=== PATIENT | male | born 1945 | race Caucasian/White ===

== ENCOUNTER → 2016-11-12 | Outpatient (CLI) | payer MEDICARE ==
--- NOTE | 2016-11-12 09:11 | XR ---
EXAMINATION TYPE: XR lumbar spine 2 or 3V DATE OF EXAM: 11/12/2016 8:57 AM COMPARISON: NONE HISTORY: Low back pain TECHNIQUE: 3 view lumbar spine FINDINGS: There is very dense calcification through the aorta. There 5 lumbar-type vertebral bodies. L1-L3 pedicles are intact. L4 and L5 pedicles are obscured by pedicle screws and fixation rods. Disc spacer is present L4-5. Some posterior disc space narrowing at L3-4 is present. There is narrowing of the L5-S1 disc height. Alignment is normal. IMPRESSION: 1. Postsurgical L4-L5 pedicle screws. 2. Degenerative disc changes lower lumbar spine
== END | disposition home or self-care (01) ==
LOC: RADXRMAIN 08:37
PROVIDERS: ATTEND Internal Medicine Geriatric Medicine
DX: M47.816 Spondylosis without myelopathy or radiculopathy, lumbar region (principal); Z98.890 Other specified postprocedural states
CPT/HCPCS: 72100

== ENCOUNTER → 2016-12-26 | Outpatient (CLI) | payer MEDICARE ==
[2016-12-26 08:28] LABS: Blood Urea Nitrogen 14 mg/dL (9-20); Non-African American GFR(MDRD) >60 (>60 ml/min/1.73 sqM)
== END | disposition home or self-care (01) ==
LOC: LABWHC1 07:58
PROVIDERS: ATTEND Physical Medicine & Rehabilitation
DX: Z01.818 Encounter for other preprocedural examination (principal); N28.9 Disorder of kidney and ureter, unspecified; M47.27 Other spondylosis with radiculopathy, lumbosacral region; Z98.1 Arthrodesis status; Z86.19 Personal history of other infectious and parasitic diseases
CPT/HCPCS: 36415; 82565; 84520

== ENCOUNTER → 2018-01-07 | Outpatient (CLI) | payer MEDICARE ==
[2018-01-07 10:37] LABS: Blood Urea Nitrogen 14 mg/dL (9-20)
--- NOTE | 2018-01-07 13:15 | CT ---
EXAMINATION TYPE: CT angio neck DATE OF EXAM: 01/07/2018 COMPARISON: None HISTORY: 72-year-old male follow-up Carotid Stenosis TECHNIQUE: Contiguous axial scanning of the head and neck performed with IV Contrast, patient injecte d with 100 ml mL of Isovue 370. Coronal/sagittal MIP reconstructions performed. 3-D reconstructions g enerated on a dedicated independent workstation. CT DLP: 265.00 mGycm Automated exposure control for dose reduction was used. 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 There is moderate atherosclerotic lynette cification within the aortic arch. Emphysematous changes in the visualized upper lungs. Mild atherosclerotic narrowing at the origin of the left common carotid artery. Mild atherosclerotic calcification eccentrically within the upper left common carotid artery. However, there is more sever e atherosclerotic calcification at the bifurcation causing a severe, 70% stenosis of the distal left CCA just prior to the bifurcation. There is mild, less than 25% atherosclerotic narrowing within the left carotid bulb. Tortuosity of th e upper left ICA. On the right, there is motion artifact causing blurring of the lumen at the brachiocephalic bifurcati on and proximal left common and subclavian arteries. Mild atherosclerotic narrowing at the origin of the right subclavian artery. Severe atherosclerotic calcification at the right carotid bifurcation causing a severe, 80% stenosis of the distal CCA just prior to the bifurcation. Atherosclerotic calcifications continue eccentricall y within the right carotid bulb where there is mild,, less than 50% stenosis. Prominent atherosclerotic calcifications at the origin of the bilateral vertebral arteries. Underlyin g severe stenoses difficult to exclude. IMPRESSION: 1. SEVERE ATHEROSCLEROTIC CALCIFICATION AT THE BILATERAL BIFURCATIONS. 2. ON THE RIGHT, THIS RESULTS IN A SEVERE, 80% STENOSIS OF THE DISTAL CCA JUST PRIOR TO THE BIFURCATI ON AND MILD, LESS THAN 50% STENOSIS AT THE RIGHT CAROTID BULB. 3. ON THE LEFT, THIS RESULTS IN A SEVERE, 70% STENOSIS OF THE DISTAL CCA JUST PRIOR TO THE BIFURCATIO N AND MILD, LESS THAN 25% STENOSIS AT THE LEFT CAROTID BULB. 4. PROMINENT ATHEROSCLEROTIC CALCIFICATIONS AT THE BILATERAL VERTEBRAL ARTERY ORIGINS. UNDERLYING SEV ERE STENOSES NOT EXCLUDED.
== END | disposition home or self-care (01) ==
LOC: RADCTMAIN 09:47
PROVIDERS: ATTEND Surgery
DX: I65.23 Occlusion and stenosis of bilateral carotid arteries (principal)
CPT/HCPCS: 82565; 84520; 70498; 36415; Q9967

== ENCOUNTER → 2018-02-26 | Outpatient (CLI) | payer MEDICARE ==
[2018-02-26 10:55] LABS: Appearance,Urine Clear (Clear); Bilirubin,Urine Negative (Negative); Blood,Urine Negative (Negative); Color,Urine Yellow; Glucose,Urine (UA) Negative (Negative); Ketones,Urine Negative (Negative); Leukocyte Esterase,Urine Negative (Negative); Nitrite,Urine Negative (Negative); PH, Urine 6.5 (5.0-8.0); Protein,Urine Negative (Negative); Specific Gravity,Urine 1.011 (1.001-1.035); Urobilinogen,Urine <2.0 mg/dL (<2.0)
[2018-02-26 10:59] LABS: Basophils % (A) 0 %; Eosinophils # (A) 0.1 k/uL (0-0.7); Eosinophils % (A) 2 %; HCT 38.7 % (39.0-53.0); HGB 12.7 gm/dL (13.0-17.5); Lymphocytes # (A) 0.8 k/uL (1.0-4.8); Lymphocytes % (A) 24 %; MCH 33.6 pg (25.0-35.0); MCHC 32.8 g/dL (31.0-37.0); MCV 102.3 fL (80.0-100.0); Macrocytosis Slight; Mean Platelet Volume 6.7; Monocytes # (A) 0.4 k/uL (0-1.0); Monocytes % (A) 11 %; Neutrophils % (A) 60 %; Platelet Count 226 k/uL (150-450); RBC 3.78 m/uL (4.30-5.90); WBC 3.4 k/uL (3.8-10.6)
[2018-02-26 11:10] LABS: Anion Gap 7 mmol/L; Blood Urea Nitrogen 14 mg/dL (9-20); Carbon Dioxide 29 mmol/L (22-30); Chloride 106 mmol/L (98-107); Potassium 4.3 mmol/L (3.5-5.1); Sodium 142 mmol/L (137-145)
== END | disposition home or self-care (01) ==
LOC: LABPAT 09:37
PROVIDERS: ATTEND Surgery
DX: Z01.812 Encounter for preprocedural laboratory examination (principal); I65.22 Occlusion and stenosis of left carotid artery
CPT/HCPCS: 36415; 80051; 81003; 82565; 84520; 85025; 86850; 86900; 86901

== ENCOUNTER 2018-03-05 07:03 | Inpatient (IN) | payer MEDICARE ==
[2018-02-27 15:31] VITALS: BMI 25.0
[~2018-03-05 07:03] MED LIST: DEXAMETHASONE SOD PHOSPHATE 10 MG/ML 1 ML VIAL IV ONE; LIDOCAINE 1% 20 ML VIAL (10MG/ML) FOR IV START INTRADERMA PRN; MIDAZOLAM 2 MG/2 ML VIAL IV PRN; ONDANSETRON 4 MG/2 ML VIAL IVP ONE; ceFAZolin IN SWFI 2 GM/20 ML SYRINGE IVP ONE; fentaNYL (PF) 50 MCG/ML 2 ML AMP IV PRN
[2018-03-05] MEDS: LACTATED RINGERS 1,000 ML IV SCH (08:24)
[2018-03-05] MEDS ORDERED: PHENYLEPHRINE 40 MG in SODIUM CHLORIDE 0.9% 250 ML IV SCH (08:30)
[2018-03-05] MEDS ORDERED: NITROGLYCERIN-D5W PMX 50 MG in DEXTROSE/WATER 1 250ML.BAG IV SCH (08:30)
[2018-03-05] MEDS ORDERED: HEPARIN SODIUM,PORCINE 10,000 UNIT/ML 1 ML VIAL ONE (09:48)
[2018-03-05] MEDS ORDERED: LABETALOL 5 MG/ML VIAL MDV ONE (09:48)
[2018-03-05] MEDS ORDERED: GLYCOPYRROLATE 0.2 MG/ML 2 ML VIAL ONE (09:48)
[2018-03-05] MEDS ORDERED: PHENYLEPHRINE-0.9% NACL SYG 1 MG/10 ML SYRINGE ONE (09:48)
[2018-03-05] MEDS ORDERED: fentaNYL (PF) 50 MCG/ML 2 ML AMP ONE (09:48)
[2018-03-05] MEDS ORDERED: PROTAMINE SULFATE 10 MG/ML 5 ML VIAL IV ONE (09:48)
[2018-03-05] MEDS ORDERED: SUCCINYLCHOLINE CHLORIDE 100 MG/5 ML SYR IV ONE (09:48)
[2018-03-05] MEDS ORDERED: LIDOCAINE 1% INJ 10MG/ML (20 ML MDV) ONE (09:48)
[2018-03-05] MEDS ORDERED: MIDAZOLAM 2 MG/2 ML VIAL ONE (09:48)
[2018-03-05] MEDS ORDERED: NEOSTIGMINE 1 MG/ML 10 ML VIAL ONE (09:48)
[2018-03-05] MEDS ORDERED: ROCURONIUM BROMIDE 10 MG/ML 10 ML VIAL IV ONE (09:48)
[2018-03-05] MEDS ORDERED: PROPOFOL 10 MG/ML 20 ML VIAL IV ONE (09:48)
[2018-03-05] MEDS ORDERED: THROMBIN (BOVINE) 5,000 UNIT VIAL TOPICAL ONE ×2 (10:58)
[2018-03-05] MEDS ORDERED: GELATIN SPONGE,ABSORB (LARGE) 1 EACH SPONGE TOPICAL ONE (10:59)
[2018-03-05] MEDS ORDERED: LIDOCAINE 1% INJ 10MG/ML (20 ML MDV) IM ONE (11:01)
[2018-03-05] MEDS ORDERED: LACTATED RINGERS 1,000 ML IV ONE ×2 (11:37→16:15)
[2018-03-05] MEDS ORDERED: HYDROcodone/APAP 5-325MG 1 EACH TAB PO PRN (11:51)
[2018-03-05] MEDS ORDERED: CYCLOBENZAPRINE 10 MG TAB PO PRN (11:55)
--- NOTE | 2018-03-05 12:10 | P.OP ---
Date of Procedure: 03/05/18 Preoperative Diagnosis: Urodynamic severe left carotid stenosis Postoperative Diagnosis: Same Procedure(s) Performed: Left carotid endarterectomy with patch angioplasty. Implants: Bovine pericardial patch Anesthesia: SERA Surgeon: Freddy Moore Estimated Blood Loss (ml): 50 Urine output (ml): 300 Pathology: other (Left carotid plaque) Condition: stable Disposition: PACU Indications for Procedure: Hemodynamically severe left internal carotid artery stenosis. Patient is a 72-year-old male who has a long-standing history of peripheral vascular disease affecting both lower extremities who in a routine's surveillance was noted to have bilateral carotid bruits. He did undergo carotid duplex and eventually a cerebral angiogram that was remaining hemodynamically severe left ICA stenosis. We discussed both medical and surgical options. Was felt the patient be a good candidate for endarterectomy. The procedure, risk and benefits were discussed with the patient and the patient wished to proceed with carotid endarterectomy. Operative Findings: Urinary severe left carotid stenosis Description of Procedure: Patient was brought to the [facility] and placed in the supine position Mr. general endotracheal anesthesia delivered by the department anesthesiology. Patient received prophylactically administered intravenous antibiotics in the perioperative phase. Gómez catheter was placed to gravity drainage. The left neck supra and infraclavicular areas as well as the anterior chest wall were sterilely prepped and draped in usual manner. A skin incision was made along the lateral aspect of the neck anterior to the sternocleidomastoid border. The incision was deepened through the subcu change tissues. Hemostasis was achieved using electrocautery. Incision was deepened through the subcutaneous tissues. Facial vein was identified doubly ligated with silk suture and divided. Dissection was carried down the level the carotid sheath. The carotid artery was identified. The internal jugular vein was mobilized posteriorly, fully exposing the carotid artery. The common carotid artery was encircled Vesseloops as far proximally as possible. The dissection was then carried along the common carotid artery to the level of bulb. The external carotid and superior thyroid arteries were encircled Vesseloops. The dissection was then carried along the internal carotid to a level past the plaque burden. The vagus nerve was identified and left undisturbed. The hypoglossal nerve was also identified and left undisturbed. The patient was systemically heparinized and ACT was drawn. This was measured at 321. Vesseloops around the external carotid and superior thyroid were drawn closed followed by the internal and finding the common Carotid artery. Arteriotomy was made in the common and extended with Pott Rider scissors past the level of plaque in the internal carotid artery. Good backbleeding was identified. Stump pressure was obtained and mean stump pressure was 70 mmHg. Thus was felt no shunting was necessary. Endarterectomy was then performed beginning at the level of the common carotid extending to the level of bulb. Retraction endarterectomy was performed on the external system. The endarterectomy was then continued into the internal carotid and the distal end feathered well without need for tacking suture. The plaque was then sent to pathology for further evaluation. Remaining luminal surface was inspected for any loose or free-floating material and removed where identified. Bovine pericardial patch was selected and patch angioplasty closure of the arteriotomy was completed with 6-0 Prolene suture placed in running fashion. Just prior to completion of the anastomotic line backbleeding was allowed to occur through the internal system. Backbleeding was then allowed to occur through the external system after the origin of the internal was occluded as well as flushing through the common system. No thrombus was retrieved and any situation. The anastomotic line was completed. The internal was then occluded at its origin. Surrounding the superior thyroid and external carotid and then the common carotid were released thus flushing any potential debris into the external system. Flow was then restored into the internal system. Excellent pulse was identified within the internal carotid distal to the endarterectomy plane. The heparin was reversed with 25 mg of protamine. Powdered Surgicel was placed about the anastomotic line to help assure hemostasis. The wound was irrigated with antibiotic containing solution and no further points of bleeding were noted. Deep tissues were closed with 3-0 Vicryl. Dermis was closed with 4-0 Monocryl placed in running intradermal fashion. Steri-Strips and appropriate dressing was applied. She tolerated the procedure well and was extubated. He awoke without apparent neurologic deficit and was taken to the recovery area in satisfactory and stable condition.
[2018-03-05] MEDS: MORPHINE SULFATE 4 MG/ML SYRINGE IV ONE ×4 (12:39→14:08)
[2018-03-05] MEDS ORDERED: BISACODYL 5 MG TABLET.DR PO ONE (13:00)
[2018-03-05 17:07] LABS: Glucose,Whole Blood 137 mg/dL (75-99)
[2018-03-05] MEDS: GABAPENTIN 300 MG CAP PO SCH ×2 (17:10→22:05)
[2018-03-05] MEDS: ceFAZolin 1,000 MG in DEXTROSE/WATER 1 50ML.BAG IVPB SCH ×2 (17:51→23:41)
[2018-03-05] MEDS ORDERED: PRAVASTATIN SODIUM 40 MG TAB PO SCH (21:00)
[2018-03-05] MEDS: HYDROcodone/APAP 5-325MG 1 EACH TAB PO PRN (22:04)
[2018-03-06] MEDS: HYDROcodone/APAP 5-325MG 1 EACH TAB PO PRN (04:47)
[2018-03-06 04:52] LABS: Basophils % (A) 0 %; Eosinophils % (A) 1 %; HGB 11.7 gm/dL (13.0-17.5); Lymphocytes # (A) 0.7 k/uL (1.0-4.8); Lymphocytes % (A) 11 %; MCH 32.5 pg (25.0-35.0); MCHC 32.6 g/dL (31.0-37.0); MCV 99.8 fL (80.0-100.0); Macrocytosis Slight; Mean Platelet Volume 7.3; Monocytes # (A) 0.6 k/uL (0-1.0); Monocytes % (A) 9 %; Neutrophils # (A) 4.7 k/uL (1.3-7.7); Neutrophils % (A) 77 %; Platelet Count 247 k/uL (150-450); RDW 14.2 % (11.5-15.5); WBC 6.1 k/uL (3.8-10.6)
[2018-03-06 05:08] LABS: Anion Gap 6 mmol/L; Blood Urea Nitrogen 12 mg/dL (9-20); Calcium 8.8 mg/dL (8.4-10.2); Carbon Dioxide 26 mmol/L (22-30); Chloride 105 mmol/L (98-107); Glucose 104 mg/dL (74-99); Potassium 3.9 mmol/L (3.5-5.1); Sodium 137 mmol/L (137-145)
[2018-03-06] MEDS: GABAPENTIN 300 MG CAP PO SCH (08:43)
[2018-03-06] MEDS: LACTATED RINGERS 1,000 ML IV SCH (08:45)
[2018-03-06] MEDS ORDERED: LISINOPRIL 20 MG TAB PO SCH (09:00)
[2018-03-06] MEDS ORDERED: ALLOPURINOL 300 MG TAB PO SCH (09:00)
[2018-03-06] MEDS ORDERED: HYDROCHLOROTHIAZIDE 25 MG TAB PO SCH (09:00)
[2018-03-06] MEDS ORDERED: ASPIRIN 81 MG PO SCH (09:00)
--- NOTE | 2018-03-06 10:50 | P.PN ---
Subjective Progress Note Date: 03/06/18 Principal diagnosis: Left ICA stenosis Patient is without symptoms status post left carotid endarterectomy yesterday. He is requiring no IV medications. He denies neurologic symptoms. No shortness of breath or chest discomfort. Objective - Vital Signs Vital signs: Vital Signs Temp 98 F 03/06/18 08:00 Pulse 63 03/06/18 09:00 Resp 16 03/06/18 09:00 BP 113/51 03/06/18 00:00 Pulse Ox 95 03/06/18 09:00 Intake & Output 03/05/18 03/06/18 03/06/18 18:59 06:59 18:59 Intake Total 2160 360 Output Total 350 900 Balance 1810 -540 Weight 83.7 kg Intake: IV 2000 340 Lactated Ringers 1,000 ml 240 @ 20 mls/hr IV .Q24H [facility] Rx#:[id number] ceFAZolin 1,000 mg In 100 Dextrose/Water 1 50ml.bag @ 100 mls/hr IVPB Q8HR [facility] Rx#:[id number] Intake, IV Titration 40 20 Amount Lactated Ringers 1,000 ml 40 @ 0 mls/hr IV [facility] Rx#:[id number] Lactated Ringers 1,000 ml 20 @ 20 mls/hr IV .Q24H [facility] Rx#:[id number] Oral 120 Output: Urine 300 900 Estimated Blood Loss 50 Other: # Voids 0 ABP, PAP, CO, CI - Last Documented Arterial Blood Pressure 140/44 - Exam There is some mild swelling. There is no induration. It is not tense or tender. - Labs CBC & Chem 7: 03/06/18 04:35 03/06/18 04:35 Labs: Abnormal Lab Results - Last 24 Hours (Table) 03/05/18 03/06/18 03/06/18 Range/Units 16:48 04:35 04:35 RBC 3.60 L (4.30-5.90) m/uL Hgb 11.7 L (13.0-17.5) gm/dL Hct 36.0 L (39.0-53.0) % Lymphocytes # 0.7 L (1.0-4.8) k/uL Creatinine 0.55 L (0.66-1.25) mg/dL Glucose 104 H (74-99) mg/dL POC Glucose (mg/dL) 137 H (75-99) mg/dL Assessment and Plan (1) Stenosis of left carotid artery Current Visit: Yes Status: Acute Code(s): I65.22 - OCCLUSION AND STENOSIS OF LEFT CAROTID ARTERY SNOMED Code(s): 474103521874983 Plan: The patient is recovered nicely from his left carotid endarterectomy. He is to be discharged on his standard home medications. I gave him instructions in regards to activities and wound care. He will see Dr. Templeton in a week. He will also follow with primary care in a week.
--- NOTE | 2018-03-06 11:22 | P.CONS ---
History of Present Illness - Reason for Consult Consult date: 03/06/18 medical management Requesting physician: Freddy Moore - Chief Complaint status post left carotid endarterectomy. - History of Present Illness This is a 72-year-old male one of Dr. Sloan with a previous medical history significant for hypertension and hypertensive cardiovascular disease, hyperlipidemia, osteoarthritis, history of hepatitis, history of severe peripheral arterial disease status post bilateral fem-pop bypass he was found to have significant stenosis of both carotid artery with 90% stenosis of the left carotid artery and 80% stenosis of the right carotid artery he ended up going for left carotid endarterectomy was done yesterday and we were asked to see him for medicine for medical management. Patient is sitting up in bed in no apparent distress he denies any chest pain, shortness breath, he has no abdominal pain, he still has the arterial line in place, he has no abdominal pain, nausea, vomiting, or diarrhea. Review of Systems Constitutional: Denies chronic headaches, Denies fever, Denies lethargy, Denies weakness Eyes: denies blurred vision, denies bulging eye, denies decreased vision Ears: deny: decreased hearing Ears, nose, mouth and throat: Denies dysphagia, Denies neck lump, Denies sore throat, Denies vertigo Cardiovascular: Reports high blood pressure, Denies chest pain, Denies decreased exercise tolerance, Denies dyspnea on exertion, Denies rapid heart beat, Denies shortness of breath Respiratory: Denies congestion, Denies cough with sputum, Denies home oxygen, Denies sleep apnea, Denies snoring, Denies wheezing Gastrointestinal: Denies abdominal pain, Denies bloating, Denies excessive gas, Denies loss of appetite, Denies melena, Denies nausea, Denies vomiting Genitourinary: Denies dysuria, Denies nocturia, Denies polyuria Musculoskeletal: Denies myalgias Musculoskeletal: absent: ankle pain, ankle stiffness, ankle swelling, elbow pain , elbow stiffness, elbow swelling, foot pain, foot stiffness, foot swelling, hand pain, hand stiffness, hand swelling, hip pain, hip stiffness, hip swelling , knee pain, knee stiffness, knee swelling, shoulder pain, shoulder stiffness, shoulder swelling, wrist pain, wrist stiffness, wrist swelling Integumentary: Denies pruritus, Denies rash Neurological: Denies numbness, Denies weakness Psychiatric: Denies anxiety, Denies depression Endocrine: Denies fatigue, Denies weight change Past Medical History Past Medical History: Hyperlipidemia, Hypertension, Osteoarthritis (OA), Vascular Disorder Additional Past Medical History / Comment(s): HEPATITIS UNKNOWN TYPE YEARS AGO History of Any Multi-Drug Resistant Organisms: None Reported Past Surgical History: Appendectomy, Back Surgery Additional Past Surgical History / Comment(s): LEFT LEG- BYPASS, RIGHT LEG BYPASS , BOWEL SURGERY Past Anesthesia/Blood Transfusion Reactions: No Reported Reaction Smoking Status: Former smoker (patient is spoke about 2 pack every day since was 11-year-old and quit to the age of 38.) - Past Family History Mother Family Medical History: No Reported History (mother at age of 88 from septic shock.) Father Family Medical History: Coronary Artery Disease (CAD) (father at age of 94 he had history of CABG with aortic aneurysm.) Brother(s) Family Medical History: No Reported History (patient has one brother no major medical problem.) Sister(s) Family Medical History: No Reported History (patient has one sister problems) Son(s) Family Medical History: No Reported History (patient has 2 sons no major medical problems.) Daughter(s) Family Medical History: No Reported History (patient has one daughter no major medical problems.) Medications and Allergies Home Medications Medication Instructions Recorded Confirmed Type Allopurinol [Zyloprim] 300 mg PO DAILY 02/27/18 03/05/18 History Aspirin EC [Ecotrin] 650 mg PO TID PRN 02/27/18 03/05/18 History Gabapentin [Neurontin] 300 mg PO TID 02/27/18 03/05/18 History Hydrochlorothiazide 25 mg PO DAILY 02/27/18 03/05/18 History Pravastatin Sodium [Pravachol] 40 mg PO DAILY 02/27/18 03/05/18 History amLODIPine BESYLATE [Norvasc] 10 mg PO DAILY 02/27/18 03/05/18 History Allergies Allergy/AdvReac Type Severity Reaction Status Date / Time lisinopril Allergy Swelling Verified 03/05/18 16:15 OF FACE Physical Exam Vitals: Vital Signs Temp Pulse Pulse Pulse Resp BP BP 03/06/18 09:00 63 16 03/06/18 08:00 98 F 82 18 03/06/18 07:00 55 L 20 03/06/18 06:00 61 16 03/06/18 05:00 82 46 H 03/06/18 04:00 97.7 F 82 56 L 18 03/06/18 03:00 64 20 03/06/18 02:00 53 L 15 03/06/18 01:00 56 L 15 03/06/18 00:00 98 F 61 58 L 24 113/51 03/05/18 23:00 60 14 03/05/18 22:08 62 20 03/05/18 22:00 63 15 03/05/18 21:00 70 20 03/05/18 20:00 98.1 F 84 64 24 03/05/18 19:00 78 17 03/05/18 18:00 85 18 03/05/18 17:45 71 22 03/05/18 17:30 71 18 120/53 03/05/18 17:15 74 24 120/53 03/05/18 17:00 98.3 F 68 17 03/05/18 16:00 64 18 130/45 03/05/18 15:00 66 20 136/49 03/05/18 14:32 68 24 132/53 03/05/18 14:00 69 18 137/58 03/05/18 13:30 69 18 146/53 03/05/18 13:15 64 18 146/52 03/05/18 13:00 64 20 132/44 03/05/18 12:45 65 18 142/46 03/05/18 12:30 67 16 158/56 03/05/18 12:15 66 16 147/64 03/05/18 12:00 67 16 158/85 03/05/18 11:42 97.0 F L 67 16 139/61 BP Pulse Ox 03/06/18 09:00 95 03/06/18 08:00 96 03/06/18 07:00 94 L 03/06/18 06:00 95 03/06/18 05:00 94 L 03/06/18 04:00 93 L 03/06/18 03:00 93 L 03/06/18 02:00 93 L 03/06/18 01:00 90 L 03/06/18 00:00 94 L 03/05/18 23:00 92 L 03/05/18 22:08 93 L 09/20/18 22:00 93 L 03/05/18 21:00 93 L 03/05/18 20:00 93 L 03/05/18 19:00 95 03/05/18 18:00 97 03/05/18 17:45 96 03/05/18 17:30 03/05/18 17:15 96 03/05/18 17:00 96 03/05/18 16:00 98 03/05/18 15:00 122/59 96 03/05/18 14:32 97 03/05/18 14:00 134/68 98 03/05/18 13:30 130/68 97 03/05/18 13:15 96 03/05/18 13:00 96 03/05/18 12:45 132/63 95 03/05/18 12:30 147/64 97 03/05/18 12:15 149/74 96 03/05/18 12:00 150/57 97 03/05/18 11:42 137/61 97 Intake and Output 03/05/18 03/06/18 03/06/18 22:59 06:59 14:59 Intake Total 240 280 Output Total 475 425 Balance -235 -145 Intake: IV 60 280 Lactated Ringers 1,000 ml 60 180 @ 20 mls/hr IV .Q24H [facility] Rx#:[id number] ceFAZolin 1,000 mg In 100 Dextrose/Water 1 50ml.bag @ 100 mls/hr IVPB Q8HR [facility] Rx#:[id number] Intake, IV Titration 60 Amount Lactated Ringers 1,000 ml 40 @ 0 mls/hr IV [facility] Rx#:[id number] Lactated Ringers 1,000 ml 20 @ 20 mls/hr IV .Q24H [facility] Rx#:[id number] Oral 120 Output: Urine 475 425 Other: # Voids 0 0 Weight 83.7 kg ABP, PAP, CO, CI - Last 8 Hours Arterial Blood Pressure 140/44 Arterial Blood Pressure 139/55 Arterial Blood Pressure 142/44 Arterial Blood Pressure 131/39 Arterial Blood Pressure 135/47 Arterial Blood Pressure 142/47 - Constitutional General appearance: average body habitus, no acute distress - EENT Eyes: anicteric sclerae, EOMI, PERRLA, no ptosis, no scleral icterus, normal appearance ENT: hearing grossly normal, NA/AT, normal oropharynx, no thrush Ears: bilateral: normal - Neck Neck: no lymphadenopathy, normal ROM, no rigidity, no stridor, no thyromegaly Carotids: bilateral: upstroke normal (LCEA) Thyroid: bilateral: normal size - Respiratory Respiratory: bilateral: diminished, negative: dullness, rales, rhonchi, wheezing , prolonged expiration, prolonged inspiration - Cardiovascular Rhythm: regular Heart sounds: normal: S1, S2 Abnormal Heart Sounds: systolic murmur, no S3 Gallop, no S4 Gallop, no click - Gastrointestinal General gastrointestinal: normal bowel sounds, soft, no splenomegaly, no tenderness, no umbilical hernia, no ventral hernia - Integumentary Integumentary: normal, normal turgor - Neurologic Neurologic: CNII-XII intact - Musculoskeletal Musculoskeletal: gait normal, strength equal bilaterally - Psychiatric Psychiatric: A&O x's 3, appropriate affect, intact judgment & insight Results CBC & Chem 7: 03/06/18 04:35 03/06/18 04:35 Labs: Abnormal Lab Results - Last 24 Hours (Table) 03/05/18 03/06/18 03/06/18 Range/Units 16:48 04:35 04:35 RBC 3.60 L (4.30-5.90) m/uL Hgb 11.7 L (13.0-17.5) gm/dL Hct 36.0 L (39.0-53.0) % Lymphocytes # 0.7 L (1.0-4.8) k/uL Creatinine 0.55 L (0.66-1.25) mg/dL Glucose 104 H (74-99) mg/dL POC Glucose (mg/dL) 137 H (75-99) mg/dL Assessment and Plan Assessment: Assessment and plan: 1. Postoperative day #1 status post left carotid adenoidectomy. Patient has been off medicine drip, his blood pressure is stable at this time, patient was seen earlier by vascular surgery and he has been cleared to be discharged home. Patient was instructed to use the incentive spirometer to reduce the incidence of atelectasis and hospital-acquired pneumonia, patient pain is controlled well he will be discharged home with follow-up with his primary care physician as an outpatient 2 weeks also with vascular surgery per their recommendations. 2. History of severe PAD post bilateral fem-pop bypass. Continue patient on aspirin 325 mg once every day, continue patient on Pravachol 40 mg orally once every day, increase activity. 3. Hypertension and hypertensive cardiovascular disease. Continue with amlodipine 5 mg orally once every day and hydrochlorothiazide 25 mg orally once every day. 4. Hyperlipidemia. Continue Pravachol 40 mg at bedtime. 5. History of gout. Continue patient on allopurinol 300 mg orally once every day. 6. Chronic low back pain. Continue gabapentin 600 mg orally 3 times every day. 7. DVT prophylaxis. 8. GI prophylaxis. 9. Thank you for the consult patient is medically stable to be discharged home
[2018-03-06 12:53] VITALS: BP 143/52; PULSE 63; RESP 18; TEMP 97.7
== END 2018-03-06 13:29 | disposition home or self-care (01) | DRG 39 ==
LOC: 2ORMAIN 07:03 → 6ICU 16:08
PROVIDERS: ADMIT Surgery; ATTEND Surgery
PROC: 03UL0KZ Supplement Left Internal Carotid Artery with Nonautologous Tissue Substitute, Open Approach (ICD-10-PCS; principal; 2018-03-05 09:00)
PROC: 03CL0ZZ Extirpation of Matter from Left Internal Carotid Artery, Open Approach (ICD-10-PCS; principal; 2018-03-05 09:00)
DX: I65.23 Occlusion and stenosis of bilateral carotid arteries (principal); E78.5 Hyperlipidemia, unspecified; G89.29 Other chronic pain; I11.9 Hypertensive heart disease without heart failure; I73.9 Peripheral vascular disease, unspecified; Z79.899 Other long term (current) drug therapy; Z82.49 Family history of ischemic heart disease and other diseases of the circulatory system; Z87.891 Personal history of nicotine dependence; Z79.82 Long term (current) use of aspirin; Z79.891 Long term (current) use of opiate analgesic; M10.9 Gout, unspecified; Z88.8 Allergy status to other drugs, medicaments and biological substances; M54.5 Low back pain
CPT/HCPCS: 80048; 85025; 86850; 86900; 86901; 88304; 88311

== ENCOUNTER 2018-10-02 09:33 | Inpatient (IN) | payer MEDICARE ==
[2018-10-02] MEDS ORDERED: FUROSEMIDE 10 MG/ML 4 ML VIAL IV STA (10:03)
--- NOTE | 2018-10-02 10:08 | ED ---
General Adult HPI - General Chief complaint: Shortness of Breath Stated complaint: water retention Time Seen by Provider: 10/02/18 09:57 Source: patient, family, RN notes reviewed Mode of arrival: ambulatory Limitations: no limitations - History of Present Illness Initial comments: Patient is a pleasant 73-year-old male presenting to the emergency department with difficulty breathing. Symptoms have been present for several days. Patient has had some bilateral leg edema over the past several days. Dyspnea does worsen with exertion. Patient also has orthopnea. No history of similar symptoms previously. No known history of bradycardia. No chest pain. No cough or fever. - Related Data Home Medications Medication Instructions Recorded Confirmed Allopurinol [Zyloprim] 300 mg PO DAILY 02/27/18 10/02/18 Gabapentin [Neurontin] 300 mg PO BID 02/27/18 10/02/18 Hydrochlorothiazide 25 mg PO DAILY 02/27/18 10/02/18 Pravastatin Sodium [Pravachol] 40 mg PO DAILY 02/27/18 10/02/18 amLODIPine BESYLATE [Norvasc] 10 mg PO HS 02/27/18 10/02/18 Ascorbic Acid [Vitamin C] 500 mg PO DAILY 10/02/18 10/02/18 Cholecalciferol [Vitamin D3] 1,000 unit PO DAILY 10/02/18 10/02/18 Multivitamins, Thera [Multivitamin 1 tab PO DAILY 10/02/18 10/02/18 (formulary)] Allergies Allergy/AdvReac Type Severity Reaction Status Date / Time lisinopril Allergy Swelling Verified 10/02/18 09:53 OF FACE Review of Systems ROS Statement: Those systems with pertinent positive or pertinent negative responses have been documented in the HPI. ROS Other: All systems not noted in ROS Statement are negative. Constitutional: Denies: fever, chills Eyes: Denies: eye pain ENT: Denies: ear pain Respiratory: Reports: dyspnea. Denies: cough Cardiovascular: Denies: chest pain, palpitations Endocrine: Reports: fatigue Gastrointestinal: Denies: abdominal pain Genitourinary: Denies: dysuria Musculoskeletal: Denies: back pain Skin: Denies: rash Neurological: Denies: weakness Past Medical History Past Medical History: Hyperlipidemia, Hypertension, Osteoarthritis (OA), Vascular Disorder Additional Past Medical History / Comment(s): HEPATITIS UNKNOWN TYPE YEARS AGO History of Any Multi-Drug Resistant Organisms: None Reported Past Surgical History: Appendectomy, Back Surgery Additional Past Surgical History / Comment(s): LEFT LEG- BYPASS, RIGHT LEG BYPASS , BOWEL SURGERY Past Anesthesia/Blood Transfusion Reactions: No Reported Reaction Past Psychological History: No Psychological Hx Reported Smoking Status: Former smoker Past Alcohol Use History: Daily Past Drug Use History: None Reported - Past Family History Mother Family Medical History: No Reported History (mother at age of 88 from septic shock.) Father Family Medical History: Coronary Artery Disease (CAD) (father at age of 94 he had history of CABG with aortic aneurysm.) Brother(s) Family Medical History: No Reported History (patient has one brother no major medical problem.) Sister(s) Family Medical History: No Reported History (patient has one sister problems) Son(s) Family Medical History: No Reported History (patient has 2 sons no major medical problems.) Daughter(s) Family Medical History: No Reported History (patient has one daughter no major medical problems.) General Exam Limitations: no limitations General appearance: alert, in no apparent distress Head exam: Present: atraumatic Eye exam: Present: normal appearance, PERRL ENT exam: Present: normal oropharynx Neck exam: Present: normal inspection Respiratory exam: Present: decreased breath sounds (Bilateral bases) Cardiovascular Exam: Present: bradycardia Expanded Peripheral pulses: 2+: Radial (R), Radial (L), Dorsalis Pedis (R), Dorsalis Pedis (L) GI/Abdominal exam: Present: soft. Absent: tenderness Extremities exam: Present: pedal edema (+1 bilateral). Absent: calf tenderness Neurological exam: Present: alert Psychiatric exam: Present: normal affect, normal mood Skin exam: Present: normal color Course Vital Signs 10/02/18 10/02/18 09:42 10:10 Temperature 96 F L Pulse Rate 44 L Respiratory 24 16 Rate Blood Pressure 186/61 O2 Sat by Pulse 94 L Oximetry EKG Findings - EKG Comments: EKG Findings:: Sinus bradycardia at 43. There is concern for second degree AV block type II. DC 274. QRS 168. QTC 582. QTC 491. Left axis. Left bundle branch block. No acute ST change. Septal Q waves. Medical Decision Making - Medical Decision Making Patient was reevaluated. Patient and family updated on results and plan. Case was discussed in detail with Dr. Neil, who will consult. Case was also discussed in detail with Dr. Miles, who will admit for Dr. Sloan. - Lab Data Result diagrams: 10/02/18 10:05 10/02/18 10:05 Lab Results 10/02/18 10/02/18 10/02/18 Range/Units 10:05 10:05 10:05 WBC 5.5 (3.8-10.6) k/uL RBC 4.21 L (4.30-5.90) m/uL Hgb 13.8 (13.0-17.5) gm/dL Hct 41.8 (39.0-53.0) % MCV 99.4 (80.0-100.0) fL MCH 32.8 (25.0-35.0) pg MCHC 33.0 (31.0-37.0) g/dL RDW 14.8 (11.5-15.5) % Plt Count 247 (150-450) k/uL Neutrophils % 73 % Lymphocytes % 12 % Monocytes % 10 % Eosinophils % 1 % Basophils % 0 % Neutrophils # 4.0 (1.3-7.7) k/uL Lymphocytes # 0.7 L (1.0-4.8) k/uL Monocytes # 0.6 (0-1.0) k/uL Eosinophils # 0.1 (0-0.7) k/uL Basophils # 0.0 (0-0.2) k/uL Macrocytosis Slight PT (9.0-12.0) sec INR (<1.2) APTT (22.0-30.0) sec Sodium 136 L (137-145) mmol/L Potassium 3.8 (3.5-5.1) mmol/L Chloride 104 (98-107) mmol/L Carbon Dioxide 19 L (22-30) mmol/L Anion Gap 13 mmol/L BUN 13 (9-20) mg/dL Creatinine 0.72 (0.66-1.25) mg/dL Est GFR (CKD-EPI)AfAm >90 (>60 ml/min/1.73 sqM) Est GFR (CKD-EPI)NonAf >90 (>60 ml/min/1.73 sqM) Glucose 93 (74-99) mg/dL Calcium 9.8 (8.4-10.2) mg/dL Total Bilirubin 0.9 (0.2-1.3) mg/dL AST 45 (17-59) U/L ALT 81 H (21-72) U/L Alkaline Phosphatase 162 H (38-126) U/L NT-Pro-B Natriuret Pep 1610 pg/mL Total Protein 7.5 (6.3-8.2) g/dL Albumin 4.5 (3.5-5.0) g/dL 10/02/18 Range/Units 10:05 WBC (3.8-10.6) k/uL RBC (4.30-5.90) m/uL Hgb (13.0-17.5) gm/dL Hct (39.0-53.0) % MCV (80.0-100.0) fL MCH (25.0-35.0) pg MCHC (31.0-37.0) g/dL RDW (11.5-15.5) % Plt Count (150-450) k/uL Neutrophils % % Lymphocytes % % Monocytes % % Eosinophils % % Basophils % % Neutrophils # (1.3-7.7) k/uL Lymphocytes # (1.0-4.8) k/uL Monocytes # (0-1.0) k/uL Eosinophils # (0-0.7) k/uL Basophils # (0-0.2) k/uL Macrocytosis PT 10.2 (9.0-12.0) sec INR 0.9 (<1.2) APTT 25.5 (22.0-30.0) sec Sodium (137-145) mmol/L Potassium (3.5-5.1) mmol/L Chloride (98-107) mmol/L Carbon Dioxide (22-30) mmol/L Anion Gap mmol/L BUN (9-20) mg/dL Creatinine (0.66-1.25) mg/dL Est GFR (CKD-EPI)AfAm (>60 ml/min/1.73 sqM) Est GFR (CKD-EPI)NonAf (>60 ml/min/1.73 sqM) Glucose (74-99) mg/dL Calcium (8.4-10.2) mg/dL Total Bilirubin (0.2-1.3) mg/dL AST (17-59) U/L ALT (21-72) U/L Alkaline Phosphatase (38-126) U/L NT-Pro-B Natriuret Pep pg/mL Total Protein (6.3-8.2) g/dL Albumin (3.5-5.0) g/dL Disposition Clinical Impression: Bradycardia, Congestive heart failure, Second degree heart block Disposition: ADMITTED IP TO THIS HOSP Is patient prescribed a controlled substance at d/c from ED?: No Referrals: Terry Sloan MD [Primary Care Provider] - 1-2 days Decision Time: 10:54
[2018-10-02 10:20] LABS: Basophils % (A) 0 %; Eosinophils # (A) 0.1 k/uL (0-0.7); Eosinophils % (A) 1 %; HCT 41.8 % (39.0-53.0); HGB 13.8 gm/dL (13.0-17.5); Lymphocytes # (A) 0.7 k/uL (1.0-4.8); Lymphocytes % (A) 12 %; MCH 32.8 pg (25.0-35.0); MCV 99.4 fL (80.0-100.0); Macrocytosis Slight; Mean Platelet Volume 8.1; Monocytes # (A) 0.6 k/uL (0-1.0); Monocytes % (A) 10 %; Neutrophils % (A) 73 %; Platelet Count 247 k/uL (150-450); RBC 4.21 m/uL (4.30-5.90); RDW 14.8 % (11.5-15.5); WBC 5.5 k/uL (3.8-10.6)
[2018-10-02 10:27] LABS: INR 0.9 (<1.2); Partial Thromboplastin Time 25.5 sec (22.0-30.0); Prothrombin Time 10.2 sec (9.0-12.0)
[2018-10-02 10:28] LABS: ALT 81 U/L (21-72); AST 45 U/L (17-59); Albumin 4.5 g/dL (3.5-5.0); Alkaline Phosphatase 162 U/L (38-126); Anion Gap 13 mmol/L; Blood Urea Nitrogen 13 mg/dL (9-20); Calcium 9.8 mg/dL (8.4-10.2); Carbon Dioxide 19 mmol/L (22-30); Chloride 104 mmol/L (98-107); Glucose 93 mg/dL (74-99); Potassium 3.8 mmol/L (3.5-5.1); Sodium 136 mmol/L (137-145); Total Bilirubin 0.9 mg/dL (0.2-1.3); Total Protein 7.5 g/dL (6.3-8.2)
--- NOTE | 2018-10-02 10:33 | XR ---
EXAMINATION TYPE: XR chest 2V DATE OF EXAM: 10/02/2018 COMPARISON: 11/26/2012 HISTORY: Difficulty breathing TECHNIQUE: Frontal and lateral views of the chest are obtained. FINDINGS: Underlying COPD is seen with biapical lucency and flattening of the diaphragms. Trace pleu ral effusions are noted. There is increase in interstitial prominence in comparison to the prior. 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 Cranial mediasti nal silhouette is otherwise within normal limits. IMPRESSION: New trace pleural effusions, underlying emphysematous change, and increasing interstitia l prominence that may relate to fluid overload or atypical pneumonitis.
[2018-10-02] MEDS ORDERED: ASPIRIN 325 MG TAB PO STA (10:55)
[2018-10-02] MEDS ORDERED: ceFAZolin 1,000 MG in SODIUM CHLORIDE 0.9% IRRIGATIO 250 ML IRRIGATION ONE (11:45)
[2018-10-02] MEDS ORDERED: ceFAZolin IN SWFI 2 GM/20 ML SYRINGE IVP ONE ×2 (11:45→14:15)
[2018-10-02] MEDS ORDERED: SODIUM CHLORIDE 0.9% 1,000 ML IV ONE (13:20)
[2018-10-02] MEDS ORDERED: IODIXANOL 270 MG/ML 50 ML ML IV ONE (13:21)
[2018-10-02] MEDS ORDERED: IV FLUID CONTINUATION 400 ML IV ONE (13:21)
[2018-10-02] MEDS ORDERED: MIDAZOLAM (PF) 2 MG/2 ML VIAL IVP ONE (14:15)
[2018-10-02] MEDS: LIDOCAINE 1% INJ 10MG/ML (20 ML MDV) SQ ONE ×2 (14:16→15:45)
[2018-10-02] MEDS ORDERED: LIDOCAINE 1% INJ 10MG/ML (20 ML MDV) SQ ONE ×2 (14:32→15:11)
[2018-10-02] MEDS: NITROGLYCERIN SL TABS 0.4 MG TAB SUBLINGUAL ONE ×2 (14:45→16:17)
[2018-10-02] MEDS ORDERED: FUROSEMIDE 10 MG/ML 4 ML VIAL IV SCH (16:00)
[2018-10-02] MEDS ORDERED: amLODIPine 5 MG TAB PO ONE (16:46)
[2018-10-02] MEDS ORDERED: amLODIPine 5 MG TAB ONE (16:47)
--- NOTE | 2018-10-02 16:48 | CONS ---
CONSULTATION Abiel is a 73-year-old gentleman with history of hypertension and dyslipidemia who presented to hospital complaining of shortness of breath, fatigue, tiredness and leg edema for the last several days. In the emergency room, his heart rate is 40 beats per minute. He is in second-degree heart block. An echocardiogram shows preserved LV function with mild mitral and tricuspid regurgitation and aortic regurgitation. I believe patient's symptoms, heart failure are related to the second-degree heart sounds, and I advised him to undergo permanent pacemaker. If we cannot get it done today, we will do a temporary pacemaker on him. PAST MEDICAL HISTORY: Significant for hypertension. CURRENT MEDICATIONS: Current medications include: 1. Norvasc 10 daily. 2. Multivitamins. 3. Vitamin C. 4. Pravachol 40 daily. 5. Hydrochlorothiazide. 6. Neurontin. 7. Zyloprim. ALLERGIES: LISINOPRIL. FAMILY HISTORY: Negative for premature coronary artery disease. SOCIAL HISTORY: Negative for smoking, EtOH abuse or drug abuse. REVIEW OF SYSTEMS: HEENT is unremarkable. CARDIAC: As described above. RESPIRATORY: As described above. GI: Negative. GENITOURINARY: Negative. ALLERGY: Negative. IMMUNOLOGY: Negative. SKIN: Negative. MUSCULOSKELETAL: Significant for arthritis. PSYCHOSOCIAL: Negative. ENDOCRINE: Negative. DERMATOLOGY: Negative. CONSTITUTIONAL: Significant for fatigue and tiredness. Rest of the system review is not relevant. PHYSICAL EXAMINATION: Patient is comfortable at rest. Afebrile. Heart rate is 43 beats per minute. Blood pressure is 177/65. Oxygen saturation is 93% on 2 L. There is no jugular venous distention. Carotid upstroke is diminished. Chest exam reveals good air entry bilaterally. Heart exam reveals first and second heart sounds. No gallop. No murmur. Abdomen is soft. Examination of extremities reveals bilateral pitting edema. LABS: Hemoglobin 13.8. Creatinine is 0.7. BNP is elevated at 1610. Troponin is normal. TSH is pending at this time. ASSESSMENT: 1. Symptomatic second-degree heart block. 2. Acute diastolic heart failure secondary to bradycardia. 3. Uncontrolled hypertension. PLAN: Patient will need a permanent pacemaker. Treat him with IV diuretics and control his blood pressure optimally. MMODL / IJN: [id number] /
[2018-10-02] MEDS: SODIUM CHLORIDE 0.9% 1,000 ML IV SCH ×2 (16:49→16:50)
--- NOTE | 2018-10-02 17:01 | XR ---
EXAMINATION TYPE: XR chest 1V portable DATE OF EXAM: 10/02/2018 COMPARISON: 10/02/2018 earlier exam INDICATION: Lead placement check TECHNIQUE: Single frontal view of the chest is obtained. FINDINGS: The heart size is mildly prominent. The pulmonary vasculature is increasing in prominence. Some perihilar infiltrates may be developing. The previous small right pleural effusion is less well visualized currently. Pacemaker is placed on the left. No pneumothorax is evident. 2 leads present have normal orientation. IMPRESSION: 1. No pneumothorax post 2-lead pacemaker placement. 2. Changes suggestive for increasing pulmonary edema.
[2018-10-02] MEDS ORDERED: amLODIPine 5 MG TAB PO PRN (17:05)
[2018-10-02] MEDS ORDERED: POTASSIUM CHLORIDE ER 20 MEQ TAB.ER PO STA (17:14)
--- NOTE | 2018-10-02 17:33 | CC ---
CARDIAC CATHETERIZATION REPORT DATE OF SERVICE: 10/02/2018. PROCEDURE PERFORMED: 1. Transvenous temporary pacemaker from the right femoral venous approach. 2. Dual-chamber permanent pacemaker from left infraclavicular approach. PERFORMED BY: Dr. Nam Cruz. SEDATION: Moderate conscious sedation time was 119 minutes. The patient was administered Versed. His oxygen saturation, hemodynamics and EKG were monitored closely. CLINICAL INFORMATION: Mr. Abiel Somers is a 73-year-old gentleman with a history of hypertension and hyperlipidemia, who came into the hospital, complains of weakness, lack of energy, abdominal discomfort, and dizziness and lightheadedness. He was found to be in a high- grade AV block with a 2 as to 1 conduction and underlying wide QRS more or less of a left bundle type. Because of symptomatic bradycardia and high-grade AV block with underlying left bundle, he was advised a dual-chamber pacemaker by Dr. Mcpherson who evaluated him in the emergency room. I went and spoke to the patient and his and explained to him the rationale, risks, benefits, options. They understood all details and wished to proceed with the procedure. PROCEDURE NOTE: Under local anesthesia and strict aseptic precautions, a 6-Khmer introducer was placed in the right femoral vein. Under fluoroscopic guidance, a transvenous 5-Khmer balloon tipped pacer was positioned into the right ventricular apex with a threshold of 0.6 mV. Pacemaker was set at a backup rate of 35 beats per minute with a mA of 5.0. I then unscrubbed and with a new pair of the gloves proceeded to perform the permanent pacemaker. Under strict aseptic precautions and local anesthesia after the antibiotic was infused I obtained an access into the left axillary vein. Initially with a micropuncture needle technique, I attempted access and I hit the artery at least on 2 occasions. I applied pressure, waited for some time and using the venogram as a guide and changing the access point, I was able to get access into the left axillary vein. Fluoroscopic guidance was used to advance the wire. Wire was kept in the right atrium. A 3-1/2 inch linear incision was made medial and parallel to the left deltopectoral groove. Blunt dissection was carried until the pectoral muscle. A subfascial pocket was then performed. I requested the help of Dr. Velazquez when I had difficulty with access but Dr. Velazquez did not perform any intervention. He assisted me mainly with the pocket initially. Subsequently, I continued the procedure. Another access point was obtained medial to the previous access point into the left axillary vein. Another wire was advanced and positioned in the right atrium. A 6-Khmer introducer was advanced over the wire. Under fluoroscopic guidance, a ventricular lead was positioned in the right ventricular apex. Thresholds and sensitivities were obtained. Good numbers were achieved. The lead was then secured to the underlying muscle with 2 separate sutures of 0 silk. The pacemaker position was checked in MONGOLIAN and SANCHEZ projections. I performed a 10 V pacing as well to check for any diaphragmatic pacing which was not evident. I then advanced another 6-Khmer introducer into the next wire medial to the previous wire. By this time, patient went into an atrial flutter at a rate of about 35 to 40 beats per minute. I advanced and position the atrial lead in the right atrial appendage. Unfortunately, we could not pace the atrium because patient was in atrial flutter. P waves were about 1.0-1.5. These were all flutter waves. The impedance was 410 mV. The lead was secured to the underlying fascia. The diaphragmatic pacing was performed and the lead was checked in MONGOLIAN and SANCHEZ projections. The slack in both the leads was ensured. The leads were then connected to the pulse generator and the pulse generator was placed in the pocket. The pocket was closed in 2 layers. Excellent hemostasis was achieved. Patient tolerated the procedure well without complications. A chest x-ray is pending. PACEMAKER INFORMATION: The wound care nurse [employer], model Assurity MRI 2272 serial number [id number]. The atrial lead wound care nurse [employer], model number tendril [id number] TC/52, serial number [id number]. Ventricular lead wound care nurse [employer], model tendril STS [id number] EC/58, serial number [id number]. Atrial threshold could not be obtained because the patient was in flutter. The impedance was 410 mV and the P-waves were between 1.0 and 1.5 mV, but these are flutter waves. Ventricular threshold was 0.75 mV at 0.4 milliseconds. The R-wave is a more than 12.0. Impedance was 830 mV. The pacemaker was set at a backup rate of 50 and a high rate of 110 with a paced AV delay of 200 milliseconds. The pacemaker was set to a DDD mode. The patient however is in a atrial flutter with a slow rate and therefore mode switch will probably happen. Patient tolerated procedure well without complications. He was sent to the telemetry unit and he will have an x-ray today. JEREMIAS / GEOVANY: [id number] /
[2018-10-02] MEDS ORDERED: HEPARIN SODIUM,PORCINE 5,000 UNIT/ML 1 ML VIAL SQ SCH (21:00)
[2018-10-02] MEDS ORDERED: amLODIPine 10 MG TAB PO SCH (21:00)
[2018-10-02] MEDS: ceFAZolin IN SWFI 2 GM/20 ML SYRINGE IVP SCH (21:25)
[2018-10-02] MEDS: HEPARIN SODIUM,PORCINE 5,000 UNIT/ML 1 ML VIAL SQ SCH (21:26)
[2018-10-02] MEDS: GABAPENTIN 300 MG CAP PO SCH (21:26)
[2018-10-02] MEDS: ACETAMINOPHEN TAB 325 MG TAB PO PRN (23:07)
[2018-10-03] MEDS: ceFAZolin IN SWFI 2 GM/20 ML SYRINGE IVP SCH ×3 (01:12→12:14)
[2018-10-03] MEDS: ACETAMINOPHEN TAB 325 MG TAB PO PRN ×3 (07:01→23:09)
--- NOTE | 2018-10-03 07:44 | XR ---
EXAMINATION TYPE: XR chest 2V DATE OF EXAM: 10/03/2018 COMPARISON: 10/02/2018 HISTORY: 73-year-old male lead placement check TECHNIQUE: PA and lateral views FINDINGS: Left anterior chest wall pacemaker generator with right atrial and right ventricular leads. Heart upper limits of normal in size. Atherosclerotic calcifications within the aorta. Trace pneumome diastinum difficult to exclude on the left lateral margin of the upper descending thoracic aorta. Thi s may have been present in retrospect. No appreciable pneumothorax. Patchy right mid and lower lung d ensity slightly increased. Small effusions are also present. IMPRESSION: 1. Difficult to exclude trace pneumomediastinum. This may have been present in retrospect as well. 2. Small effusions with patchy right mid and lower lung opacities, slightly increased. Possible seque la of asymmetric pulmonary edema. Pneumonia is also possible. Follow-up recommended.
[2018-10-03 07:47] LABS: Basophils % (A) 0 %; Eosinophils # (A) 0.1 k/uL (0-0.7); Eosinophils % (A) 2 %; HCT 42.6 % (39.0-53.0); HGB 13.7 gm/dL (13.0-17.5); Lymphocytes # (A) 0.7 k/uL (1.0-4.8); Lymphocytes % (A) 12 %; MCH 32.7 pg (25.0-35.0); MCHC 32.1 g/dL (31.0-37.0); MCV 101.8 fL (80.0-100.0); Macrocytosis Slight; Mean Platelet Volume 7.1; Monocytes # (A) 0.4 k/uL (0-1.0); Monocytes % (A) 8 %; Neutrophils # (A) 4.1 k/uL (1.3-7.7); Neutrophils % (A) 75 %; Platelet Count 214 k/uL (150-450); RBC 4.18 m/uL (4.30-5.90); RDW 13.9 % (11.5-15.5); WBC 5.5 k/uL (3.8-10.6)
[2018-10-03] MEDS: SODIUM CHLORIDE 0.9% 1,000 ML IV SCH ×2 (08:00→08:20)
[2018-10-03 08:18] LABS: Anion Gap 13 mmol/L; Blood Urea Nitrogen 13 mg/dL (9-20); Calcium 9.3 mg/dL (8.4-10.2); Carbon Dioxide 22 mmol/L (22-30); Chloride 105 mmol/L (98-107); Glucose 82 mg/dL (74-99); Potassium 3.5 mmol/L (3.5-5.1); Sodium 140 mmol/L (137-145)
--- NOTE | 2018-10-03 08:53 | ECHOF ---
Referral Reason:Heart Failure MEASUREMENTS -------- HEIGHT: 182.9 cm WEIGHT: 88.5 kg BP: RVIDd: 3.1 cm (< 3.3) IVSd: 1.0 cm (0.6 - 1.1) LVIDd: 5.6 cm (3.9 - 5.3) LVPWd: 1.2 cm (0.6 - 1.1) IVSs: 1.6 cm LVIDs: 4.1 cm LVPWs: 1.8 cm Ao Diam: 3.1 cm (2.0 - 3.7) AV Cusp: 1.6 cm (1.5 - 2.6) LA Diam: 5.2 cm (2.7 - 3.8) MV EXCURSION: 14.447 mm (> 18.000) MV EF SLOPE: 127 mm/s (70 - 150) MV E Vitor: 1.21 m/s MV DecT: 184 ms MV A Vitor: 0.48 m/s MV E/A Ratio: 2.53 RAP: 5.00 mmHg RVSP: 14.28 mmHg FINDINGS -------- Undetermined rhythm. This was a techncally difficult study with suboptimal views, , Lumason utilized for enhancement of im ages. The left ventricular size is normal. Left ventricular wall thickness is normal. Overall left vent ricular systolic function is mildly impaired with, an EF between 45 - 50 %. The right ventricle is normal in size. Paradoxical motion of the right ventricular septum is consis tent with left bundle branch block. The left atrial size is normal. The right atrial size is normal. 5.0mg OF Lumason UTLIZED: 2 OR MORE WALL SEGMENTS NOT VISUALIZED. Interatrial and interventricular septum intact. There is mild aortic valve sclerosis. There is no evidence of aortic regurgitation. The mitral valve leaflets are mildly thickened. Mild mitral annular calcification present. Mild m itral regurgitation is present. Mild tricuspid regurgitation present. There is no evidence of pulmonary hypertension. The right v entricular systolic pressure, as measured by Doppler, is 14.28mmHg. The pulmonic valve was not well visualized. The aortic root size is normal. There is no pericardial effusion. CONCLUSIONS -------- 1. This was a techncally difficult study with suboptimal views, , Lumason utilized for enhancement of images. 2. The left ventricular size is normal. 3. Left ventricular wall thickness is normal. 4. The right ventricle is normal in size. 5. Paradoxical motion of the right ventricular septum is consistent with left bundle branch block. 6. The left atrial size is normal. 7. The right atrial size is normal. 8. 5.0mg OF Lumason UTLIZED: 2 OR MORE WALL SEGMENTS NOT VISUALIZED. 9. Interatrial and interventricular septum intact. 10. There is mild aortic valve sclerosis. 11. The mitral valve leaflets are mildly thickened. 12. Mild mitral annular calcification present. 13. Mild mitral regurgitation is present. 14. Mild tricuspid regurgitation present. 15. There is no evidence of pulmonary hypertension. 16. The right ventricular systolic pressure, as measured by Doppler, is 14.28mmHg. 17. The pulmonic valve was not well visualized. 18. The aortic root size is normal. 19. There is no pericardial effusion. CATASTROPHE CLAIMS SUPERVISOR: Jo Naranjo RDCS
[2018-10-03] MEDS: HEPARIN SODIUM,PORCINE 5,000 UNIT/ML 1 ML VIAL SQ SCH (09:18)
[2018-10-03] MEDS: FAMOTIDINE 20 MG TAB PO SCH (09:21)
[2018-10-03] MEDS: ALLOPURINOL 300 MG TAB PO SCH (09:21)
[2018-10-03] MEDS: FUROSEMIDE 20 MG TAB PO SCH ×2 (09:21→15:30)
[2018-10-03] MEDS: HYDROCHLOROTHIAZIDE 25 MG TAB PO SCH (09:22)
[2018-10-03] MEDS: GABAPENTIN 300 MG CAP PO SCH ×2 (09:22→19:35)
[2018-10-03] MEDS: POTASSIUM CHLORIDE ER 20 MEQ TAB.ER PO SCH ×2 (09:22→10:07)
[2018-10-03] MEDS: METOPROLOL TARTRATE 50 MG TAB PO SCH ×2 (09:23→19:35)
[2018-10-03] MEDS: PRAVASTATIN SODIUM 40 MG TAB PO SCH (09:23)
[2018-10-03] MEDS: amLODIPine 5 MG TAB PO SCH ×2 (09:23→19:34)
--- NOTE | 2018-10-03 09:42 | P.HPIM ---
History of Present Illness H&P Date: 10/03/18 This is a pleasant 73-year-old gentleman with a history of hypertension, hyperlipidemia, peripheral arterial disease with bypass to bilateral legs who presented to the hospital with symptoms of shortness of breath that was associated with fatigue and tiredness. Patient also complained of bilateral lower extremity edema. Patient was found to be in second-degree heart block, he underwent implantation of a permanent pacemaker yesterday by Dr. Teresa Cruz. At this time the patient is sitting up in a chair with family at the bedside. Patient denies any shortness of breath chest pain or numbness and tingling to the left arm. Patient denies any chest pain or jaw pain. Patient has no dizziness or lightheadedness he has been ambulatory in his room without any difficulties. His device was interrogated this morning and functioning appropriately. This morning chest x-ray did reveal possible trace pneumonmediastinum, small effusions with patchy right mid and lower lobe opacity slightly increased. Review of Systems Review Of Systems: Constitutional: No fever, no chills, no night sweats. No weight change. No weakness, fatigue or lethargy. No daytime sleepiness. EENT: No headache. No blurred vision or double vision, no loss of vision. No loss of Hearing, no ringing in the ears, no dizziness. No nasal drainage or congestion. No epistaxis. No sore throat. Lungs: No shortness of breath, cough, no sputum production. No wheezing. Cardiovascular: No chest pain, no lower extremity edema. No palpitations. No paroxysmal nocturnal dyspnea. No orthopnea. No lightheadedness or dizziness. No syncopal episodes. Abdominal: no abdominal discomfort. No nausea, vomiting. no diarrhea. No constipation. No bloody or tarry stools. improved loss of appetite. Genitourinary: No dysuria, increased frequency, urgency. No urinary retention. Musculoskeletal: No myalgias. No muscle weakness, no gait dysfunction, no frequent falls. No back pain. No neck pain. Integumentary: No wounds, no lesions. No rash or pruritus. No unusual bruising. No change in hair or nails. Neurologic: No aphasia. No facial droop. No change in mentation. No head injury. No headache. No paralysis. No paresthesia. Psychiatric: No depression. No anxiety. No mood swings. Endocrine: No abnormal blood sugars. No weight change. No excessive sweating or thirst. Past Medical History Past Medical History: Hyperlipidemia, Hypertension, Osteoarthritis (OA), Vascular Disorder Additional Past Medical History / Comment(s): HEPATITIS UNKNOWN TYPE YEARS AGO History of Any Multi-Drug Resistant Organisms: None Reported Past Surgical History: Appendectomy, Back Surgery Additional Past Surgical History / Comment(s): LEFT LEG- BYPASS, RIGHT LEG BYPASS , BOWEL SURGERY Past Anesthesia/Blood Transfusion Reactions: No Reported Reaction Past Psychological History: No Psychological Hx Reported Smoking Status: Former smoker Past Alcohol Use History: Daily Additional Past Alcohol Use History / Comment(s): Patient was smoker 2 packs per day since he was 11 years old and quit at age 38. He states he drinks 3-6 beers per day. He lives at home with his . Past Drug Use History: None Reported - Past Family History Mother Family Medical History: No Reported History (mother at age of 88 from septic shock.) Additional Family Medical History / Comment(s): Mother at age 88 from septic shock. Father Family Medical History: Coronary Artery Disease (CAD) (father at age of 94 he had history of CABG with aortic aneurysm.) Additional Family Medical History / Comment(s): Father at age 94 and he had history of CABG and aortic aneurysm. Brother(s) Family Medical History: No Reported History (patient has one brother no major medical problem.) Additional Family Medical History / Comment(s): Patient has 1 brother with no major medical problems. Sister(s) Family Medical History: No Reported History (patient has one sister problems) Additional Family Medical History / Comment(s): Patient has 1 sister with no ma esau medical problems. Son(s) Family Medical History: No Reported History (patient has 2 sons no major medical problems.) Additional Family Medical History / Comment(s): Patient has 2 sons with no major medical problems. Daughter(s) Family Medical History: No Reported History (patient has one daughter no major medical problems.) Additional Family Medical History / Comment(s): Patient has one daughter with no major medical problems. Medications and Allergies Home Medications Medication Instructions Recorded Confirmed Type Allopurinol [Zyloprim] 300 mg PO DAILY 02/27/18 10/02/18 History Gabapentin [Neurontin] 300 mg PO BID 02/27/18 10/02/18 History Hydrochlorothiazide 25 mg PO DAILY 02/27/18 10/02/18 History Pravastatin Sodium [Pravachol] 40 mg PO DAILY 02/27/18 10/02/18 History amLODIPine BESYLATE [Norvasc] 10 mg PO HS 02/27/18 10/02/18 History Ascorbic Acid [Vitamin C] 500 mg PO DAILY 10/02/18 10/02/18 History Cholecalciferol [Vitamin D3] 1,000 unit PO DAILY 10/02/18 10/02/18 History Multivitamins, Thera [Multivitamin 1 tab PO DAILY 10/02/18 10/02/18 History (formulary)] Allergies Allergy/AdvReac Type Severity Reaction Status Date / Time lisinopril Allergy Swelling Verified 10/02/18 09:53 OF FACE Physical Exam Vitals: Vital Signs Temp Pulse Pulse Resp BP BP Pulse Ox 10/03/18 08:29 95 10/03/18 04:04 83 20 152/68 93 L 10/03/18 00:32 98.0 F 70 20 160/71 94 L 10/02/18 22:30 95 20 169/73 95 10/02/18 20:09 97.7 F 69 20 154/68 94 L 10/02/18 18:47 170/77 10/02/18 18:07 90 162/75 10/02/18 17:37 71 20 170/73 95 10/02/18 17:07 97.4 F L 70 20 182/82 10/02/18 12:20 97.9 F 41 L 18 181/68 95 10/02/18 11:05 97.6 F 43 L 18 177/65 93 L 10/02/18 10:10 16 Intake and Output 10/02/18 10/03/18 10/03/18 22:59 06:59 14:59 Intake Total 240 Output Total 2175 350 Balance -1934 Intake: Oral 240 Output: Urine 2175 350 Other: # Voids 1 Weight 82.6 kg General Appearance: Alert, cooperative, no distress, appears stated age. Neck HEENT: Supple, no lymphadenopathy, no thyroid enlargement, no carotid bruits. Lungs: Clear to auscultation without crackles or wheezes no rhonchi, no deformity. Chest Wall: Steri-Strips in place to anterior chest wall Chest wall normal expansion with deep inspiration no tenderness and no deformity was found on exam, no costochondral pain or discomfort. Heart: Regular rate and rhythm, S1, S2 normal, no murmur, rub or gallop. Back: Symmetric, no curvature, ROM normal, no CVA tenderness. Abdomen: Soft, non-tender, no rebound or rigidity, no hepatosplenomegaly. Extremities: Sling in place to left upper extremity Extremities normal, atraumatic, no cyanosis or edema. Pulses: 2+ and symmetric. Skin: Skin color, texture, tugor normal, no rashes or lesions. Neurologic: Alert oriented x3 cranial nerves II through XII intact, no motor deficit, no abnormal balance or gait Results CBC & Chem 7: 10/03/18 07:06 10/03/18 07:06 Labs: Abnormal Lab Results - Last 24 Hours (Table) 10/02/18 10/02/18 10/02/18 Range/Units 10:05 10:05 17:20 RBC 4.21 L (4.30-5.90) m/uL MCV (80.0-100.0) fL Lymphocytes # 0.7 L (1.0-4.8) k/uL Sodium 136 L (137-145) mmol/L Carbon Dioxide 19 L (22-30) mmol/L Creatinine (0.66-1.25) mg/dL ALT 81 H (21-72) U/L Alkaline Phosphatase 162 H (38-126) U/L Troponin I 0.084 H* (0.000-0.034) ng/mL 10/02/18 10/03/18 10/03/18 Range/Units 22:12 07:06 07:06 RBC 4.18 L (4.30-5.90) m/uL MCV 101.8 H (80.0-100.0) fL Lymphocytes # 0.7 L (1.0-4.8) k/uL Sodium (137-145) mmol/L Carbon Dioxide (22-30) mmol/L Creatinine 0.62 L (0.66-1.25) mg/dL ALT (21-72) U/L Alkaline Phosphatase (38-126) U/L Troponin I 0.122 H* (0.000-0.034) ng/mL Thrombosis Risk Factor Assmnt - Choose All That Apply Each Factor Represents 1 point: Heart failure (<1month), Medical pt on bed rest, Varicose veins Each Risk Factor Represents 3 Points: Age 75 years or older Other congenital or acquired thrombophilia - If yes, enter type in comment: No Thrombosis Risk Factor Assessment Total Risk Factor Score: 6 Thrombosis Risk Factor Assessment Level: High Risk Assessment and Plan Plan: 1. 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 Diastolic heart failure acute on chronic, secondary to bradycardia: Lasix 20 mg twice a day 3. Hypertension: Norvasc 5 mg twice a day, hydrochlorothiazide 25 mg daily 4. Abnormal troponin secondary to post implementation of dual-chamber permanent pacemaker: Repeat serial troponins and EKG. 5. Pneumomediastinum secondary to postoperative limitation of permanent pacemaker: Repeat chest x-ray in the morning 6. Hyperlipidemia: Pravastatin 40 mg by mouth daily 7. Peripheral arterial disease: Continue pravastatin milligrams daily 8. Osteoarthritis: Gabapentin 300 mg twice a day 9. History of gout, continue allopurinol 300 mg by mouth daily 9. DVT prophylaxis: Ambulation 10. GI prophylaxis: Pepcid 25 mg daily Discharge plan: Minimum of 2 hospital stays. Home with self-care Impression and plan of care have been directed as dictated by the signing physician. Rola Vickers nurse practitioner acting as scribe for signing physician.
--- NOTE | 2018-10-03 09:52 | PN ---
PROGRESS NOTE Mr. Somers presented to the hospital yesterday with complaints of abdominal discomfort, weakness, lethargy, lightheadedness, near syncope. He was found to be in a 2:1 block with a left bundle. He underwent a permanent pacemaker yesterday. During the temporary pacemaker placement prior to the permanent pacemaker, he went into atrial flutter. During the procedure, I accessed the subclavian artery with micropuncture needle, which was very pulsatile before actually securing access into the axillary vein. The procedure was performed uneventfully. This morning the chest x-ray revealed a trace pneumomediastinum. On reviewing the x-ray, this does not seem significant. The lead positions are good. Patient is now in a sinus rhythm with atrial sensed and ventricular paced rhythm and pacemaker seems to be functioning very well. Chest x-ray findings suggested trace pneumomediastinum with mild congestion. This morning he is asymptomatic. The pacemaker site is clean and dry without any hematoma. Device interrogation revealed good numbers for both leads. His blood pressure is 138/70, pulse rate is about 84 per minute with atrial sensed and ventricular paced beating. S1, S2 heard normally, short systolic murmur noted. Lungs reveal fine rales over both bases. Abdomen is soft. Pacemaker site is clean and dry. Rest of physical examination is unchanged. I am recommending that we start him on Lopressor 50 mg b.i.d., decrease the amlodipine to 5 mg b.i.d., supplement potassium 20 mEq 2 doses. I will obtain another repeat chest x-ray tomorrow. We will await the interrogation of the device that will happen today. Since patient's atrial fib occurred only during the catheter manipulation with a temporary pacemaker catheter, I will discontinue Eliquis altogether. However, if he has any atrial fib while he is in the hospital, we shall consider re-introducing anticoagulation. Otherwise, I will discontinue aspirin and Eliquis, leave him on subcutaneous heparin, increase activity and based on clinical course we will make further recommendations. A repeat chest x- ray is being ordered for tomorrow. I discussed my thoughts in detail with the patient and advised him that we will keep him for 1 more day longer. MMODL / IJN: [id number] / MTDD
[2018-10-03] MEDS ORDERED: ASPIRIN 325 MG TAB PO SCH (10:59)
--- NOTE | 2018-10-03 11:23 | P.PN ---
Subjective Progress Note Date: 10/03/18 This is a 73-year-old gentleman with history of hypertension, hyperlipidemia, who presented to the hospital with symptoms of shortness of breath with associated fatigue and tiredness, bilateral lower extremity edema. He was found to be in second-degree heart block, underwent implantation of a pe rmanent pacemaker yesterday by Dr. Teresa Cruz. His device was interrogated this morning and is functioning appropriately. Chest x-ray from this morning difficult to exclude trace pneumomediastinum. Small effusions with patchy right mid and lower lobe obesity slightly increased. White blood cell count 5.5, hemoglobin 13.7, platelet count 214. Sodium 140, potassium 3.5, BUN 13 and creatinine 0.6. Troponins 0.020, 0.084, 0.122. Patient was seen and examined this morning, he feels well, no complaints, no dizziness or lightheadedness and is breathing overall is stable. Objective - Vital Signs Vital signs: Vital Signs Temp 97.5 F L 10/03/18 08:15 Pulse 84 10/03/18 08:15 Resp 20 10/03/18 08:15 BP 135/57 10/03/18 08:15 Pulse Ox 95 10/03/18 08:29 Intake & Output 10/02/18 10/03/18 10/03/18 18:59 06:59 18:59 Intake Total 790 400 Output Total 1225 1300 Balance -435 -1300 400 Weight 88.451 kg 82.6 kg Intake: IV 550 Intake, IV Titration 400 Amount Sodium Chloride 0.9% 1, 400 000 ml @ 50 mls/hr IV . Q20H [facility] Rx#:[id number] Oral 240 Output: Urine 1225 1300 Other: # Voids 1 - Exam PHYSICAL EXAMINATION: GENERAL: 73-year-old gentleman in no acute distress at the time of my examination HEENT: Head is atraumatic, normocephalic. Pupils equal, round. Sclera anicteri c. Conjunctiva are clear. Mucous membranes of the mouth are moist. Neck is supple. There is no elevated jugular venous pressure. No carotid bruit is heard. HEART EXAMINATION: Heart S1, S2 normal. No murmur or gallop heard. CHEST EXAMINATION:[ Lungs are clear to with mild diminished air entry to the bases Site of pacemaker implantation, dressing is dry and intact. ABDOMEN: Soft, nontender. Bowel sounds are heard. No organomegaly noted. EXTREMITIES: 2+ peripheral pulses with evidence of peripheral edema and no calf tenderness noted. NEUROLOGIC patient is awake, alert and oriented 3 . . - Labs CBC & Chem 7: 10/03/18 07:06 10/03/18 07:06 Labs: Abnormal Lab Results - Last 24 Hours (Table) 10/02/18 10/02/18 10/03/18 Range/Units 17:20 22:12 07:06 RBC 4.18 L (4.30-5.90) m/uL MCV 101.8 H (80.0-100.0) fL Lymphocytes # 0.7 L (1.0-4.8) k/uL Creatinine (0.66-1.25) mg/dL Troponin I 0.084 H* 0.122 H* (0.000-0.034) ng/mL 10/03/18 Range/Units 07:06 RBC (4.30-5.90) m/uL MCV (80.0-100.0) fL Lymphocytes # (1.0-4.8) k/uL Creatinine 0.62 L (0.66-1.25) mg/dL Troponin I (0.000-0.034) ng/mL Assessment and Plan Plan: Assessment and plan #1 symptomatic second-degree heart block status post implantation of permanent pacemaker #2 diastolic heart failure acute on chronic, secondary to bradycardia #3 uncontrolled hypertension #4 abnormality in troponin, 0.020, 0.084, 0.122 Plan From cardiology's perspective, we will continue to observe the patient her 24 hours and plan for possible discharge home in the morning tomorrow if stable. DNP note has been reviewed, I agree with a documented findings and plan of care. Patient was seen and examined.
[2018-10-03 11:53] VITALS: BMI 24.7
[2018-10-03 13:44] VITALS: RESP 18
[2018-10-03] MEDS ORDERED: APIXABAN 5 MG TAB PO SCH (21:00)
[2018-10-04 06:49] LABS: Basophils % (A) 0 %; Eosinophils # (A) 0.1 k/uL (0-0.7); Eosinophils % (A) 1 %; HCT 41.3 % (39.0-53.0); HGB 13.6 gm/dL (13.0-17.5); Lymphocytes # (A) 0.8 k/uL (1.0-4.8); Lymphocytes % (A) 11 %; MCH 33.7 pg (25.0-35.0); MCV 102.2 fL (80.0-100.0); Macrocytosis Slight; Mean Platelet Volume 6.9; Monocytes # (A) 0.7 k/uL (0-1.0); Monocytes % (A) 10 %; Neutrophils # (A) 4.9 k/uL (1.3-7.7); Neutrophils % (A) 73 %; Platelet Count 208 k/uL (150-450); RBC 4.04 m/uL (4.30-5.90); RDW 14.1 % (11.5-15.5); WBC 6.7 k/uL (3.8-10.6)
[2018-10-04 07:00] LABS: Anion Gap 8 mmol/L; Blood Urea Nitrogen 15 mg/dL (9-20); Calcium 9.5 mg/dL (8.4-10.2); Carbon Dioxide 25 mmol/L (22-30); Chloride 104 mmol/L (98-107); Glucose 94 mg/dL (74-99); Potassium 3.8 mmol/L (3.5-5.1); Sodium 137 mmol/L (137-145)
--- NOTE | 2018-10-04 07:56 | XR ---
EXAMINATION TYPE: XR chest 2V DATE OF EXAM: 10/04/2018 COMPARISON: 10/03/2018 HISTORY: Shortness of breath TECHNIQUE: Frontal and lateral views of the chest are obtained. FINDINGS: Scattered senescent parenchymal changes noted. Hyperinflation compatible with COPD. Patchy infiltrate right medial lung base remain stable. Suspect small effusions. Heart size is stable. Mediastinal structures are stable and grossly unremarkable. No evidence for hilar prominence. Degenerative changes dorsal spine. IMPRESSION: 1. Patchy infiltrate right medial lung base remain stable. Suspect small effusions.
[2018-10-04] MEDS: FAMOTIDINE 20 MG TAB PO SCH (09:20)
[2018-10-04] MEDS: PRAVASTATIN SODIUM 40 MG TAB PO SCH (09:20)
[2018-10-04] MEDS: HYDROCHLOROTHIAZIDE 25 MG TAB PO SCH (09:20)
[2018-10-04] MEDS: GABAPENTIN 300 MG CAP PO SCH (09:20)
[2018-10-04] MEDS: ALLOPURINOL 300 MG TAB PO SCH (09:20)
[2018-10-04] MEDS: FUROSEMIDE 20 MG TAB PO SCH (09:20)
[2018-10-04] MEDS: amLODIPine 5 MG TAB PO SCH (09:20)
[2018-10-04] MEDS: METOPROLOL TARTRATE 50 MG TAB PO SCH (09:20)
[2018-10-04] MEDS: ACETAMINOPHEN TAB 325 MG TAB PO PRN (10:28)
--- NOTE | 2018-10-04 10:48 | P.PN ---
Subjective Progress Note Date: 10/04/18 This is a 73-year-old gentleman with history of hypertension, hyperlipidemia, who presented to the hospital with symptoms of shortness of breath with associated fatigue and tiredness, bilateral lower extremity edema. He was found to be in second-degree heart block, underwent implantation of a pe rmanent pacemaker yesterday by Dr. Teresa Cruz. His device was interrogated this morning and is functioning appropriately. Chest x-ray from this morning difficult to exclude trace pneumomediastinum. Small effusions with patchy right mid and lower lobe obesity slightly increased. White blood cell count 5.5, hemoglobin 13.7, platelet count 214. Sodium 140, potassium 3.5, BUN 13 and creatinine 0.6. Troponins 0.020, 0.084, 0.122. Patient was seen and examined this morning, he feels well, no complaints, no dizziness or lightheadedness and is breathing overall is stable. 10/04/2018 Patient seen and examined this morning, feels well, ambulating without any difficulty. Repeat chest x-ray this morning showed patchy infiltrate in the right medial lung which remained stable. Blood pressure 136/60 with a heart rate in the 70s. Objective - Vital Signs Vital signs: Vital Signs Temp 98.0 F 10/04/18 08:00 Pulse 75 10/04/18 08:00 Resp 18 10/04/18 08:00 BP 136/65 10/04/18 08:00 Pulse Ox 97 10/04/18 04:22 Intake & Output 10/03/18 10/04/18 10/04/18 18:59 06:59 18:59 Intake Total 810 240 Output Total 650 625 Balance 160 -625 240 Weight 82.6 kg 81.5 kg Intake: Intake, IV Titration 400 Amount Sodium Chloride 0.9% 1, 400 000 ml @ 50 mls/hr IV . Q20H [facility] Rx#:[id number] Oral 410 240 Output: Urine 650 625 Other: # Voids 1 1 # Bowel Movements 0 - Exam PHYSICAL EXAMINATION: GENERAL: 73-year-old gentleman in no acute distress at the time of my examination HEENT: Head is atraumatic, normocephalic. Pupils equal, round. Sclera anicteric. Conjunctiva are clear. Mucous membranes of the mouth are moist. Neck is supple. There is no elevated jugular venous pressure. No carotid bruit is heard. HEART EXAMINATION: Heart S1, S2 normal. No murmur or gallop heard. CHEST EXAMINATION:[ Lungs are clear to with mild diminished air entry to the bases Site of pacemaker implantation, dressing is dry and intact. ABDOMEN: Soft, nontender. Bowel sounds are heard. No organomegaly noted. EXTREMITIES: 2+ peripheral pulses with evidence of peripheral edema and no calf tenderness noted. NEUROLOGIC patient is awake, alert and oriented 3 . . - Labs CBC & Chem 7: 10/04/18 06:29 10/04/18 06:29 Labs: Abnormal Lab Results - Last 24 Hours (Table) 10/03/18 10/03/18 10/03/18 Range/Units 07:06 11:30 17:08 RBC (4.30-5.90) m/uL MCV (80.0-100.0) fL Lymphocytes # (1.0-4.8) k/uL Creatinine (0.66-1.25) mg/dL Troponin I 0.065 H* 0.054 H* 0.053 H* (0.000-0.034) ng/mL 10/04/18 10/04/18 Range/Units 06:29 06:29 RBC 4.04 L (4.30-5.90) m/uL MCV 102.2 H (80.0-100.0) fL Lymphocytes # 0.8 L (1.0-4.8) k/uL Creatinine 0.59 L (0.66-1.25) mg/dL Troponin I (0.000-0.034) ng/mL Assessment and Plan Plan: Assessment and plan #1 symptomatic second-degree heart block status post implantation of permanent pacemaker #2 diastolic heart failure acute on chronic, secondary to bradycardia #3 uncontrolled hypertension #4 abnormality in troponin, 0.020, 0.084, 0.122 Plan From cardiology's perspective, patient may be able to be discharged home today. We'll make an appointment with Dr. Mcpherson in the device clinic in one week. Patient has been given post pacemaker instructions. DNP note has been reviewed, I agree with a documented findings and plan of care. Patient was seen and examined.
[2018-10-04 12:14] VITALS: BP 131/60; PULSE 68; TEMP 97.4
--- NOTE | 2018-10-04 15:49 | P.DS ---
Providers Date of admission: 10/02/18 10:55 Attending physician: Angel Miles Consults: 10/02/18 10:55 Consult Physician Stat Consulting Provider: Emile Mcpherson Consult Reason/Comments: Heart block, CHF Do you want consulting provider notified?: Already Contacted Primary care physician: Terry Sloan [facility] Course: This is a pleasant 73-year-old gentleman with a history of hypertension, hyperlipidemia, peripheral arterial disease with bypass to bilateral legs who presented to the hospital with symptoms of shortness of breath that was associated with fatigue and tiredness. Patient also complained of bilateral lower extremity edema. Patient was found to be in second-degree heart block, he underwent implantation of a permanent pacemaker yesterday by Dr. Teresa Cruz. At this time the patient is sitting up in a chair with family at the bedside. Patient denies any shortness of breath chest pain or numbness and tingling to the left arm. Patient denies any chest pain or jaw pain. Patient has no dizziness or lightheadedness he has been ambulatory in his room without any difficulties. His device was interrogated this morning and functioning appropriately. This morning chest x-ray did reveal possible trace pneumonmediastinum, small effusions with patchy right mid and lower lobe opacity slightly increased. 10/04 patient examined bedside. He denies any shortness of breath, chest pain, nausea vomiting, dizziness lightheadedness and balance abnormality, change in bowel habits, fever or chills, headaches or loss of consciousness. X-ray repeated today denies any pneumomediastinum or pneumothorax. Hemoglobin stable at 13.6. On examination pupils are equal and reactive to light, no JVP, no lymphadenopathy S1 and S2 present heart rate is regular rate and rhythm. Chest is clear to auscultate with no crackles or refills are decreased aeration. Abdomen is nontender to palpate and bowel sounds are present no organomegaly no gait instability no numbness or tingling in lower extremities. Patient is stable to be discharged Discharge diagnoses 1. 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 Diastolic heart failure acute on chronic, secondary to bradycardia: 3. Hypertension 4. Abnormal troponin 5. Pneumomediastinum secondary to postoperativeplacement of permanent pacemaker 6. Hyperlipidemia 7. Peripheral arterial disease 8. Osteoarthritis 9. History of gout Disposition home with self-care follow up with Dr. Sloan and complaints Plan - Discharge Summary Discharge Rx Participant: Yes New Discharge Prescriptions: New Furosemide [Lasix] 20 mg PO BID@0900,1600 #60 tab Metoprolol Tartrate [Lopressor] 50 mg PO BID #60 tab amLODIPine [Norvasc] 5 mg PO BID #60 tab Continue Pravastatin Sodium [Pravachol] 40 mg PO DAILY Allopurinol [Zyloprim] 300 mg PO DAILY Gabapentin [Neurontin] 300 mg PO BID amLODIPine BESYLATE [Norvasc] 10 mg PO HS Hydrochlorothiazide 25 mg PO DAILY Multivitamins, Thera [Multivitamin (formulary)] 1 tab PO DAILY Ascorbic Acid [Vitamin C] 500 mg PO DAILY Cholecalciferol [Vitamin D3] 1,000 unit PO DAILY Discharge Medication List Allopurinol [Zyloprim] 300 mg PO DAILY 02/27/18 [History] Gabapentin [Neurontin] 300 mg PO BID 02/27/18 [History] Hydrochlorothiazide 25 mg PO DAILY 02/27/18 [History] Pravastatin Sodium [Pravachol] 40 mg PO DAILY 02/27/18 [History] amLODIPine BESYLATE [Norvasc] 10 mg PO HS 02/27/18 [History] Ascorbic Acid [Vitamin C] 500 mg PO DAILY 10/02/18 [History] Cholecalciferol [Vitamin D3] 1,000 unit PO DAILY 10/02/18 [History] Multivitamins, Thera [Multivitamin (formulary)] 1 tab PO DAILY 10/02/18 [History] Furosemide [Lasix] 20 mg PO BID@0900,1600 #60 tab 10/04/18 [Rx] Metoprolol Tartrate [Lopressor] 50 mg PO BID #60 tab 10/04/18 [Rx] amLODIPine [Norvasc] 5 mg PO BID #60 tab 10/04/18 [Rx] Follow up Appointment(s)/Referral(s): Terry Sloan MD [Primary Care Provider] - 1-2 days Emile Mcpherson MD [STAFF PHYSICIAN] - 1 Week Patient Instructions/Handouts: Heart Failure (DC), Bradycardia (DC), Pacemaker (DC) Discharge Disposition: HOME SELF-CARE
--- NOTE | 2018-10-07 09:23 | CDI ---
Documentation Clarification Form Date: 10/07/2018 From: Heather Jimenez Phone: If questions call Dede Jeter @ [phone], Hours-8:30 am & 5 pm Bhaarth Camara Admit Date: 10/02/2018 10:55:00 AM Patient Name: Abiel Somers Visit Number: [id number] Discharge Date: 10/04/2018 3:16:00 PM ATTENTION: The Clinical Documentation Specialists (CDI) and [facility] Coding Staff appreciate your assistance in clarifying documentation. Please respond to the clarification below the line at the bottom and electronically sign. The CDI & [facility] Coding staff will review the response and follow-up if needed. Please note: Queries are made part of the Legal Health Record. If you have any questions, please contact the author of this message via ITS. Dr. Jose Cruz Pneumomediastinum secondary to postoperative pacemaker implantation is documented in the H&P, 10/03 & 10/04 PNs & DS. Patients Admitting Diagnosis: second degree AV block Post-Operative Diagnosis: same Procedure performed: Temporary transveous pacemaker, Dual pacemaker implantation Treatment: CXR In order to accurately reflect this patients severity of illness, please clarify if the post-operative pneumomediastinum is: An expected post-procedural or post-surgical condition An unexpected post-procedural or post-surgical condition related to surgical procedure (a complication of care) An unexpected post-procedural or post-surgical condition, related to the patient's underlying medical comorbidities Other, please specify Unable to determine An unexpected post-procedural or post-surgical condition, related to the patient's underlying medical comorbidities MTDD
--- NOTE | 2018-10-07 09:39 | CDI ---
Documentation Clarification Form Date: 10/07/18 From: Heather Jimenez Phone: If questions call Dede Jeter @ [phone], Hours-8:30 am & 5 pm Bharath Camara Admit Date: 10/02/2018 10:55:00 AM Patient Name: Abiel Somers Visit Number: [id number] Discharge Date: 10/04/2018 3:16:00 PM ATTENTION: The Clinical Documentation Specialists (CDI) and [facility] Coding Staff appreciate your assistance in clarifying documentation. Please respond to the clarification below the line at the bottom and electronically sign. The CDI & [facility] Coding staff will review the response and follow-up if needed. Please note: Queries are made part of the Legal Health Record. If you have any questions, please contact the author of this message via ITS. Dr. Jose Cruz Atrial fibrillation and atrial flutter in the 10/03 PN and 10/02 cath. Patients Admitting Diagnosis: second degree AV block Post-Operative Diagnosis: same Procedure performed: temporary pacemaker and dual pacemaker implantation Treatment: Eliquis started and then discontinued 3 Questions 1) In order to accurately reflect this patients severity of illness, please clarify if the post-operative diagnosis is: An expected post-procedural or post-surgical condition An unexpected post-procedural or post-surgical condition related to the surgical procedure (a complication of care) An unexpected post-procedural or post-surgical condition, related to the patients underlying medical comorbidities Other, please specify Unable to determine 2) Type of atrial fibrillation Persistent Paroxysmal Chronic Unable to determine 3) Type of atrial flutter Typical Atypical Type I Type II Unable to determine Unable to determine type of Afib, Typical A flutter MTDD
== END 2018-10-04 15:16 | disposition home or self-care (01) | DRG 242 ==
LOC: EC 09:33 → 3SCARD 10:55
PROVIDERS: ADMIT Internal Medicine; ATTEND Internal Medicine
PROC: 02HK3JZ Insertion of Pacemaker Lead into Right Ventricle, Percutaneous Approach (ICD-10-PCS; 2018-10-02)
PROC: 02H63JZ Insertion of Pacemaker Lead into Right Atrium, Percutaneous Approach (ICD-10-PCS; 2018-10-02)
PROC: 0JH606Z Insertion of Pacemaker, Dual Chamber into Chest Subcutaneous Tissue and Fascia, Open Approach (ICD-10-PCS; principal; 2018-10-02 13:05)
PROC: 4B02XSZ Measurement of Cardiac Pacemaker, External Approach (ICD-10-PCS; 2018-10-03)
DX: I44.1 Atrioventricular block, second degree (principal); I50.33 Acute on chronic diastolic (congestive) heart failure; J98.2 Interstitial emphysema; I08.3 Combined rheumatic disorders of mitral, aortic and tricuspid valves; I44.7 Left bundle-branch block, unspecified; I11.0 Hypertensive heart disease with heart failure; I48.3 Typical atrial flutter; I48.91 Unspecified atrial fibrillation; I73.9 Peripheral vascular disease, unspecified; E78.5 Hyperlipidemia, unspecified; M10.9 Gout, unspecified; R77.8 Other specified abnormalities of plasma proteins; M19.90 Unspecified osteoarthritis, unspecified site; Z79.899 Other long term (current) drug therapy; Z87.891 Personal history of nicotine dependence; Z95.828 Presence of other vascular implants and grafts; Z90.49 Acquired absence of other specified parts of digestive tract; Z86.19 Personal history of other infectious and parasitic diseases; Z88.8 Allergy status to other drugs, medicaments and biological substances; Z82.49 Family history of ischemic heart disease and other diseases of the circulatory system; Z83.1 Family history of other infectious and parasitic diseases
CPT/HCPCS: 33208; 36415; 71045; 71046; 80048; 80053; 83880; 84443; 84484; 85025; 85610; 85730; 93005; 93306; 94760; 96374; 99291

== ENCOUNTER → 2020-01-28 | Outpatient (CLI) | payer MEDICARE ==
[2020-01-28 08:36] LABS: HCT 47.4 % (39.0-53.0); MCH 33.8 pg (25.0-35.0); MCHC 31.7 g/dL (31.0-37.0); MCV 106.6 fL (80.0-100.0); Macrocytosis Moderate; Mean Platelet Volume 7.4; Platelet Count 195 k/uL (150-450); RBC 4.45 m/uL (4.30-5.90); RDW 14.5 % (11.5-15.5); WBC 4.5 k/uL (3.8-10.6)
[2020-01-28 08:50] LABS: African American GFR (CKD) >90 (>60 ml/min/1.73 sqM); Anion Gap 6 mmol/L; Blood Urea Nitrogen 18 mg/dL (9-20); Carbon Dioxide 31 mmol/L (22-30); Chloride 102 mmol/L (98-107); Non-African American GFR(CKD) >90 (>60 ml/min/1.73 sqM); Potassium 4.6 mmol/L (3.5-5.1); Sodium 139 mmol/L (137-145)
== END | disposition home or self-care (01) ==
LOC: LABPAT 08:01
PROVIDERS: ATTEND Internal Medicine Cardiovascular Disease
DX: Z01.818 Encounter for other preprocedural examination (principal); I25.10 Atherosclerotic heart disease of native coronary artery without angina pectoris
CPT/HCPCS: 36415; 80051; 82565; 84520; 85027

== ENCOUNTER 2020-02-04 07:55 | Day surgery (SDC) | payer MEDICARE ==
[2020-01-28 10:24] VITALS: BMI 27.1
[~2020-02-04 07:55] MED LIST changes: +ALPRAZolam 0.25 MG TAB PO PRN; +ALPRAZolam 0.5 MG TAB PO PRN; +ASPIRIN 325 MG TAB PO ONE; +ATORVASTATIN 80 MG TAB PO ONE; -DEXAMETHASONE SOD PHOSPHATE 10 MG/ML 1 ML VIAL IV ONE; -LIDOCAINE 1% 20 ML VIAL (10MG/ML) FOR IV START INTRADERMA PRN; -MIDAZOLAM 2 MG/2 ML VIAL IV PRN; +NITROGLYCERIN SL TABS 0.4 MG TAB SUBLINGUAL PRN; -ONDANSETRON 4 MG/2 ML VIAL IVP ONE; +SODIUM CHLORIDE 0.9% 1,000 ML in EMPTY BAG 1 BAG IV ONE; -ceFAZolin IN SWFI 2 GM/20 ML SYRINGE IVP ONE; -fentaNYL (PF) 50 MCG/ML 2 ML AMP IV PRN
[2020-02-04] MEDS ORDERED: SODIUM CHLORIDE 0.9% 1,000 ML IV ONE (08:47)
[2020-02-04 08:51] VITALS: RESP 16
[2020-02-04] MEDS ORDERED: LIDOCAINE 1% INJ 10MG/ML (20 ML MDV) ONE ×2 (08:54→09:30)
[2020-02-04] MEDS ORDERED: fentaNYL (PF) 50 MCG/ML 2 ML AMP ONE (09:04)
[2020-02-04] MEDS ORDERED: fentaNYL (PF) 50 MCG/ML 2 ML AMP IV ONE (09:06)
[2020-02-04] MEDS ORDERED: MIDAZOLAM 2 MG/2 ML VIAL IV ONE (09:06)
[2020-02-04] MEDS ORDERED: LIDOCAINE 1% INJ 10MG/ML (20 ML MDV) SQ ONE ×2 (09:09→09:30)
[2020-02-04] MEDS ORDERED: VERAPAMIL 2.5 MG/ML 2 ML AMP ONE (09:26)
[2020-02-04] MEDS ORDERED: HEPARIN SODIUM 1,000 UN/ML (10ML VL) ONE (09:27)
[2020-02-04] MEDS ORDERED: VERAPAMIL SYRINGE (5 MG/10 ML) INTRAARTER ONE ×2 (09:33→09:45)
[2020-02-04] MEDS ORDERED: HEPARIN SODIUM 1,000 UN/ML (10ML VL) IV ONE (09:34)
[2020-02-04] MEDS ORDERED: IOPAMIDOL-370 125ML BTL INJ ONE (09:44)
[2020-02-04] MEDS ORDERED: RX INFO: IV CONTRAST WAS GIVEN 1 EACH MISC MISCELLANE PRN (09:51)
[2020-02-04] MEDS ORDERED: SODIUM CHLORIDE 0.9% 1,000 ML IV SCH ×2 (10:00→16:30)
--- NOTE | 2020-02-04 10:03 | CC ---
CARDIAC CATHETERIZATION REPORT PROCEDURE PERFORMED: Cardiac catheterization. INDICATIONS: This is a 74-year-old gentleman with history of valvular heart disease, atrial fibrillation, peripheral vascular disease status post bilateral aorta bifem surgery, who presented to me with progressively worsening shortness of breath. He had a stress test last year that revealed evidence of prior apical myocardial infarction without any ischemia. Due to worsening shortness of breath, I advised him to undergo cardiac catheterization. PROCEDURE NOTE: After obtaining informed consent, left heart catheterization was attempted via the right femoral artery. The patient had good femoral pulses. We were able to pass a guidewire into the femoral artery and into the iliac after obtaining vascular access without any problem, but I was not able to advance the sheath over the wire, as the sheath was kinking right in the groin. I attempted to pass the dilator. First I tried a smaller size dilator, which again I could not thread over the wire. Hence, I stopped it and we will attempt a radial catheterization on this gentleman. MMODL / IJN: [id number] /
--- NOTE | 2020-02-04 10:30 | CC ---
CARDIAC CATHETERIZATION REPORT DATE OF SERVICE: 02/04/2020 PERFORMING PHYSICIAN: Marco A Webster MD. PROCEDURE PERFORMED: Selective right and left coronary angiogram. INDICATION: This is a pleasant 74-year-old gentleman who sees Dr. Mcpherson in the office as an outpatient with peripheral arterial disease, as well as hypertension and dyslipidemia. He was experiencing symptoms of chest discomfort. He underwent myocardial perfusion imaging stress test and that revealed an apical ischemia. Dr. Mcpherson brought the patient in today to undergo a heart catheterization from right groin approach, but because the patient have significant peripheral arterial disease, he preferred to go from right radial approach and because of that I was asked to perform the catheterization on the patient. APPROACH: Right radial artery. COMPLICATION: None. LEVEL OF SEDATION: Moderate with sedation length of 16 minutes. PROCEDURE DESCRIPTION: After obtaining an informed consent, the patient was brought to the cardiac laboratory phlebotomist. The right radial artery was cannulated using micropuncture technique and a micropuncture wire passed easily. Then I placed a 6-Indonesian sheath at the right radial artery. After that I gave the patient 2 mg of verapamil IA and 10,000 units of heparin IV. Selective right and left coronary angiogram was performed using JR4 and JL3.5 catheters. Left heart catheterization was not performed. The procedure was completed without any complication. Selective coronary angiogram: 1. The right coronary artery is a large caliber vessel and it is a dominant vessel. The RCA is chronically occluded from the ostium and also the proximal portion and fills by collateral from the left coronary system as well as from the right coronary artery itself. The RCA is extremely calcified. 2. The left main is angiographically normal. It is calcified. It bifurcates into LCX, ramus intermedius, and left anterior descending artery. 3. The left circumflex is a large caliber vessel and it is a nondominant vessel. The proximal left circumflex has intermediate lesion and appeared to be in the range of 50% to 60%. The mid left circumflex has mild disease only and the circumflex distally appeared to be angiographically normal. 4. The ramus intermedius is a large caliber vessel and appeared to be angiographically normal. 5. The left anterior descending artery is a large caliber vessel with only mild disease and gives rise into two small diagonals in the midportion. Extensive left to right collaterals were seen filling the right coronary artery. CONCLUSION: 1. Extremely calcified right and left coronary systems. 2. 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 3. Mild to moderate nonobstructive disease involving the left coronary system. POSTPROCEDURE MANAGEMENT: Given the above anatomy, I advise maximized medical treatment at this point. I am going to also discuss the case with Dr. Mcpherson, who is the patient's primary insurance assistant. MMMARIA LUISA / CLARIBELN: [id number] /
[2020-02-04] MEDS: METOPROLOL TARTRATE 50 MG TAB PO SCH (20:23)
[2020-02-04] MEDS: GABAPENTIN 300 MG CAP PO SCH (20:23)
--- NOTE | 2020-02-04 21:44 | PN ---
PROGRESS NOTE FOLLOW-UP NOTE: This is a 74-year-old gentleman who underwent cardiac catheterization to evaluate shortness of breath. We initially attempted right femoral catheterization and subsequently completed the catheterization via the right radial artery. Patient with chronic occlusion of the right with extensive collaterals. The patient in recovery developed bleeding from the vascular access site in the right groin. We had to place a Femstop. Hence I decided to keep him here overnight. At the time of my evaluation this evening at 5:30, patient appears stable, hemodynamically free of symptoms. Groin is soft. Pulses are intact and he does not have any further bleeding. I will watch him overnight and discharge him home in the morning. MMODL / IJN: [id number] /
[2020-02-05 08:58] VITALS: BP 149/62; PULSE 62; TEMP 97.6
[2020-02-05] MEDS ORDERED: amLODIPine 5 MG TAB PO SCH (09:00)
[2020-02-05] MEDS ORDERED: FUROSEMIDE 20 MG TAB PO SCH (09:00)
[2020-02-05] MEDS ORDERED: allopurinoL 300 MG TAB PO SCH (09:00)
[2020-02-05] MEDS ORDERED: PRAVASTATIN SODIUM 40 MG TAB PO SCH (09:00)
[2020-02-05] MEDS ORDERED: ESCITALOPRAM 5 MG TAB PO SCH (09:00)
[2020-02-05] MEDS ORDERED: hydroCHLOROthiazide 25 MG TAB PO SCH (09:00)
[2020-02-05] MEDS: GABAPENTIN 300 MG CAP PO SCH (09:41)
[2020-02-05] MEDS: METOPROLOL TARTRATE 50 MG TAB PO SCH (09:42)
--- NOTE | 2020-02-05 15:40 | DS ---
DISCHARGE SUMMARY DATE OF ADMISSION: 02/04/2020. DATE OF DISCHARGE: 02/05/2020. ADMITTING DIAGNOSES: Shortness of breath, rule out coronary artery disease. PROCEDURES PERFORMED: Left heart catheterization. HISTORY: This is a 74-year-old gentleman whom I electively brought in for a cardiac catheterization. We initially attempted vascular access from the right femoral artery. We were unable to. Hence, we completed the procedure via the right radial artery. His cardiac catheterization showed chronic total occlusion of the right coronary artery with extensive collaterals and mild to moderate nonobstructive disease involving the LAD. He was advised continued with medical therapy with aspirin, statins, beta blockers. After his cardiac cath, he had significant oozing from the right groin and had a small hematoma due to which we had to place a FemStop and we admitted him for observation. He has done well all thru last night. He has not had any further oozing in the right groin and does not have pain and swelling. He ambulated this morning without any issues. On my evaluation this morning, he has mild ecchymosis. There are no pulsatile masses and no significant hematoma. Foot pulses are intact. EXAM: Afebrile. Heart rate is 60 beats per minute. Blood pressure is 146/62, respiratory rate 18, O2 saturation is 97% on room air. Chest exam reveals good air entry bilaterally. Heart exam reveals first and second heart sounds and ejection systolic murmur in the aortic area. Abdomen is soft. Exam of extremities did not reveal any edema. Peripheral pulses are felt. Groin exam reveals mild ecchymosis. There are no pulsatile masses. No significant hematoma at this time. FOLLOWUP: Patient will be followed up in my office in a week's time. DISCHARGE MEDICATIONS: He will go home on all his medications includin. Lopressor 100 b.i.d. 2. Neurontin. 3. Lasix 20 b.i.d. 4. Lexapro. 5. Vitamin C. 6. Hydrochlorothiazide. 7. Norvasc, which I am going to increase to 10. 8. Pravastatin 40. 9. Baby aspirin. I am going to hold the Eliquis this morning. Patient is going to check his groin in the evening and if there is no hematoma or active bleed, he will resume the Eliquis at that time. We will call him on Friday and see how he is doing. If he is doing well, he will see me in a week's time. If not, he will see me sooner. JEREMIAS / GEOVANY: [id number] /
[2020-02-06] MEDS ORDERED: amLODIPine 10 MG TAB PO SCH (09:00)
== END 2020-02-05 10:31 | disposition home or self-care (01) ==
LOC: CATHCVL 07:55 → 3NCARDOBS 16:54 → CATHCVL 02-05 10:31
PROVIDERS: ATTEND Internal Medicine Cardiovascular Disease
DX: I25.110 Atherosclerotic heart disease of native coronary artery with unstable angina pectoris (principal); I25.82 Chronic total occlusion of coronary artery; I44.2 Atrioventricular block, complete; I48.0 Paroxysmal atrial fibrillation; I65.23 Occlusion and stenosis of bilateral carotid arteries; I10 Essential (primary) hypertension; I73.9 Peripheral vascular disease, unspecified; E78.5 Hyperlipidemia, unspecified; E78.00 Pure hypercholesterolemia, unspecified; K75.9 Inflammatory liver disease, unspecified; Z79.01 Long term (current) use of anticoagulants; Z79.82 Long term (current) use of aspirin; Z79.899 Other long term (current) drug therapy; Z88.8 Allergy status to other drugs, medicaments and biological substances; Z95.0 Presence of cardiac pacemaker; Z87.891 Personal history of nicotine dependence; Z82.49 Family history of ischemic heart disease and other diseases of the circulatory system
CPT/HCPCS: 93454; C1769 ×5; C1894 ×2; J2250; J2001; J3010; J1644; Q9967

== ENCOUNTER → 2020-11-09 | Outpatient (CLI) | payer MEDICARE ==
--- NOTE | 2020-11-09 10:38 | XR ---
EXAMINATION TYPE: XR chest 2V DATE OF EXAM: 11/09/2020 COMPARISON: 10/04/2018 HISTORY: Covid 19 TECHNIQUE: Frontal and lateral views of the chest are obtained. FINDINGS: Left infraclavicular generator device with stable leads. Heart size is within normal limit s. Atherosclerotic aorta. Chronic parenchymal markings. Hyperaeration of lungs and flattening of the diaphragms suggestive of COPD. No focal consolidation, pneumothorax or pleural effusion. Previously s een patchy airspace opacity at the right medial lung base has resolved. IMPRESSION: 1. No acute pulmonary disease. 2. COPD. 3. Chronic parenchymal interstitial markings.
== END | disposition home or self-care (01) ==
LOC: RADXRMAIN 07:32
PROVIDERS: ATTEND Internal Medicine Geriatric Medicine
DX: J44.9 Chronic obstructive pulmonary disease, unspecified (principal); J84.9 Interstitial pulmonary disease, unspecified
CPT/HCPCS: 71046

== ENCOUNTER → 2021-09-27 | Outpatient (CLI) | payer MEDICARE ==
[2021-09-27 10:41] LABS: HCT 39.7 % (39.6-50.0); HGB 13.1 g/dL (13.0-17.0); MCH 34.5 pg (27.0-32.0); MCV 104.5 fL (80.0-97.0); Mean Platelet Volume 9.7 fL (9.5-12.2); NRBC Per 100 WBC 0 /100 WBCS (0.0-0.0); Platelet Count 225 X 10*3/uL (140-440); RDW 14.1 % (11.5-14.5); WBC 5.16 X 10*3/uL (4.50-10.00)
[2021-09-27 14:17] LABS: African American GFR (CKD) 99.6 (60.0-200.0); Anion Gap 11.4 mmol/L (10.00-18.00); BUN/Creat Ratio 21.21 Ratio (12.00-20.00); Blood Urea Nitrogen 16.8 mg/dL (9.0-27.0); Calcium 9.7 mg/dL (8.7-10.3); Carbon Dioxide 26.2 mmol/L (20.0-27.5); Non-African American GFR(CKD) 85.9 (60.0-200.0); Potassium 4.7 mmol/L (3.5-5.5)
== END | disposition home or self-care (01) ==
LOC: LABWHC1 07:16
PROVIDERS: ATTEND Internal Medicine Cardiovascular Disease
DX: R06.02 Shortness of breath (principal)
CPT/HCPCS: 36415; 80048; 84443; 85027

== ENCOUNTER → 2022-05-07 | Outpatient (CLI) | payer MEDICARE ==
--- NOTE | 2022-05-07 15:25 | XR ---
EXAMINATION TYPE: PA chest and bilateral rib series (9 views) DATE OF EXAM: 05/07/2022 COMPARISON: 11/09/2020 HISTORY: 76-year-old male R06.00, shortness of breath, dyspnea, pain since fall one week ago. FINDINGS: Left anterior chest wall pacemaker generator with right atrial and right ventricular leads. Heart upp er limits of normal in size. Dens as described calcifications throughout the aorta. Some strandy atel ectasis in the lower lungs. Mild interstitial prominence has a chronic appearance. No consolidation, pneumothorax, or pleural effusion. Subtle callus is suggested along the right anterolateral seventh rib suggesting sequela of remote rib injury. On the left, there is healing callus present along the left lateral sixth and seventh ribs. Also, blair e cortical irregularity along the inferior margin of the left posterior ninth rib. IMPRESSION: 1. Borderline heart size. Chronic changes. No definite acute process. 2. Subacute, healing fractures are suggested involving the left lateral sixth and seventh ribs. There is also some cortical irregularity along the inferior margin of the left posterior ninth rib that jasso ggests an age indeterminate, possibly subacute or chronic rib fracture. Clinically correlate. 3. Subtle callus involving the anterolateral right seventh rib, favor a subacute or chronic fracture deformity. No definite acute displaced rib fracture is seen on either side.
--- NOTE | 2022-05-07 15:56 | XR ---
EXAMINATION TYPE: XR lumbar spine 2 or 3V DATE OF EXAM: 05/07/2022 Comparison: 11/12/2016 Clinical History: 76-year-old male M54.9 back pain Findings: Dense atherosclerotic calcifications throughout the abdominal aorta and iliac arteries. 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 There is a degenerated levoconvex scoliosis, progressed from 2017. Posterior and interbody lumbar fus ion L4-L5. Progression to moderate to severe degenerative disc disease above the fusion at L3-L4. Add itional progression to moderate degenerative disc disease below the fusion at L5-S1. 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 Degenerative grade 1 retrolisthesis L1-L2, L2-L3, and L3-L4. Severe endplate deformity with 40% overall height loss of the L1 vertebral body is new compared to 20 17 but still age indeterminate. Impression: 1. Previous L4-L5 posterior and interbody lumbar fusion. 2. Progressive to moderate to severe degenerative disc disease above the fusion at L3-L4 and moderate degenerative disc disease below the fusion at L5-S1. 3. Progression to Baastrup's disease mid lumbar spine. 4. Degenerative grade 1 retrolistheses L1-L2, L2-L3, L3-L4. 5. New superior endplate deformity of L1 compared to 2017. This still remains age indeterminate. Lennie elate for any focal pain at this level.
--- NOTE | 2022-05-07 15:57 | XR ---
EXAMINATION TYPE: XR Hip 2 views LT DATE OF EXAM: 05/07/2022 Comparison: None Clinical History: 76-year-old male M25.552 L hip pain Findings: Mild degenerative changes left hip. Osteopenia. Some surgical clips at the medial upper left thigh. A t this chronic calcifications throughout. No acute fracture, subluxation, dislocation. Impression: Very mild degenerative change of the left hip. No acute osseous abnormality seen. Some retained surgi lynette clips are noted. Clinically correlate.
== END | disposition home or self-care (01) ==
LOC: RADXRMAIN 09:43
PROVIDERS: ATTEND Internal Medicine Geriatric Medicine
DX: M51.37 Other intervertebral disc degeneration, lumbosacral region (principal); M43.16 Spondylolisthesis, lumbar region; M43.26 Fusion of spine, lumbar region; M16.12 Unilateral primary osteoarthritis, left hip; M25.552 Pain in left hip
CPT/HCPCS: 71111; 72100; 73501

== ENCOUNTER 2022-05-31 09:38 | Day surgery (SDC) | payer MEDICARE ==
[2022-05-29 11:28] VITALS: BMI 22.4
[2022-05-31] MEDS ORDERED: LACTATED RINGERS 1,000 ML IV SCH (10:16)
[2022-05-31 10:33] VITALS: RESP 16; TEMP 97
[2022-05-31] MEDS ORDERED: PROPOFOL 10 MG/ML 20 ML VIAL IV ONE (11:01)
[2022-05-31] MEDS ORDERED: LIDOCAINE 2% INJ 20 MG/ML (2 ML VIAL) ONE (11:01)
--- NOTE | 2022-05-31 11:26 | P.PCN ---
Date of Procedure: 05/31/22 Procedure(s) Performed: BRIEF HISTORY: Patient is a 76-year-old pleasant male scheduled for an elective colonoscopy as a part of the chronic diarrhea for the last 7 months duration. He has bowel movements anywhere from 2-3 a day which are loose to watery in consistency. PROCEDURE PERFORMED: Colonoscopy with random biopsies.. PREOPERATIVE DIAGNOSIS: Chronic diarrhea for 9 months.. IV sedation per Anesthesia. PROCEDURE: After informed consent was obtained, the patient, was brought into the endoscopy unit. IV sedation was administered by Anesthesia under continuous monitoring. Digital rectal examination was normal. Initially the Olympus CF-160 flexible video colonoscope was then inserted in the rectum, gradually advanced into the cecum with moderate to severe difficulty. Careful examination was performed as the scope was gradually being withdrawn. Ileocecal valve and the appendiceal orifice were visualized and appeared normal. Prep was excellent. Mucosa of the cecum, ascending colon, transverse colon, descending colon, sigmoid colon, and rectum appeared normal. Diffuse diverticulosis noted. Random biopsies were done from ascending and descending colon to rule out metastases/collagenous colitis. Retroflexion was performed in the rectum and no lesions were seen. The patient tolerated the procedure well. IMPRESSION: Normal-appearing colon from rectum to cecum no evidence of colitis or colorectal neoplasia Scattered sigmoid diverticula . RECOMMENDATIONS: Findings of this examination were discussed with the patient as well as his family. He was advised to follow with the biopsy results. In the meantime he will continue with Imodium as needed for the chronic diarrhea..
[2022-05-31 11:50] VITALS: BP 102/56; PULSE 60
== END 2022-05-31 12:19 | disposition home or self-care (01) ==
LOC: ORWHC2ENDO 09:38
PROVIDERS: ATTEND Internal Medicine Gastroenterology
DX: K57.30 Diverticulosis of large intestine without perforation or abscess without bleeding (principal); I10 Essential (primary) hypertension; E78.5 Hyperlipidemia, unspecified; I73.9 Peripheral vascular disease, unspecified; I48.91 Unspecified atrial fibrillation; Z86.73 Personal history of transient ischemic attack (TIA), and cerebral infarction without residual deficits; Z88.8 Allergy status to other drugs, medicaments and biological substances; Z79.899 Other long term (current) drug therapy; Z98.890 Other specified postprocedural states; Z95.0 Presence of cardiac pacemaker; Z79.01 Long term (current) use of anticoagulants
CPT/HCPCS: 88305; 45380; J2704; J2001

== ENCOUNTER 2022-09-04 08:38 | Day surgery (SDC) | payer MEDICARE ==
[2022-08-30 11:33] VITALS: BMI 23.7
[~2022-09-04 08:38] MED LIST changes: -ALPRAZolam 0.25 MG TAB PO PRN; -ALPRAZolam 0.5 MG TAB PO PRN; -ASPIRIN 325 MG TAB PO ONE; -ATORVASTATIN 80 MG TAB PO ONE; +HYDROmorphone 0.5 MG/0.5 ML SYRINGE IVP PRN; +LACTATED RINGERS 1,000 ML IV SCH; +LIDOCAINE 1% (10MG/ML) FOR IV START INTRADERMA PRN; -NITROGLYCERIN SL TABS 0.4 MG TAB SUBLINGUAL PRN; +ONDANSETRON 4 MG/2 ML VIAL IVP ONE; -SODIUM CHLORIDE 0.9% 1,000 ML in EMPTY BAG 1 BAG IV ONE; +ceFAZolin 1,000 MG in SODIUM CHLORIDE 0.9% IRRIGATIO 1,000 ML IRRIGATION PRN
[2022-09-04] MEDS ORDERED: ROCURONIUM 10 MG/ML (5 ML VIAL) IV ONE (09:38)
[2022-09-04] MEDS ORDERED: fentaNYL (PF) 50 MCG/ML 2 ML AMP ONE (09:38)
[2022-09-04] MEDS ORDERED: GLYCOPYRROLATE 0.2 MG/ML 2 ML VIAL ONE (09:38)
[2022-09-04] MEDS ORDERED: PROPOFOL 10 MG/ML 20 ML VIAL IV ONE (09:38)
[2022-09-04] MEDS ORDERED: LIDOCAINE 2% INJ 20 MG/ML (2 ML VIAL) ONE (09:38)
[2022-09-04] MEDS ORDERED: MIDAZOLAM 2 MG/2 ML VIAL ONE (09:38)
[2022-09-04] MEDS ORDERED: SUCCINYLCHOLINE CHLORIDE 200 MG/10 ML VIAL IV ONE (09:38)
[2022-09-04] MEDS ORDERED: NEOSTIGMINE 1 MG/ML 10 ML VIAL ONE (09:38)
[2022-09-04] MEDS ORDERED: LIDOCAINE 0.5%-EPI 1:200,000 50 ML VIAL SQ ONE (09:40)
[2022-09-04] MEDS ORDERED: IOPAMIDOL M200 10 ML VIAL MISCELLANE ONE (09:40)
[2022-09-04] MEDS ORDERED: SENNOSIDES-DOCUSATE SODIUM 1 EACH TAB PO PRN (10:43)
[2022-09-04] MEDS ORDERED: BENZOCAINE/MENTHOL LOZENG 1 EACH LOZENGE MUCOUS MEM PRN (10:43)
[2022-09-04] MEDS ORDERED: HYDROcodone/APAP 5-325MG 1 EACH TAB PO PRN (10:43)
[2022-09-04] MEDS ORDERED: ONDANSETRON 4 MG/2 ML VIAL IVP PRN (10:43)
[2022-09-04] MEDS ORDERED: CYCLOBENZAPRINE 10 MG TAB PO PRN (10:43)
[2022-09-04] MEDS ORDERED: HYDROmorphone 0.5 MG/0.5 ML SYRINGE IVP PRN (10:43)
[2022-09-04] MEDS ORDERED: SODIUM CHLORIDE 0.9% 1,000 ML IV SCH (10:45)
[2022-09-04 10:48] VITALS: TEMP 97
--- NOTE | 2022-09-04 10:48 | P.OP ---
Date of Procedure: 09/04/22 Preoperative Diagnosis: L1 vertebral compression fracture, subacute traumatic Intractable low back pain failed conservative treatment for her L1 fracture History of prior fusion L4 5 which appears stable Postoperative Diagnosis: Same Anesthesia: GETA Pathology: other (L1 vertebral body biopsy sent to pathology) Condition: stable Disposition: PACU Description of Procedure: BRIEF OPERATIVE NOTE Preoperative Diagnosis: L1 vertebral compression fracture, subacute traumatic Intractable low back pain failed conservative treatment for her L1 fracture History of prior fusion L4 5 which appears stable Postoperative Diagnosis: Same Procedure: Kyphoplasty of L1 Vertebral body biopsy of L1 Use of biplanar fluoroscopic guidance Surgeon: Dr. Watt Bindery Machine Operator: Raza CÁRDENAS Anesthesia: General anesthesia Estimated blood loss: Less than 10 mL Specimen: Vertebral body biopsy of L1 sent to pathology in formalin Complications: None apparent Components implanted: Bone cement approximately 5-1/2 mL Disposition: To recovery room in good stable condition. OPERATIVE INDICATIONS The patient has been having issues in their back ever since sustaining an injury. He has a history of lumbar issues and prior lumbar fusion at L4 5. He is having pain primarily at his lower back and around the midline. He is not goldsmith ving any new radicular symptoms or weakness in his lower extremities. His found have a stable fusion L4 5 with evidence of a new fracture at L1 with approximately 75% height loss. We attempted conservative treatment however the patient was having continued debility and severe pain due to this fracture sacral did well with his imaging. The patient has been through conservative treatment. They attempted conservative care with bracing however they're not having any benefit despite brace use. They continue to have significant pain and debility due to their fracture. We discussed various treatment options including surgery, and the patient wishes to proceed with surgery We discussed the risk, patient's alternatives and benefits of surgery including but not limited to, risk of bleeding risk of infection, risk of need for further surgery, risk of decreased, loss of motion, loss of function, cement extravasation, nerve damage, paralysis, heart attack, blindness and . OPERATIVE SUMMARY After discussing all the risks, patient alternatives and benefits at length, the patient elected to proceed with surgical intervention, signed informed consent, and presented for their procedure. The patient was seen and examined in the preoperative holding area and the surgical site was marked. The patient was given antibiotics and brought to the operating room. The patient was sedated and intubated by anesthesia in standard fashion. The patient was positioned on to the operating room table in a prone position on the appropriate well-padded and well molded bilateral chest rolls. We were careful to pad any bony prominences and pressure points. We were careful to maintain the patient's cervical spine and good neutral alignment and position throughout. We used 2 C-arm machines to establish biplanar fluoroscopic guidance in AP and lateral positions. We were able to localize the fractures appropriately at L1. The patient was prepped and draped in a normal standard fashion. An appropriate timeout and keystone protocol performed. We were able to proceed with the surgery. The local wound area was infiltrated with local anesthetic. An incision was made over the lateral aspect of the pedicle over the appropriate levels with a small 2 mm stab incision. Intraoperative fluoroscopy was taken which showed a marker at the appropriate level. With the appropriate level positively confirmed, I was able to position a sharp trocar over the lateral aspect of the pedicle. As able to advance the trocar into the pedicle and into the posterior aspect of vertebral body being careful to avoid penetration cephalad caudad or medially. The trocar was placed appropriately into the posterior aspect of vertebral body at the appropriate levels. This was confirmed with C-arm guidance. With the trocar intact I was then able to take a bone biopsy with a biopsy punch or a bony drill. The biopsy specimen was passed off to be sent to pathology in formalin. I was then able to place the kyphoplasty balloon within the vertebral body. The position was checked on C-arm. I was able to inflate the balloon under low pressure and visualization with C-arm. The balloon was well enclosed within the vertebral body of L1 vertebral body. The cement was prepared. With the cement at appropriate working condition the balloons were deflated and removed. I was able to place bony cement with trocar with the cement delivery device under low pressure. It had good fill within the vertebral body. Some of the cement works through the inferior fracture line into the disc space at L1 to but appeared to be well contained. There is no evidence of any extravasation of the cement posteriorly toward the canal. The cement was well contained at the appropriate levels of L1. The cement was allowed to cure appropriately. The trochars removed and final images were taken on C-arm. This showed the cement at the appropriate levels. We were able to proceed with closure. The wound was cleaned and dried and dressed with the appropriate dressing. The drapes were broken down. The patient was gently rolled back onto their hospital bed being careful to maintain their cervical spine and good neutral alignment and position. They were woken up by anesthesia, extubated, and brought to the recovery room in good stable condition. The patient will be admitted to the hospital for observation and for appropriate postoperative care, medical management and monitoring. We will continue to follow them closely about the postoperative course.
--- NOTE | 2022-09-04 11:01 | XR ---
Fluoroscopy History: L1 kyphoplasty. Two C-arms used. Elite A: DAP 6.8001 and 32 sec fluoro. Elite B: DAP 4.4887 and 29 sec fluoro.
[2022-09-04 11:39] VITALS: RESP 16
[2022-09-04 12:41] VITALS: BP 166/64; PULSE 53
== END 2022-09-04 13:06 | disposition home or self-care (01) ==
LOC: OR 08:38
PROVIDERS: ATTEND Orthopaedic Surgery Orthopaedic Surgery of the Spine
DX: S32.010A Wedge compression fracture of first lumbar vertebra, initial encounter for closed fracture (principal); W19.XXXA Unspecified fall, initial encounter; Z98.1 Arthrodesis status; I10 Essential (primary) hypertension; E78.5 Hyperlipidemia, unspecified; F32.A Depression, unspecified; M19.90 Unspecified osteoarthritis, unspecified site; Z87.19 Personal history of other diseases of the digestive system; K75.9 Inflammatory liver disease, unspecified; Z88.8 Allergy status to other drugs, medicaments and biological substances; Z79.01 Long term (current) use of anticoagulants; Z79.52 Long term (current) use of systemic steroids; Z79.899 Other long term (current) drug therapy; Z87.891 Personal history of nicotine dependence; F10.20 Alcohol dependence, uncomplicated; Z95.0 Presence of cardiac pacemaker
CPT/HCPCS: 22514; 86900; 86901; 86850; 88307; 88311; 72100; J2250; J0330; J2710; J0690; J2405; J3010; J2704; Q9966; J2001

== ENCOUNTER → 2023-04-19 | Outpatient (CLI) | payer MEDICARE ==
[2023-04-19 12:43] LABS: Basophils # (A) 0.01 X 10*3/uL (0.00-0.10); Basophils % (A) 0.2 %; Eosinophils # (A) 0 X 10*3/uL (0.04-0.35); Eosinophils % (A) 0 %; HGB 12.4 d/dL (13.0-17.0); Lymphocytes # (A) 0.71 X 10*3/uL (0.90-5.00); Lymphocytes % (A) 11.4 %; MCH 33.8 pg (27.0-32.0); MCHC 32.6 d/dL (32.0-37.0); MCV 103.5 FL (80.0-97.0); Mean Platelet Volume 10.1 FL (9.5-12.2); Monocytes # (A) 0.53 X 10*3/uL (0.20-1.00); Monocytes % (A) 8.5 %; NRBC Per 100 WBC 0 X 10*3/uL (0.00-0.01); Neutrophils # (A) 4.95 X 10*3/uL (1.80-7.70); Neutrophils % (A) 79.3 %; Platelet Count 256 X 10*3/uL (140-440); RBC 3.67 X 10*6/uL (4.40-5.60); RDW 15.2 % (11.5-14.5); WBC 6.24 X 10*3/uL (4.50-10.00)
[2023-04-19 13:22] LABS: Erythrocyte Sedimentation Rate 9 mm/Hr (0-20)
[2023-04-19 14:21] LABS: ALT 17 U/L (10-49); AST 25 U/L (14-35); Albumin 4.2 d/dL (3.8-4.9); Albumin/Globulin Ratio 1.68 Ratio (1.60-3.17); Alkaline Phosphatase 52 U/L (41-126); BUN/Creat Ratio 21.22 Ratio (12.00-20.00); Blood Urea Nitrogen 19.1 mg/dL (9.0-27.0); Calcium 9.9 mg/dL (8.7-10.3); Carbon Dioxide 24.7 mmol/L (21.6-31.8); Chloride 101 mmol/L (96-109); Globulin 2.5 d/dL (1.6-3.3); Glucose 104 mg/dL (70-110); Potassium 4.4 mmol/L (3.5-5.5); Sodium 139 mmol/L (135-145); Total Bilirubin 0.4 mg/dL (0.3-1.2); Total Protein 6.7 d/dL (6.2-8.2)
[2023-04-21 08:20] LABS: C Reactive Protein <0.30 mg/dL (0.00-0.80)
== END | disposition home or self-care (01) ==
LOC: LABWHC1 08:35
PROVIDERS: ATTEND Internal Medicine Gastroenterology
DX: K52.9 Noninfective gastroenteritis and colitis, unspecified (principal)
CPT/HCPCS: 36415; 80053; 83516; 85025; 85652; 86140

== ENCOUNTER 2023-10-20 17:36 | Emergency (ER) | payer MEDICARE ==
[2023-10-20 18:12] VITALS: TEMP 97.4
[2023-10-20] MEDS: LIDOCAINE/EPINEPHR/TETRACAINE 5 ML BOTTLE TOPICAL ONE (18:13)
[2023-10-20] MEDS: DIPH,PERTUS(ACELL)TETVAC-LF 0.5 ML VIAL IM ONE (18:14)
--- NOTE | 2023-10-20 18:22 | ED ---
General Adult HPI - General Chief complaint: Fall Stated complaint: Fall Time Seen by Provider: 10/20/23 17:41 Source: patient, family, RN notes reviewed Mode of arrival: EMS Limitations: no limitations - History of Present Illness Initial comments: 78-year-old male presents to the emergency department for evaluation of head injury following a fall patient states that earlier today he got up out of his chair to go to dinner when he fell forward hitting his head on a metal rail. He states that he is on Eliquis. He did not lose consciousness. He states that he is unsure what caused him to fall but believes that he got up to fast to go get dinner. He reports a laceration to the back of his head. He denies any other symptoms. Denies lightheadedness, headache, chest pain, shortness of breath, urinary symptoms. Unsure of last tetanus vaccination. - Related Data Home Medications Medication Instructions Recorded Confirmed Gabapentin [Neurontin] 300 mg PO BID 02/27/18 08/30/22 allopurinoL [Zyloprim] 300 mg PO DAILY 02/27/18 08/30/22 Ascorbic Acid [Vitamin C] 1,000 mg PO DAILY 10/02/18 08/30/22 Multivitamins, Thera [Multivitamin 1 tab PO DAILY 10/02/18 08/30/22 (formulary)] Metoprolol Tartrate [Lopressor] 100 mg PO BID 01/28/20 08/30/22 Apixaban [Eliquis] 5 mg PO BID 05/29/22 08/30/22 Fenofibrate Nanocrystallized 145 mg PO DAILY 05/29/22 08/30/22 [Fenofibrate] Aspirin 975 mg PO DIRECTED PRN 08/30/22 08/30/22 Furosemide [Lasix] 20 mg PO BID 08/30/22 08/30/22 amLODIPine [Norvasc] 10 mg PO DAILY 08/30/22 08/30/22 Previous Rx's Medication Instructions Recorded HYDROcodone/APAP 7.5-325MG [[place] 1 each PO Q6HR PRN #28 tab 09/04/22 7.5-325] Allergies Allergy/AdvReac Type Severity Reaction Status Date / Time lisinopril Allergy Swelling Verified 10/20/23 17:53 OF FACE Review of Systems ROS Statement: Those systems with pertinent positive or pertinent negative responses have been documented in the HPI. ROS Other: All systems not noted in ROS Statement are negative. Past Medical History Past Medical History: Atrial Fibrillation, CVA/TIA, Hyperlipidemia, Hypertension, Osteoarthritis (OA), Vascular Disorder Additional Past Medical History / Comment(s): HEPATITIS UNKNOWN TYPE YEARS AGO. stroke rt eye History of Any Multi-Drug Resistant Organisms: None Reported Past Surgical History: Appendectomy, Back Surgery, Pacemaker Additional Past Surgical History / Comment(s): LEFT LEG- BYPASS, RIGHT LEG BYPASS , BOWEL SURGERY Past Anesthesia/Blood Transfusion Reactions: No Reported Reaction Type of Cardiac Device: Permanent Pacemaker Device Placement Date:: 09/2018 Past Psychological History: Depression Smoking Status: Former smoker Past Alcohol Use History: Daily Past Drug Use History: None Reported - Past Family History Mother Family Medical History: No Reported History Additional Family Medical History / Comment(s): Mother at age 88 from septic shock. Father Family Medical History: Coronary Artery Disease (CAD) Additional Family Medical History / Comment(s): Father at age 94, hx CABG and aortic aneurysm. Brother(s) Family Medical History: No Reported History Additional Family Medical History / Comment(s): . Sister(s) Family Medical History: No Reported History Additional Family Medical History / Comment(s): . Son(s) Family Medical History: No Reported History Additional Family Medical History / Comment(s): . Daughter(s) Family Medical History: No Reported History Additional Family Medical History / Comment(s): . General Exam Limitations: no limitations General appearance: alert, in no apparent distress Head exam: Present: other (laceration to scalp) Eye exam: Present: normal appearance, PERRL, EOMI. Absent: scleral icterus, conjunctival injection, periorbital swelling ENT exam: Present: normal exam, mucous membranes moist, TM's normal bilaterally, normal external ear exam Neck exam: Present: normal inspection. Absent: tenderness, meningismus, lymphadenopathy Respiratory exam: Present: normal lung sounds bilaterally. Absent: respiratory distress, wheezes, rales, rhonchi, stridor Cardiovascular Exam: Present: regular rate, normal rhythm, normal heart sounds. Absent: systolic murmur, diastolic murmur, rubs, gallop, clicks GI/Abdominal exam: Present: soft, normal bowel sounds. Absent: distended, tenderness, guarding, rebound, rigid Extremities exam: Present: normal inspection, full ROM, normal capillary refill. Absent: tenderness, pedal edema, joint swelling, calf tenderness Back exam: Present: normal inspection Neurological exam: Present: alert, oriented X3, CN II-XII intact Psychiatric exam: Present: normal affect, normal mood Skin exam: Present: warm, dry, normal color, other (laceration to posterior scalp about 2cm). Absent: intact, rash Course Vital Signs 10/20/23 10/20/23 17:50 19:39 Temperature 97.4 F L Pulse Rate 62 58 L Respiratory 18 16 Rate Blood Pressure 152/65 140/58 O2 Sat by Pulse 92 L 95 Oximetry Procedures - Laceration Laceration #1 Consent Obtained: verbal consent Indication: laceration Site: scalp Size (cm): 2 Description: linear Depth: simple, single layer Type of Sutures: other Size of Sutures: other Number of Sutures: 2 (treva) Medical Decision Making - Medical Decision Making Was pt. sent in by a medical professional or institution (Dr. PA, [employer], urgent care, hospital, or fdc...) When possible be specific @ -No Did you speak to anyone other than the patient for history (EMS, parent, family, police, friend...)? What history was obtained from this source @ -No Did you review nursing and triage notes (agree or disagree)? Why? @ -I reviewed and agree with nursing and triage notes Were old charts reviewed (outside hosp., previous admission, EMS record, old EKG, old radiological studies, urgent care reports/EKG's, fdc records)? Report findings @ -No old charts were reviewed Differential Diagnosis (chest pain, altered mental status, abdominal pain women, abdominal pain men, vaginal bleeding, weakness, fever, dyspnea, syncope, headache, dizziness, GI bleed, back pain, seizure, CVA, palpatations, mental health, musculoskeletal)? @ -Fall, head injury, laceration, intracranial hemorrhage, this list is not all inclusive EKG interpreted by me (3pts min.). @ -EKG at 1827 shows paced rhythm rate 55, CT 84, QRS 224. QTQTc [id number] X-rays interpreted by me (1pt min.). @ -None CT interpreted by me (1pt min.). @ -CT brain and C-spine obtained which show no evidence of acute intracranial hemorrhage or mass effect, no acute C-spine fracture U/S interpreted by me (1pt. min.). @ -None done What testing was considered but not performed or refused? (CT, X-rays, U/S, labs)? Why? @ -None What meds were considered but not given or refused? Why? @ -None Did you discuss the management of the patient with other professionals (professionals i.e. DrStephany, PA, [employer]ER, lab, RT, psych nurse, health care social worker, hydroelectric machinery mechanic, teacher, sustainability officer, casework manager)? Give summary @ -No Was smoking cessation discussed for >3mins.? @ -No Was critical care preformed (if so, how long)? @ -No Were there social determinants of health that impacted care today? How? (Homeles sness, low income, unemployed, alcoholism, drug addiction, transportation, low edu. Level, literacy, decrease access to med. care, snf, rehab)? @ -No Was there de-escalation of care discussed even if they declined (Discuss DNR or withdrawal of care, Hospice)? DNR status @ -No What co-morbidities impacted this encounter? (DM, HTN, Smoking, COPD, CAD, Cancer, CVA, ARF, Chemo, Hep., AIDS, mental health diagnosis, sleep apnea, morbid obesity)? @ -None Was patient admitted / discharged? Hospital course, mention meds given and route, prescriptions, significant lab abnormalities, going to OR and other pertinent info. @ -Discharged. Presented to the emergency department for evaluation of fall with head injury. Laboratory studies obtained, patient hypokalemic with potassium 3.0, orally replaced. Mild anemia. CT of his brain and C-spine were obtained which showed no evidence of acute intracranial hemorrhage or mass effect, no acute C-spine fracture. Laceration on the posterior scalp was cleaned and repaired with treva. Patient was updated on his tetanus vaccination. Patient feeling well and would like to be discharged home. Patient understanding agreeable with discharge plan. Patient stable at time of discharge. Case discussed with Dr. Davis. Undiagnosed new problem with uncertain prognosis? @ -No Drug Therapy requiring intensive monitoring for toxicity (Heparin, Nitro, Insulin, Cardizem)? @ -No Were any procedures done? @ -No Diagnosis/symptom? @ -Fall, head injury, laceration Acute, or Chronic, or Acute on Chronic? @ -acute Uncomplicated (without systemic symptoms) or Complicated (systemic symptoms)? @ -uncomplicated Side effects of treatment? @ -No Exacerbation, Progression, or Severe Exacerbation? @ -No Poses a threat to life or bodily function? How? (Chest pain, [place], [place], pneumonia, PE, COPD, DKA, ARF, appy, cholecystitis, CVA, Diverticulitis, Homicidal, Suicidal, threat to staff... and all critical care pts) @ -No - Lab Data Result diagrams: 10/20/23 18:22 10/20/23 18:22 Lab Results 10/20/23 10/20/23 10/20/23 Range/Units 18:22 18:22 18:22 WBC 4.7 (3.8-10.6) k/uL RBC 3.44 L (4.30-5.90) m/uL Hgb 11.6 L (13.0-17.5) gm/dL Hct 35.9 L (39.0-53.0) % MCV 104.5 H (80.0-100.0) fL MCH 33.9 (25.0-35.0) pg MCHC 32.4 (31.0-37.0) g/dL RDW 14.9 (11.5-15.5) % Plt Count 206 (150-450) k/uL MPV 8.2 Neutrophils % (Manual) 49 % Lymphocytes % (Manual) 33 % Monocytes % (Manual) 15 % Eosinophils % (Manual) 3 % Metamyelocytes % 1 % Myelocytes % 1 % Neutrophils # (Manual) 2.30 (1.3-7.7) k/uL Lymphocytes # (Manual) 1.55 (1.0-4.8) k/uL Monocytes # (Manual) 0.71 (0-1.0) k/uL Eosinophils # (Manual) 0.14 (0-0.7) k/uL Metamyelocytes # (Man) 0.05 H (0) k/uL Myelocytes # (Manual) 0.05 H (0) k/uL Nucleated RBCs 0 (0-0) /100 WBC Manual Slide Review Performed Macrocytosis Moderate PT 11.7 (10.0-12.5) sec INR 1.1 (<1.2) APTT 26.3 (22.0-30.0) sec Sodium 134 L (137-145) mmol/L Potassium 3.0 L (3.5-5.1) mmol/L Chloride 102 (98-107) mmol/L Carbon Dioxide 24 (22-30) mmol/L Anion Gap 8 mmol/L BUN 20 (9-20) mg/dL Creatinine 0.77 (0.66-1.25) mg/dL Est GFR (CKD-EPI)AfAm >90 (>60 ml/min/1.73 sqM) Est GFR (CKD-EPI)NonAf 86 (>60 ml/min/1.73 sqM) Glucose 81 (74-99) mg/dL Calcium 9.1 (8.4-10.2) mg/dL Total Bilirubin 0.4 (0.2-1.3) mg/dL AST 48 (17-59) U/L ALT 29 (4-49) U/L Alkaline Phosphatase 51 (38-126) U/L Total Protein 6.2 L (6.3-8.2) g/dL Albumin 3.4 L (3.5-5.0) g/dL Disposition Clinical Impression: Fall, Head injury Disposition: HOME SELF-CARE Condition: Stable Instructions (If sedation given, give patient instructions): Fall Prevention for Older Adults (ED), Staple Care (ED) Additional Instructions: Please have treva removed in 7-10 days. Follow up with your primary care provider for potassium recheck. Return to the emergency department for new or worsening symptoms. Is patient prescribed a controlled substance at d/c from ED?: No Referrals: Terry Sloan MD [Primary Care Provider] - 1-2 days
[2023-10-20 18:44] LABS: INR 1.1 (<1.2); Partial Thromboplastin Time 26.3 sec (22.0-30.0); Prothrombin Time 11.7 sec (10.0-12.5)
[2023-10-20 18:48] LABS: HCT 35.9 % (39.0-53.0); HGB 11.6 gm/dL (13.0-17.5); MCH 33.9 pg (25.0-35.0); MCHC 32.4 g/dL (31.0-37.0); MCV 104.5 fL (80.0-100.0); Macrocytosis Moderate; Mean Platelet Volume 8.2; Platelet Count 206 k/uL (150-450); RBC 3.44 m/uL (4.30-5.90); RDW 14.9 % (11.5-15.5); WBC 4.7 k/uL (3.8-10.6)
[2023-10-20 18:58] LABS: ALT 29 U/L (4-49); AST 48 U/L (17-59); African American GFR (CKD) >90 (>60 ml/min/1.73 sqM); Albumin 3.4 g/dL (3.5-5.0); Alkaline Phosphatase 51 U/L (38-126); Anion Gap 8 mmol/L; Blood Urea Nitrogen 20 mg/dL (9-20); Calcium 9.1 mg/dL (8.4-10.2); Carbon Dioxide 24 mmol/L (22-30); Chloride 102 mmol/L (98-107); Glucose 81 mg/dL (74-99); Non-African American GFR(CKD) 86 (>60 ml/min/1.73 sqM); Sodium 134 mmol/L (137-145); Total Bilirubin 0.4 mg/dL (0.2-1.3); Total Protein 6.2 g/dL (6.3-8.2)
[2023-10-20] MEDS ORDERED: Potassium Replacement Protocol 1 EACH MISC MISCELLANE PRN (19:00)
--- NOTE | 2023-10-20 19:00 | CT ---
EXAMINATION TYPE: CT brain dior razo DATE OF EXAM: 10/20/2023 COMPARISON: None HISTORY: fall CT DLP: 1534.2 mGycm Automated exposure control for dose reduction was used. TECHNIQUE: CT scan of the head and cervical spine are performed without contrast. Findings: Head CT: Ventricles, basal cisterns and sulci over convexities are moderately enlarged consistent with moderat e atrophy appropriate for the patient's age. There is mild to moderate decreased density in the periventricular white matter consistent with chron ic ischemic white matter demyelination. There is no mass effect or shift of midline structures. No abnormal density is seen throughout the brain parenchyma and there is no acute intra or extra-axia l hemorrhage. Posterior fossa including the brainstem, fourth ventricle and cerebellar pontine angles are grossly n ormal. The intraorbital contents appear normal and symmetric. Visualized paranasal sinuses are well aerated. CT cervical spine: Craniovertebral junction relationships and prevertebral soft tissues are normal. The cervical vertebral segments are normal in height and alignment and there is no fracture subluxati on. There is moderate to marked disc space narrowing and spondylosis at C4-5, C5-6 and C6-7 levels. The f acet joints are intact. There is moderate degeneration of the uncovertebral joints at C4-5, C5-6 and C6-7 levels. The bony cervical canal is widely patent. There is mild bony neural foraminal encroachment at C4-5 b ilaterally. The paraspinal soft tissues unremarkable. IMPRESSION: 1. Head CT: No acute bleed or mass effect. 2. CT cervical spine: No acute trauma. Degenerative changes as described above.
[2023-10-20 19:09] LABS: Eosinophils # (M) 0.14 k/uL (0-0.7); Lymphocytes # (M) 1.55 k/uL (1.0-4.8); Metamyelocytes # (M) 0.05 k/uL (0); Metamyelocytes % 1 %; Monocytes # (M) 0.71 k/uL (0-1.0); Myelocytes # (M) 0.05 k/uL (0); Myelocytes % 1 %; Neutrophils % (M) 49 %; Nucleated Red Blood Cells 0 /100 WBC (0-0); Total Cells Counted 200
[2023-10-20] MEDS: POTASSIUM CHLORIDE ER 20 MEQ TAB.ER PO SCH (19:33)
[2023-10-20] MEDS: POTASSIUM CHLORIDE ER 20 MEQ TAB.ER PO STA (19:37)
[2023-10-20 20:11] VITALS: BP 140/58; PULSE 58; RESP 16
== END 2023-10-20 19:46 | disposition home or self-care (01) ==
LOC: EC 17:36
DX: S01.01XA Laceration without foreign body of scalp, initial encounter (principal); Z88.8 Allergy status to other drugs, medicaments and biological substances; Z87.891 Personal history of nicotine dependence; Z23 Encounter for immunization; W07.XXXA Fall from chair, initial encounter
CPT/HCPCS: 12001; 36415; 70450; 72125; 80053; 85025; 85610; 85730; 90471; 90715; 93005; 99285

== ENCOUNTER 2024-02-08 22:56 | Inpatient (IN) | payer MEDICARE ==
--- NOTE | 2024-02-08 23:40 | ED ---
Weakness HPI - General Stated complaint: Fall, Hypotension Time Seen by Provider: 02/08/24 22:57 Source: RN notes reviewed, old records reviewed, Caregiver Mode of arrival: EMS Limitations: language barrier, altered mental status - History of Present Illness Initial comments: This is an 78-year-old male to the ER for evaluation of significant severe weakness. Patient had a syncopal event prior to arrival syncope and unresponsiveness patient comes to the ER for a weeklong or greater of diarrhea nausea vomiting decreased appetite not feeling well. MD Complaint: generalized weakness, lack of energy, difficulty walking -: days(s) Location: generalized Severity: moderate Severity scale (1-10): 7 Consistency: constant Improves with: none Worsens with: none Context: recent illness, history of similar Associated Symptoms: denies other symptoms - Related Data Home Medications Medication Instructions Recorded Confirmed Gabapentin [Neurontin] 300 mg PO BID 02/27/18 02/09/24 allopurinoL [Zyloprim] 300 mg PO DAILY 02/27/18 02/09/24 Ascorbic Acid [Vitamin C] 1,000 mg PO DAILY 10/02/18 02/09/24 Multivitamins, Thera [Multivitamin 1 tab PO DAILY 10/02/18 02/09/24 (formulary)] Apixaban [Eliquis] 5 mg PO BID 05/29/22 02/09/24 Fenofibrate Nanocrystallized 145 mg PO DAILY 05/29/22 02/09/24 [Fenofibrate] Furosemide [Lasix] 20 mg PO BID 08/30/22 02/09/24 Cholecalciferol [Vitamin D3 (25 50 mcg PO DAILY 02/09/24 02/09/24 Mcg = 1000 Iu)] Diphenox-Atrop 2.5-0.025 mg 2 tab PO QID PRN 02/09/24 02/09/24 [Lomotil] Escitalopram [Lexapro] 20 mg PO DAILY 02/09/24 02/09/24 Immune Support Complex 75mg 2 tab PO DAILY 02/09/24 02/09/24 Metoprolol Tartrate [Lopressor] 100 mg PO BID 02/09/24 02/09/24 Pravastatin Sodium [Pravachol] 40 mg PO DAILY 02/09/24 02/09/24 Previous Rx's Medication Instructions Recorded Cholestyramine (with Sugar) 4 gm PO TID BETWEEN MEALS #90 02/19/24 [Questran Packet] packet Folic Acid 1 mg PO DAILY #60 tab 02/19/24 Ipratropium-Albuterol Nebulize 3 ml INHALATION RT-Q6H PRN #120 02/19/24 [Duoneb 0.5 mg-3 mg/3 ml Soln] each Isosorbide Mononitrate ER [Imdur] 30 mg PO DAILY #30 tab 02/19/24 Pantoprazole [Protonix] 40 mg PO AC-BRKFST #60 tab 02/19/24 QUEtiapine [SEROquel] 12.5 mg PO HS PRN #30 tab 02/19/24 Thiamine [Vitamin B-1] 100 mg PO DAILY #60 tab 02/19/24 Allergies Allergy/AdvReac Type Severity Reaction Status Date / Time lisinopril Allergy Swelling Verified 02/09/24 10:31 OF FACE Review of Systems ROS Statement: Those systems with pertinent positive or pertinent negative responses have been documented in the HPI. ROS Other: All systems not noted in ROS Statement are negative. Past Medical History Past Medical History: Atrial Fibrillation, CVA/TIA, Hyperlipidemia, Hypertension, Osteoarthritis (OA), Vascular Disorder Additional Past Medical History / Comment(s): HEPATITIS UNKNOWN TYPE YEARS AGO. stroke rt eye History of Any Multi-Drug Resistant Organisms: None Reported Past Surgical History: Appendectomy, Back Surgery, Pacemaker Additional Past Surgical History / Comment(s): LEFT LEG- BYPASS, RIGHT LEG BYPASS , BOWEL SURGERY Past Anesthesia/Blood Transfusion Reactions: No Reported Reaction Type of Cardiac Device: Permanent Pacemaker Device Placement Date:: 09/2018 Past Psychological History: Depression Smoking Status: Former smoker Past Alcohol Use History: Daily Past Drug Use History: None Reported - Past Family History Mother Family Medical History: No Reported History Additional Family Medical History / Comment(s): Mother at age 88 from septic shock. Father Family Medical History: Coronary Artery Disease (CAD) Additional Family Medical History / Comment(s): Father at age 94, hx CABG and aortic aneurysm. Brother(s) Family Medical History: No Reported History Additional Family Medical History / Comment(s): . Sister(s) Family Medical History: No Reported History Additional Family Medical History / Comment(s): . Son(s) Family Medical History: No Reported History Additional Family Medical History / Comment(s): . Daughter(s) Family Medical History: No Reported History Additional Family Medical History / Comment(s): . General Exam General appearance: alert, in no apparent distress, anxious Head exam: Present: atraumatic, normocephalic, normal inspection Eye exam: Present: normal appearance, PERRL, EOMI. Absent: scleral icterus, conjunctival injection, periorbital swelling ENT exam: Present: normal exam, mucous membranes dry Neck exam: Present: normal inspection. Absent: tenderness, meningismus, l ymphadenopathy Respiratory exam: Present: normal lung sounds bilaterally. Absent: respiratory distress, wheezes, rales, rhonchi, stridor Cardiovascular Exam: Present: regular rate, normal rhythm, normal heart sounds. Absent: systolic murmur, diastolic murmur, rubs, gallop, clicks GI/Abdominal exam: Present: soft, normal bowel sounds. Absent: distended, tenderness, guarding, rebound, rigid Extremities exam: Present: normal inspection, full ROM, normal capillary refill. Absent: tenderness, pedal edema, joint swelling, calf tenderness Back exam: Present: normal inspection Neurological exam: Present: alert, oriented X3, CN II-XII intact Psychiatric exam: Present: normal affect, normal mood Skin exam: Present: warm, dry, intact, normal color. Absent: rash Course Vital Signs 02/08/24 02/09/24 22:56 03:25 Temperature 97.8 F Pulse Rate 60 60 Respiratory 16 15 Rate Blood Pressure 115/48 115/60 O2 Sat by Pulse 97 97 Oximetry - Reevaluation(s) Reevaluation #1: 02/09/24 02:55 Medical records reviewed Reevaluation #2: 02/09/24 02:55 Patient symptoms are improving Reevaluation #3: 02/09/24 02:55 Patient informed of results and questions answered Reevaluation #4: Was pt. sent in by a medical professional or institution (, PA, MARKET SALES MANAGER, urgent care, hospital, or halfway...) When possible be specific @ -no Did you speak to anyone other than the patient for history (EMS, parent, family, police, friend...)? What history was obtained from this source @ -no Did you review nursing and triage notes (agree or disagree)? Why? @ -agree Are old charts reviewed (outside hosp., previous admission, EMS record, old EKG, old radiological studies, urgent care reports/EKG's, halfway records)? Rep ort findings @ -yes Differential Diagnosis (chest pain, altered mental status, abdominal pain women, abdominal pain men, vaginal bleeding, weakness, fever, dyspnea, syncope, headache, dizziness, GI bleed, back pain, seizure, CVA, palpatations, mental health, musculoskeletal)? @ -prior EKG interpreted by me (3pts min.). @ -yes X-rays interpreted by me (1pt min.). @ -no CT interpreted by me (1pt min.). @ -no U/S interpreted by me (1pt. min.). @ -no What testing was considered but not performed or refused? (CT, X-rays, U/S, labs)? Why? @ -none What meds were considered but not given or refused? Why? @ -none Did you discuss the management of the patient with other professionals (naseem godwin i.eStephany Ocampo, PA, MARKET SALES MANAGER, lab, RT, psych nurse, social and political studies professor, tail trimmer, teacher, contracting officer, bottle caser)? Give summary @ -no Was smoking cessation discussed for >3mins.? @ -no Was critical care preformed (if so, how long)? @ -yes31 Were there social determinants of health that impacted care today? How? (Homelessness, low income, unemployed, alcoholism, drug addiction, transportation, low edu. Level, literacy, decrease access to med. care, senior care, rehab)? @ -none Was there de-escalation of care discussed even if they declined (Discuss DNR or withdrawal of care, Hospice)? DNR status @ -no What co-morbidities impacted this encounter? (DM, HTN, Smoking, COPD, CAD, Cancer, CVA, ARF, Chemo, Hep., AIDS, mental health diagnosis, sleep apnea, morbid obesity)? @ -none Was patient admitted / discharged? Hospital course, mention meds given and route, prescriptions, significant lab abnormalities, going to OR and other pertinent info. @ - 78 male to be admitted for low magnesium low potassium syncopal event weakness and severe diarrhea, patient will admit for IV resuscitation Admitted Undiagnosed new problem with uncertain prognosis? @ -no Drug Therapy requiring intensive monitoring for toxicity (Heparin, Nitro, Insulin, Cardizem)? @ -no Were any procedures done? @ -no Diagnosis/symptom? @ -nausea vomiting diarrhea syncope Acute, or Chronic, or Acute on Chronic? @ -Acute Uncomplicated (without systemic symptoms) or Complicated (systemic symptoms)? @ -Complicated Side effects of treatment? @ -no Exacerbation, Progression, or Severe Exacerbation? @ -exacerbation Poses a threat to life or bodily function? How? (Chest pain, [place], TN, pneumonia, PE, COPD, DKA, ARF, appy, cholecystitis, CVA, Diverticulitis, Homicidal, Suicidal, threat to staff... and all critical care pts) @ -yes extreme of age Reevaluation #5: Differential Syncope: Valvular disease, hypertrophic cardiomyopathy, pulmonary embolism, tamponade, tachycardia, bradycardia, TN, hypovolemia, hemorrhage, dissection, anemia, intracranial hemorrhage, seizure, hypoglycemia, carbon monoxide poisoning, this is not meant to be an all-inclusive list. - Consultations Consultation #1: Spoke with admitting who agrees to admit this patient EKG Findings - EKG Comments: EKG Findings:: EKG is paced 60 QRS 237 QTc 397 - EKG Results: EKG: interpreted by ERMD Medical Decision Making - Medical Decision Making 78 male to be admitted for low magnesium low potassium syncopal event weakness and severe diarrhea, patient will admit for IV resuscitation - Lab Data Result diagrams: 02/18/24 06:53 02/19/24 07:23 Lab Results 02/08/24 02/08/24 02/08/24 Range/Units 23:19 23:19 23:19 WBC 9.0 (3.8-10.6) k/uL RBC 3.56 L (4.30-5.90) m/uL Hgb 12.1 L (13.0-17.5) gm/dL Hct 37.1 L (39.0-53.0) % MCV 104.2 H (80.0-100.0) fL MCH 33.8 (25.0-35.0) pg MCHC 32.5 (31.0-37.0) g/dL RDW 14.6 (11.5-15.5) % Plt Count 231 (150-450) k/uL MPV 8.1 Neutrophils % 79 % Lymphocytes % 9 % Monocytes % 7 % Eosinophils % 3 % Basophils % 0 % Neutrophils # 7.1 (1.3-7.7) k/uL Lymphocytes # 0.8 L (1.0-4.8) k/uL Monocytes # 0.6 (0-1.0) k/uL Eosinophils # 0.3 (0-0.7) k/uL Basophils # 0.0 (0-0.2) k/uL Hypochromasia Slight Macrocytosis Moderate PT 12.7 H (10.0-12.5) sec INR 1.2 H (<1.2) APTT 27.9 (22.0-30.0) sec Sodium 132 L (137-145) mmol/L Potassium 2.0 L* (3.5-5.1) mmol/L Chloride 102 (98-107) mmol/L Carbon Dioxide 16 L (22-30) mmol/L Anion Gap 14 mmol/L BUN 39 H (9-20) mg/dL Creatinine 1.55 H (0.66-1.25) mg/dL Est GFR (CKD-EPI)AfAm 48 (>60 ml/min/1.73 sqM) Est GFR (CKD-EPI)NonAf 42 (>60 ml/min/1.73 sqM) Glucose 129 H (74-99) mg/dL Plasma Lactic Acid Rafa (0.7-2.0) mmol/L Calcium 11.7 H (8.4-10.2) mg/dL Phosphorus 2.4 L (2.5-4.5) mg/dL Magnesium 1.4 L (1.6-2.3) mg/dL Total Bilirubin 1.1 (0.2-1.3) mg/dL AST 38 (17-59) U/L ALT 17 (4-49) U/L Alkaline Phosphatase 67 (38-126) U/L Troponin I (0.000-0.034) ng/mL NT-Pro-B Natriuret Pep 1570 pg/mL Total Protein 6.9 (6.3-8.2) g/dL Albumin 4.0 (3.5-5.0) g/dL TSH 3.160 (0.465-4.680) mIU/L 02/08/24 02/08/24 Range/Units 23:19 23:19 WBC (3.8-10.6) k/uL RBC (4.30-5.90) m/uL Hgb (13.0-17.5) gm/dL Hct (39.0-53.0) % MCV (80.0-100.0) fL MCH (25.0-35.0) pg MCHC (31.0-37.0) g/dL RDW (11.5-15.5) % Plt Count (150-450) k/uL MPV Neutrophils % % Lymphocytes % % Monocytes % % Eosinophils % % Basophils % % Neutrophils # (1.3-7.7) k/uL Lymphocytes # (1.0-4.8) k/uL Monocytes # (0-1.0) k/uL Eosinophils # (0-0.7) k/uL Basophils # (0-0.2) k/uL Hypochromasia Macrocytosis PT (10.0-12.5) sec INR (<1.2) APTT (22.0-30.0) sec Sodium (137-145) mmol/L Potassium (3.5-5.1) mmol/L Chloride (98-107) mmol/L Carbon Dioxide (22-30) mmol/L Anion Gap mmol/L BUN (9-20) mg/dL Creatinine (0.66-1.25) mg/dL Est GFR (CKD-EPI)AfAm (>60 ml/min/1.73 sqM) Est GFR (CKD-EPI)NonAf (>60 ml/min/1.73 sqM) Glucose (74-99) mg/dL Plasma Lactic Acid Rafa 1.5 (0.7-2.0) mmol/L Calcium (8.4-10.2) mg/dL Phosphorus (2.5-4.5) mg/dL Magnesium (1.6-2.3) mg/dL Total Bilirubin (0.2-1.3) mg/dL AST (17-59) U/L ALT (4-49) U/L Alkaline Phosphatase (38-126) U/L Troponin I 0.039 H* (0.000-0.034) ng/mL NT-Pro-B Natriuret Pep pg/mL Total Protein (6.3-8.2) g/dL Albumin (3.5-5.0) g/dL TSH (0.465-4.680) mIU/L - EKG Data -: EKG Interpreted by Me Critical Care Time Critical Care Time: Yes Total Critical Care Time: 31 Disposition Clinical Impression: Vasovagal syncope, Weakness, Hypomagnesemia, Hypokalemia Disposition: ADMITTED IP TO THIS HOSP Condition: Serious Is patient prescribed a controlled substance at d/c from ED?: No Time of Disposition: 03:00
[2024-02-08 23:44] LABS: Basophils % (A) 0 %; Eosinophils # (A) 0.3 k/uL (0-0.7); Eosinophils % (A) 3 %; HCT 37.1 % (39.0-53.0); HGB 12.1 gm/dL (13.0-17.5); Hypochromasia Slight; Lymphocytes # (A) 0.8 k/uL (1.0-4.8); Lymphocytes % (A) 9 %; MCH 33.8 pg (25.0-35.0); MCHC 32.5 g/dL (31.0-37.0); MCV 104.2 fL (80.0-100.0); Macrocytosis Moderate; Mean Platelet Volume 8.1; Monocytes # (A) 0.6 k/uL (0-1.0); Monocytes % (A) 7 %; Neutrophils # (A) 7.1 k/uL (1.3-7.7); Neutrophils % (A) 79 %; Platelet Count 231 k/uL (150-450); RBC 3.56 m/uL (4.30-5.90); RDW 14.6 % (11.5-15.5)
[2024-02-09 00:02] LABS: ALT 17 U/L (4-49); AST 38 U/L (17-59); African American GFR (CKD) 48 (>60 ml/min/1.73 sqM); Alkaline Phosphatase 67 U/L (38-126); Anion Gap 14 mmol/L; Blood Urea Nitrogen 39 mg/dL (9-20); Calcium 11.7 mg/dL (8.4-10.2); Carbon Dioxide 16 mmol/L (22-30); Chloride 102 mmol/L (98-107); Glucose 129 mg/dL (74-99); Magnesium 1.4 mg/dL (1.6-2.3); Non-African American GFR(CKD) 42 (>60 ml/min/1.73 sqM); Phosphorus 2.4 mg/dL (2.5-4.5); Sodium 132 mmol/L (137-145); Total Bilirubin 1.1 mg/dL (0.2-1.3); Total Protein 6.9 g/dL (6.3-8.2)
[2024-02-09 00:11] LABS: NT-Pro-B-Type Natriuretic Pept 1570 pg/mL
[2024-02-09 00:12] LABS: INR 1.2 (<1.2); Partial Thromboplastin Time 27.9 sec (22.0-30.0); Prothrombin Time 12.7 sec (10.0-12.5)
[2024-02-09] MEDS: SODIUM CHLORIDE 0.9% 1,000 ML IV STA ×2 (00:47→04:04)
[2024-02-09] MEDS: POTASSIUM CHLORIDE 20 MEQ in WATER FOR INJECTION 1 100ML.BAG IVPB STA (00:59)
[2024-02-09] MEDS: MAGNESIUM OXIDE 400 MG TAB PO STA ×2 (01:05→01:06)
[2024-02-09] MEDS ORDERED: ONDANSETRON 4 MG/2 ML VIAL IVP PRN (02:53)
[2024-02-09] MEDS ORDERED: NALOXONE 0.4 MG/ML 1 ML VIAL IV PRN (02:53)
[2024-02-09] MEDS ORDERED: LORazepam 1 MG TAB PO PRN ×4 (02:53)
[2024-02-09] MEDS ORDERED: LORazepam 2 MG/ML INJ IV PRN (02:53)
[2024-02-09] MEDS ORDERED: LORazepam 0.5 MG TAB PO PRN (02:53)
[2024-02-09] MEDS: POTASSIUM BICARBONATE/CIT AC 20 MEQ TABLET.EFF PO ONE ×2 (03:27)
[2024-02-09] MEDS: MAGNESIUM SULFATE-D5W PMX 1 GM in DEXTROSE/WATER 1 100ML.BAG IVPB ONE (03:27)
[2024-02-09] MEDS: SODIUM CHLORIDE 0.9% 1,000 ML IV SCH (04:07)
[2024-02-09] MEDS: FOLIC ACID 1 MG TAB PO SCH (07:39)
[2024-02-09] MEDS: MULTIVITAMINS, THERA 1 EACH TAB PO SCH (07:39)
[2024-02-09 08:18] LABS: Basophils % (A) 0 %; Eosinophils # (A) 0.2 k/uL (0-0.7); Eosinophils % (A) 3 %; HGB 11.3 gm/dL (13.0-17.5); Lymphocytes # (A) 0.8 k/uL (1.0-4.8); Lymphocytes % (A) 10 %; MCH 34.2 pg (25.0-35.0); MCHC 32.4 g/dL (31.0-37.0); MCV 105.6 fL (80.0-100.0); Macrocytosis Moderate; Mean Platelet Volume 8.4; Monocytes # (A) 0.6 k/uL (0-1.0); Monocytes % (A) 8 %; Neutrophils % (A) 78 %; Platelet Count 220 k/uL (150-450); RBC 3.31 m/uL (4.30-5.90); RDW 15.1 % (11.5-15.5); WBC 7.8 k/uL (3.8-10.6)
[2024-02-09 08:54] LABS: ALT 17 U/L (4-49); AST 37 U/L (17-59); African American GFR (CKD) 58 (>60 ml/min/1.73 sqM); Albumin 3.6 g/dL (3.5-5.0); Alkaline Phosphatase 54 U/L (38-126); Anion Gap 7 mmol/L; Blood Urea Nitrogen 37 mg/dL (9-20); Calcium 10.9 mg/dL (8.4-10.2); Carbon Dioxide 26 mmol/L (22-30); Chloride 104 mmol/L (98-107); Glucose 111 mg/dL (74-99); Magnesium 1.6 mg/dL (1.6-2.3); Non-African American GFR(CKD) 50 (>60 ml/min/1.73 sqM); Sodium 137 mmol/L (137-145); Total Protein 6.4 g/dL (6.3-8.2)
[2024-02-09 09:00] LABS: Potassium 2.7 mmol/L (3.5-5.1)
[2024-02-09] MEDS ORDERED: Potassium Replacement Protocol 1 EACH MISC MISCELLANE PRN (09:22)
[2024-02-09] MEDS: POTASSIUM CHLORIDE ER 20 MEQ TAB.ER PO SCH (09:35)
[2024-02-09] MEDS ORDERED: ASPIRIN 325 MG TAB PO PRN (10:08)
[2024-02-09] MEDS: POTASSIUM CHLORIDE ER 20 MEQ TAB.ER PO ONE (11:32)
[2024-02-09] MEDS: MAGNESIUM SULFATE-D5W PMX 1 GM in DEXTROSE/WATER 1 100ML.BAG IVPB SCH (12:38)
[2024-02-09] MEDS: LACTATED RINGERS 1,000 ML IV SCH (12:38)
--- NOTE | 2024-02-09 14:37 | P.HPIM ---
History of Present Illness H&P Date: 02/09/24 Patient is a 78-year-old male with a history of A-fib, CVA/TIA, former smoker, vascular disorder (with left and right leg vessel bypass) who came in to our ED due to syncope. Patient reports that it occurred last night where in he "blacked out'. He also reports 3 weeks ago, he began to have diarrhea watery in consistency with a brownish color without any blood occurring once a day for 3 to 5 days. Frequency of diarrheal episodes increased in the coming days. He also reports he started to have vomiting 2 weeks ago that was watery, brownish in color, with no blood and no undigested food. He denies any subjective fevers, cough, abdominal pain, jaundice, headaches, seizures, recent travel, changes in diet, sweats, and weight loss. EKG shows paced rhythm at a rate of 60 QTc of 397. ED documentation reviewed. Review of systems: Pertinent positives and negatives as discussed in HPI, a complete review of systems was performed and all other systems are negative. Social history: Tobacco: Quit at the age of 38 with a [id number] history Alcohol: Drinks 6 beers daily last drink was 6 weeks ago Recreational drugs: No history of illicit drug use Travel: No history of recent travel Occupation: Retired Physical examination: Vital signs reviewed General: non toxic, no distress, appears at stated age, normal weight Derm: no unusual rashes/lesions, warm Head: atraumatic, normocephalic, symmetric Eyes: EOMI, no lid lag, anicteric sclera, pupils equal round reactive to light ENT: Nose and ears atraumatic Neck: No cervical lymphadenopathy, trachea midline, supple Mouth: no lip lesion, mucus membranes moist Cardiovascular: S1S2 reg, grade 3/6 holosystolic murmur loudest at second right ICS Lungs: CTA bilateral, no rhonchi, no rales, no accessory muscle use Abdominal: soft, nontender to palpation, no guarding, no hepatomegaly, no splenomegaly, normal bowel sounds Ext: muscle strength 5 out of 5 in all 4 extremities grossly, no gross muscle atrophy, no contractures, positive dorsalis pedis pulse bilateral, no edema Neuro: CN II-XI grossly intact, no gross focal neuro deficits Psych: Alert, oriented, appropriate affect and mood Assessment/Plan: #. Syncope likely orthostatic due to dehydration -Continue with fluid replacement with 0.9 NaCl 130 cc/h -Follow-up C. difficile PCR results -Stool analysis -Hold antihypertensive medications -Monitor CBC, CMP, magnesium, and phosphorus #. Hypokalemia and hypomagnesemia likely due to diarrhea and vomiting Potassium was 2.0 and magnesium was 1.4 on admission -Continue with potassium replacement protocol -Hold furosemide -Monitor magnesium, CMP, and phosphorus levels #. Prerenal azotemia likely due to above, unknown baseline of creatinine Patient is currently asymptomatic and has no history of CKD -Will monitor for now #. Elevated troponins, likely due to increased demand (type II) Patient is not symptomatic and stable -Trend troponin x1 #. CHF, in moderate exacerbation (EF 45-50% echo in 09/2018) patient is asymptomatic, and actually fluid depleted, pro BNP of 1570 Chronic conditions: Osteoarthritis, hypertension, hyperlipidemia, CVA/TIA, vascular disorder, pacemaker placement, former smoker, A-fib DVT prophylaxis: On Eliquis GI prophylaxis: Pepcid 20 mg PO OD The patient is admitted with an anticipated greater than than 2 midnight stay for evaluation of syncope and repletion of electrolytes CODE STATUS: Full Discussed with: Patient Anticipated discharge place: Home Dr. Amando MD I have performed a history and physical examination and medical decision making of this patient, discussed the same with the the resident, and agree with the assessment and plan as written. I performed brief physical exam. Past Medical History Past Medical History: Atrial Fibrillation, CVA/TIA, Hyperlipidemia, Hypertension, Osteoarthritis (OA), Vascular Disorder Additional Past Medical History / Comment(s): HEPATITIS UNKNOWN TYPE YEARS AGO. stroke rt eye History of Any Multi-Drug Resistant Organisms: None Reported Past Surgical History: Appendectomy, Back Surgery, Pacemaker Additional Past Surgical History / Comment(s): LEFT LEG- BYPASS, RIGHT LEG BYPASS , left carotid stent, BOWEL SURGERY Past Anesthesia/Blood Transfusion Reactions: No Reported Reaction Type of Cardiac Device: Permanent Pacemaker Device Placement Date:: 09/2018 Past Psychological History: Depression Additional Psychological History / Comment(s): STATES DEPRESSED WITH HEALTH ISSUES Smoking Status: Former smoker Past Alcohol Use History: Daily Additional Past Alcohol Use History / Comment(s): Patient was smoker 2 packs per day since he was 11 years old and quit at age 38. He states he drinks 3-6 beers per day. He lives at home with his . Past Drug Use History: None Reported - Past Family History Mother Family Medical History: No Reported History Additional Family Medical History / Comment(s): Mother at age 88 from septic shock. Father Family Medical History: Coronary Artery Disease (CAD) Additional Family Medical History / Comment(s): Father at age 94, hx triple vessel diseaseCABG and aortic aneurysm. Brother(s) Family Medical History: No Reported History Additional Family Medical History / Comment(s): . Sister(s) Family Medical History: No Reported History Additional Family Medical History / Comment(s): . Son(s) Family Medical History: No Reported History Additional Family Medical History / Comment(s): . Daughter(s) Family Medical History: No Reported History Additional Family Medical History / Comment(s): . Medications and Allergies Home Medications Medication Instructions Recorded Confirmed Type Gabapentin [Neurontin] 300 mg PO BID 02/27/18 02/09/24 History allopurinoL [Zyloprim] 300 mg PO DAILY 02/27/18 02/09/24 History Ascorbic Acid [Vitamin C] 1,000 mg PO DAILY 10/02/18 02/09/24 History Multivitamins, Thera [Multivitamin 1 tab PO DAILY 10/02/18 02/09/24 History (formulary)] Apixaban [Eliquis] 5 mg PO BID 05/29/22 02/09/24 History Fenofibrate Nanocrystallized 145 mg PO DAILY 05/29/22 02/09/24 History [Fenofibrate] Furosemide [Lasix] 20 mg PO BID 08/30/22 02/09/24 History Cholecalciferol [Vitamin D3 (25 50 mcg PO DAILY 02/09/24 02/09/24 History Mcg = 1000 Iu)] Diphenox-Atrop 2.5-0.025 mg 2 tab PO QID PRN 02/09/24 02/09/24 History [Lomotil] Escitalopram [Lexapro] 20 mg PO DAILY 02/09/24 02/09/24 History Immune Support Complex 75mg 2 tab PO DAILY 02/09/24 02/09/24 History Metoprolol Tartrate [Lopressor] 100 mg PO BID 02/09/24 02/09/24 History Pravastatin Sodium [Pravachol] 40 mg PO DAILY 02/09/24 02/09/24 History Allergies Allergy/AdvReac Type Severity Reaction Status Date / Time lisinopril Allergy Swelling Verified 02/09/24 10:31 OF FACE Physical Exam Vitals: Vital Signs Temp Pulse Pulse Resp BP BP Pulse Ox 02/09/24 07:29 98.1 F 59 L 16 126/44 95 02/09/24 04:30 98.3 F 55 L 18 112/54 96 02/09/24 04:10 97.8 F 59 L 16 117/52 99 02/09/24 03:25 60 15 115/60 97 02/08/24 22:56 97.8 F 60 16 115/48 97 Intake and Output 02/08/24 02/09/24 02/09/24 22:59 06:59 14:59 Intake Total 497 Balance 497 Intake: Intake, IV Titration 260 Amount Sodium Chloride 0.9% 1, 260 000 ml @ 130 mls/hr IV . [id number] [facility] Rx#:[id number] Oral 237 Other: Voiding Method Urinal Diaper Weight 99.79 kg 72.72 kg Results CBC & Chem 7: 02/10/24 09:25 02/10/24 09:25 Labs: Abnormal Lab Results - Last 24 Hours (Table) 02/08/24 02/08/24 02/08/24 Range/Units 23:19 23:19 23:19 RBC 3.56 L (4.30-5.90) m/uL Hgb 12.1 L (13.0-17.5) gm/dL Hct 37.1 L (39.0-53.0) % MCV 104.2 H (80.0-100.0) fL Lymphocytes # 0.8 L (1.0-4.8) k/uL PT 12.7 H (10.0-12.5) sec INR 1.2 H (<1.2) Sodium 132 L (137-145) mmol/L Potassium 2.0 L* (3.5-5.1) mmol/L Carbon Dioxide 16 L (22-30) mmol/L BUN 39 H (9-20) mg/dL Creatinine 1.55 H (0.66-1.25) mg/dL Glucose 129 H (74-99) mg/dL Calcium 11.7 H (8.4-10.2) mg/dL Phosphorus 2.4 L (2.5-4.5) mg/dL Magnesium 1.4 L (1.6-2.3) mg/dL Troponin I (0.000-0.034) ng/mL 02/08/24 02/09/24 Range/Units 23:19 07:50 RBC 3.31 L (4.30-5.90) m/uL Hgb 11.3 L (13.0-17.5) gm/dL Hct 35.0 L (39.0-53.0) % MCV 105.6 H (80.0-100.0) fL Lymphocytes # 0.8 L (1.0-4.8) k/uL PT (10.0-12.5) sec INR (<1.2) Sodium (137-145) mmol/L Potassium (3.5-5.1) mmol/L Carbon Dioxide (22-30) mmol/L BUN (9-20) mg/dL Creatinine (0.66-1.25) mg/dL Glucose (74-99) mg/dL Calcium (8.4-10.2) mg/dL Phosphorus (2.5-4.5) mg/dL Magnesium (1.6-2.3) mg/dL Troponin I 0.039 H* (0.000-0.034) ng/mL Thrombosis Risk Factor Assmnt - Choose All That Apply Any of the Below Risk Factors Present?: No Other Risk Factors: Yes Each Risk Factor Represents 3 Points: Age 75 years or older Other congenital or acquired thrombophilia - If yes, enter type in comment: No Thrombosis Risk Factor Assessment Total Risk Factor Score: 3 Thrombosis Risk Factor Assessment Level: Moderate Risk
[2024-02-09] MEDS ORDERED: GABAPENTIN 300 MG CAP PO SCH (21:00)
[2024-02-09] MEDS: GABAPENTIN 100 MG CAP PO SCH (21:31)
[2024-02-09] MEDS: APIXABAN 5 MG TAB PO SCH (21:31)
[2024-02-10] MEDS ORDERED: amLODIPine 10 MG TAB PO SCH (09:00)
[2024-02-10] MEDS: DIPHENOX-ATROP 2.5-0.025 MG 1 EACH TAB PO PRN (09:25)
[2024-02-10] MEDS: FAMOTIDINE 20 MG TAB PO SCH (09:25)
[2024-02-10] MEDS: allopurinoL 300 MG TAB PO SCH (09:25)
[2024-02-10] MEDS: ASCORBIC ACID 500 MG TAB PO SCH (09:25)
[2024-02-10] MEDS: METOPROLOL TARTRATE 50 MG TAB PO SCH (09:26)
[2024-02-10] MEDS: CHOLECALCIFEROL 25 MCG (1000 IU) TABLET PO SCH (09:26)
[2024-02-10] MEDS: MULTIVITAMINS, THERA 1 EACH TAB PO SCH (09:26)
[2024-02-10] MEDS: PRAVASTATIN SODIUM 40 MG TAB PO SCH (09:26)
[2024-02-10] MEDS: FENOFIBRATE 160 MG TAB PO SCH (09:26)
[2024-02-10] MEDS: ESCITALOPRAM 20 MG TAB PO SCH (09:26)
[2024-02-10] MEDS: THIAMINE 100 MG TAB PO SCH (09:26)
[2024-02-10 09:38] LABS: Basophils % (A) 0 %; Eosinophils # (A) 0.2 k/uL (0-0.7); Eosinophils % (A) 3 %; HCT 34.3 % (39.0-53.0); HGB 11.2 gm/dL (13.0-17.5); Hypochromasia Moderate; Lymphocytes # (A) 0.5 k/uL (1.0-4.8); Lymphocytes % (A) 9 %; MCH 34.5 pg (25.0-35.0); MCHC 32.7 g/dL (31.0-37.0); MCV 105.4 fL (80.0-100.0); Macrocytosis Moderate; Mean Platelet Volume 8.7; Monocytes # (A) 0.5 k/uL (0-1.0); Monocytes % (A) 10 %; Neutrophils % (A) 75 %; Platelet Count 213 k/uL (150-450); RBC 3.25 m/uL (4.30-5.90); WBC 5.3 k/uL (3.8-10.6)
[2024-02-10 10:20] LABS: ALT 18 U/L (4-49); AST 40 U/L (17-59); African American GFR (CKD) >90 (>60 ml/min/1.73 sqM); Albumin 3.4 g/dL (3.5-5.0); Alkaline Phosphatase 56 U/L (38-126); Anion Gap 8 mmol/L; Blood Urea Nitrogen 24 mg/dL (9-20); Calcium 10.4 mg/dL (8.4-10.2); Carbon Dioxide 22 mmol/L (22-30); Chloride 107 mmol/L (98-107); Glucose 97 mg/dL (74-99); Magnesium 1.8 mg/dL (1.6-2.3); Non-African American GFR(CKD) 80 (>60 ml/min/1.73 sqM); Sodium 137 mmol/L (137-145); Total Bilirubin 1.1 mg/dL (0.2-1.3); Total Protein 6.2 g/dL (6.3-8.2)
[2024-02-10 10:30] LABS: Potassium 2.3 mmol/L (3.5-5.1)
[2024-02-10 10:32] LABS: Phosphorus 0.9 mg/dL (2.5-4.5)
[2024-02-10] MEDS ORDERED: Potassium Replacement Protocol 1 EACH MISC MISCELLANE PRN (11:04)
[2024-02-10] MEDS: POTASSIUM CHLORIDE 10 MEQ in WATER FOR INJECTION 1 100ML.BAG IVPB STA (11:31)
[2024-02-10] MEDS ORDERED: Phosphorus Replacement Protoco 1 EACH MISC MISCELLANE PRN (11:51)
[2024-02-10] MEDS: LACTOBACILLUS ACIDOPHILUS/PECT 1 EACH CAPSULE PO SCH (12:32)
[2024-02-10] MEDS: POTAS-SOD-PHOS 278-164-250 MG 1 EACH PACKET PO SCH (12:32)
[2024-02-10] MEDS: POTASSIUM CHLORIDE ER 20 MEQ TAB.ER PO STA ×2 (12:32→22:47)
[2024-02-10] MEDS: POTASSIUM CHLORIDE 10 MEQ in WATER FOR INJECTION 1 100ML.BAG IVPB SCH (12:33)
--- NOTE | 2024-02-10 13:06 | P.PN ---
Subjective Progress Note Date: 02/10/24 Patient is seen awake and alert at bedside. Family also at bedside. Reported to have episodes of diarrhea overnight that is watery, brown in color. Family reports increased confusion. Denies any blood in his stool, vomiting, loss of consciousness, seizures, headaches, dizziness. Review of systems: Pertinent positives and negatives as discussed in HPI, a complete review of systems was performed and all other systems are negative. Physical examination: Vital signs reviewed General: non toxic, not distress, appears at stated age, normal weight Derm: no unusual rashes/lesions, warm Head: atraumatic, normocephalic, symmetric Eyes: EOMI, no lid lag, anicteric sclera, pupils equal round reactive to light ENT: Nose and ears atraumatic Neck: No cervical lymphadenopathy, trachea midline, supple Mouth: no lip lesion, mucus membranes moist Cardiovascular: irregularly irregular, 3/6 murmur loudest at second right ICS Lungs: CTA bilateral, no rhonchi, no rales, no accessory muscle use Abdominal: soft, nontender to palpation, no guarding Ext: muscle strength 5 out of 5 in all 4 extremities grossly, no gross muscle atrophy, no contractures, positive dorsalis pedis pulse bilateral, no edema Neuro: CN II-XI grossly intact, no gross focal neuro deficits Psych: Alert, oriented, appropriate affect and mood Assessment/Plan: #. Syncope likely orthostatic due to chronic diarrhea, resolving Negative C. difficile PCR results Follow up stool analysis Hold antihypertensive medications Monitor CBC, CMP, magnesium, and phosphorus at AM #. Hypokalemia, due to chronic diarrhea Potassium at 2.3. Patient reports episodes of diarrhea overnight Replete potassium to meet goal of 60 mEq Check Potassium at 1600 today Continue with potassium replacement per protocol CT abdomen and pelvis w/o contrast Stool culture Consult ID for chronic diarrhea Consult Surgery for further assessment of chronic diarrhea #. Hypophosphatemia, due to chronic diarrhea Phosphorus at 0.9. Patient still reports having episodes of diarrhea with increased confusion. Replete phosphorus with Neutra-Phos packet p.o. every 4 hours Placed on phosphorus replacement protocol Check phosphorus in a.m. #. Macrocytosis likely due to dehydration MCV at 105.4 Serum B12 and folate levels # Hypomagnesemia likely due to diarrhea and vomiting, resolved Magnesium 1.8 today #. Prerenal azotemia likely due to above, unknown baseline of creatinine Patient is currently asymptomatic and has no history of CKD Will monitor for now #. Elevated troponins, likely due to increased demand (type II), resolved Patient is not symptomatic and stable. troponin trend downward at 0.031 #. CHF, in moderate exacerbation (EF 45-50% echo in 09/2018) patient is asymptomatic, and actually fluid depleted, pro BNP of 1570 Chronic conditions: Osteoarthritis, hypertension, hyperlipidemia, CVA/TIA, vascular disorder, pacemaker placement, former smoker, A-fib Attestation I have seen and examined this patient with my resident , discussed the same with the resident/RENÉ, and agree with the dictator's assessment and plan as written Dr. Srikanth lau Objective - Vital Signs Vital signs: Vital Signs Temp 97.9 F 02/10/24 04:00 Pulse 59 L 02/10/24 04:00 Resp 18 02/10/24 04:00 BP 145/48 02/10/24 04:00 Pulse Ox 96 02/10/24 04:00 FiO2 Intake & Output 02/09/24 02/10/24 02/10/24 18:59 06:59 18:59 Intake Total 240 20 Balance 240 20 Weight 68.1 kg Intake: IV 20 Invasive Line 2 10 Invasive Line 3 10 Oral 240 Other: Voiding Method Urinal Toilet Diaper Diaper # Voids 1 # Bowel Movements 1 - Labs CBC & Chem 7: 02/10/24 09:25 02/11/24 06:44 Labs: Abnormal Lab Results - Last 24 Hours (Table) 02/09/24 02/09/24 Range/Units 07:50 07:50 RBC 3.31 L (4.30-5.90) m/uL Hgb 11.3 L (13.0-17.5) gm/dL Hct 35.0 L (39.0-53.0) % MCV 105.6 H (80.0-100.0) fL Lymphocytes # 0.8 L (1.0-4.8) k/uL Potassium 2.7 L* (3.5-5.1) mmol/L BUN 37 H (9-20) mg/dL Creatinine 1.34 H (0.66-1.25) mg/dL Glucose 111 H (74-99) mg/dL Calcium 10.9 H (8.4-10.2) mg/dL
--- NOTE | 2024-02-10 13:50 | CT ---
EXAMINATION TYPE: CT abdomen pelvis wo con DATE OF EXAM: 02/10/2024 HISTORY: Acute diarrhea CT DLP: 517.2 mGycm. Automated Exposure Control for Dose Reduction was Utilized. TECHNIQUE: CT scan of the abdomen and pelvis is performed without oral or IV contrast. COMPARISON: 09/11/2015 FINDINGS: Within the limitations of a non-contrast study, the following observations are made. LUNG BASES: Bibasilar atelectasis. The heart is enlarged and there is mitral annular calcification. C alcification near the aortic valve. Cardiac leads partially included in the [id number].. LIVER/GB: Tiny calcification within the proximal common bile duct measuring 1 mm not excluded. No CT evidence of cholecystitis. PANCREAS: No significant abnormality is seen. SPLEEN: No significant abnormality is seen. ADRENALS: No significant abnormality is seen. KIDNEYS: No significant abnormality is seen. Calcification centrally within the left kidney is most t ypical of vascular calcification. BOWEL: Small hiatal hernia. Fluid is seen throughout the colon which could be related to patient's re ported history of diarrhea. No acute inflammatory changes. No evidence of obstruction. Appendix not s een with certainty. LYMPH NODES: No greater than 1cm abdominal or pelvic lymph nodes are appreciated. OSSEOUS STRUCTURES: Severe compression fracture L1 with retropulsion similar to prior exam. Evidence of vertebroplasty. Postsurgical changes are stable. Multilevel degenerative disc disease and facet ar thropathy. Suspect multilevel foraminal encroachment and canal stenosis.. OTHER: Severe atherosclerotic change of the aorta and iliac vasculature. SMA severe atherosclerotic d isease. Eccentric plaque involving the infrarenal aorta with area of linear calcifications stable fro m prior CT scan lumbar spine 08/02/2022 appears chronic. Suspect a short segmental occlusion of the pr oximal left common iliac artery. Tiny fat-containing periumbilical and inguinal hernia. Small fat-con taining anterior abdominal wall hernia. IMPRESSION: 1. There are fluid-filled bowel loops including the colon and rectum correlate for diarrhea. No acute inflammatory changes. 2. Severe atherosclerotic change including the mesenteric vasculature which would put the patient at risk for ischemic changes. Consider correlation with lactic acid. 3. Small hiatal hernia.
--- NOTE | 2024-02-10 15:03 | P.GSCN ---
History of Present Illness Consult date: 02/10/24 History of present illness: CHIEF COMPLAINT: Weakness HISTORY OF PRESENT ILLNESS: This is a 78-year-old male with a known history of chronic diarrhea over the last 1 to 2 years. Patient reports over the last 5 weeks he has had another flareup of his diarrhea. He has been having multiple watery stools. He reports no blood in the stools. He also was having a few ep isodes of vomiting at home. Patient reports having diarrhea as soon as he eats. He reports decrease in appetite. Denies any abdominal pain. Last colonoscopy was in 2021 and reported as normal. Patient denies any recent traveling. Denies any sick contacts. Initial stool for C. difficile is negative. Stool studies are pending. CT scan abdomen pelvis reported no acute inflammation. Did reveal evidence of diarrhea. Patient also has a history of irritable bowel syndrome. He reports being seen by GI service and had been taking Lomotil without any improvement. PAST MEDICAL HISTORY: Atrial Fibrillation, CVA/TIA, Hyperlipidemia, Hypertension, Osteoarthritis (OA), Vascular Disorder, HEPATITIS UNKNOWN TYPE YEARS AGO. stroke rt eye PAST SURGICAL HISTORY: Appendectomy, exploratory laparotomy with lysis of adhesions for small bowel obstruction, back Surgery, Pacemaker, LEFT LEG- BYPASS, RIGHT LEG BYPASS, pacemaker MEDICATIONS: See below ALLERGIES: See below SOCIAL HISTORY: Daily EtOH use, former smoker REVIEW OF SYSTEMS: CONSTITUTIONAL: Denies fever or chills. HEENT: Denies blurred vision, vision changes, or eye pain. Denies hemoptysis CARDIOVASCULAR: Denies chest pain or pressure. RESPIRATORY: No shortness of breath. GASTROINTESTINAL: See HPI for pertinent findings HEMATOLOGIC: Denies bleeding disorders. GENITOURINARY: Denies any blood in urine or increased urinary frequency. SKIN: Denies pruitis. Denies rash. PHYSICAL EXAM: VITAL SIGNS: Reviewed GENERAL: Well-developed in no acute distress. HEENT: No sclera icterus. Extraocular movements grossly intact. Moist buccal mucosa. Head is atraumatic, normocephalic. No nasal drainage. ABDOMEN: Soft. Nondistended. Nontender NEUROLOGIC: Awake and alert. Pleasantly confused LABORATORY DATA: WBC 5.3 Hgb 11.2 platelets 213 Na 137 K 2.3 creatinine 1.55 down to 0.90 Magnesium 1.8 Stool for C. difficile negative Lactic acid 1.5 Stool cultures pending IMAGING: CT scan abdomen pelvis reports there are fluid-filled loops including the colon and rectum correlate for diarrhea. No acute inflammatory changes. Severe atherosclerotic change including the mesenteric vasculature which would put the patient at risk for ischemic changes. Consider correlation with lactic acid. Small hiatal hernia. ASSESSMENT: 1. Diarrhea with history of chronic diarrhea 2. Fall with possible syncopal episode 3. Weakness 4. Hypokalemia, hypomagnesemia and hypomagnesemia 5. Acute kidney injury with dehydration PLAN: -Patient scheduled for colonoscopy on , 02/12/[address] Sarkar -Placed Eliquis on hold for procedure -Start clear liquid diet tomorrow -Start GoLytely bowel prep tomorrow -Continue to correct electrolytes Thank you for this consultation Physician Head Esthetician note has been reviewed by physician. Signing provider agrees with the documented findings, assessment, and plan of care. Past Medical History Past Medical History: Atrial Fibrillation, CVA/TIA, Hyperlipidemia, Hypertension, Osteoarthritis (OA), Vascular Disorder Additional Past Medical History / Comment(s): HEPATITIS UNKNOWN TYPE YEARS AGO. stroke rt eye History of Any Multi-Drug Resistant Organisms: None Reported Past Surgical History: Appendectomy, Back Surgery, Pacemaker Additional Past Surgical History / Comment(s): LEFT LEG- BYPASS, RIGHT LEG BYPASS , left carotid stent, BOWEL SURGERY Past Anesthesia/Blood Transfusion Reactions: No Reported Reaction Type of Cardiac Device: Permanent Pacemaker Device Placement Date:: 09/2018 Past Psychological History: Depression Additional Psychological History / Comment(s): STATES DEPRESSED WITH HEALTH I SSUES Smoking Status: Former smoker Past Alcohol Use History: Daily Additional Past Alcohol Use History / Comment(s): Patient was smoker 2 packs per day since he was 11 years old and quit at age 38. He states he drinks 3-6 beers per day. He lives at home with his . Past Drug Use History: None Reported - Past Family History Mother Family Medical History: No Reported History Additional Family Medical History / Comment(s): Mother at age 88 from septic shock. Father Family Medical History: Coronary Artery Disease (CAD) Additional Family Medical History / Comment(s): Father at age 94, hx triple vessel diseaseCABG and aortic aneurysm. Brother(s) Family Medical History: No Reported History Additional Family Medical History / Comment(s): . Sister(s) Family Medical History: No Reported History Additional Family Medical History / Comment(s): . Son(s) Family Medical History: No Reported History Additional Family Medical History / Comment(s): . Daughter(s) Family Medical History: No Reported History Additional Family Medical History / Comment(s): . Medications and Allergies Home Medications Medication Instructions Recorded Confirmed Type Gabapentin [Neurontin] 300 mg PO BID 02/27/18 02/09/24 History allopurinoL [Zyloprim] 300 mg PO DAILY 02/27/18 02/09/24 History Ascorbic Acid [Vitamin C] 1,000 mg PO DAILY 10/02/18 02/09/24 History Multivitamins, Thera [Multivitamin 1 tab PO DAILY 10/02/18 02/09/24 History (formulary)] Apixaban [Eliquis] 5 mg PO BID 05/29/22 02/09/24 History Fenofibrate Nanocrystallized 145 mg PO DAILY 05/29/22 02/09/24 History [Fenofibrate] Furosemide [Lasix] 20 mg PO BID 08/30/22 02/09/24 History Cholecalciferol [Vitamin D3 (25 50 mcg PO DAILY 02/09/24 02/09/24 History Mcg = 1000 Iu)] Diphenox-Atrop 2.5-0.025 mg 2 tab PO QID PRN 02/09/24 02/09/24 History [Lomotil] Escitalopram [Lexapro] 20 mg PO DAILY 02/09/24 02/09/24 History Immune Support Complex 75mg 2 tab PO DAILY 02/09/24 02/09/24 History Metoprolol Tartrate [Lopressor] 100 mg PO BID 02/09/24 02/09/24 History Pravastatin Sodium [Pravachol] 40 mg PO DAILY 02/09/24 02/09/24 History Allergies Allergy/AdvReac Type Severity Reaction Status Date / Time lisinopril Allergy Swelling Verified 02/09/24 10:31 OF FACE Surgical - Exam Vital Signs Temp Pulse Resp BP Pulse Ox 97.8 F 60 16 115/48 97 02/08/24 22:56 02/08/24 22:56 02/08/24 22:56 02/08/24 22:56 02/08/24 22:56 Results - Labs 02/10/24 09:25 02/10/24 09:25 Abnormal Lab Results - Last 24 Hours (Table) 02/10/24 02/10/24 Range/Units 09:25 09:25 RBC 3.25 L (4.30-5.90) m/uL Hgb 11.2 L (13.0-17.5) gm/dL Hct 34.3 L (39.0-53.0) % MCV 105.4 H (80.0-100.0) fL Lymphocytes # 0.5 L (1.0-4.8) k/uL Potassium 2.3 L* (3.5-5.1) mmol/L BUN 24 H (9-20) mg/dL Calcium 10.4 H (8.4-10.2) mg/dL Phosphorus 0.9 L* (2.5-4.5) mg/dL Total Protein 6.2 L (6.3-8.2) g/dL Albumin 3.4 L (3.5-5.0) g/dL Diabetes panel 02/10/24 Range/Units 09:25 Sodium 137 (137-145) mmol/L Potassium 2.3 L* (3.5-5.1) mmol/L Chloride 107 (98-107) mmol/L Carbon Dioxide 22 (22-30) mmol/L BUN 24 H (9-20) mg/dL Creatinine 0.90 (0.66-1.25) mg/dL Glucose 97 (74-99) mg/dL Calcium 10.4 H (8.4-10.2) mg/dL AST 40 (17-59) U/L ALT 18 (4-49) U/L Alkaline Phosphatase 56 (38-126) U/L Total Protein 6.2 L (6.3-8.2) g/dL Albumin 3.4 L (3.5-5.0) g/dL Calcium panel 02/10/24 Range/Units 09:25 Calcium 10.4 H (8.4-10.2) mg/dL Phosphorus 0.9 L* (2.5-4.5) mg/dL Albumin 3.4 L (3.5-5.0) g/dL Pituitary panel 02/10/24 Range/Units 09:25 Sodium 137 (137-145) mmol/L Potassium 2.3 L* (3.5-5.1) mmol/L Chloride 107 (98-107) mmol/L Carbon Dioxide 22 (22-30) mmol/L BUN 24 H (9-20) mg/dL Creatinine 0.90 (0.66-1.25) mg/dL Glucose 97 (74-99) mg/dL Calcium 10.4 H (8.4-10.2) mg/dL Adrenal panel 02/10/24 Range/Units 09:25 Sodium 137 (137-145) mmol/L Potassium 2.3 L* (3.5-5.1) mmol/L Chloride 107 (98-107) mmol/L Carbon Dioxide 22 (22-30) mmol/L BUN 24 H (9-20) mg/dL Creatinine 0.90 (0.66-1.25) mg/dL Glucose 97 (74-99) mg/dL Calcium 10.4 H (8.4-10.2) mg/dL Total Bilirubin 1.1 (0.2-1.3) mg/dL AST 40 (17-59) U/L ALT 18 (4-49) U/L Alkaline Phosphatase 56 (38-126) U/L Total Protein 6.2 L (6.3-8.2) g/dL Albumin 3.4 L (3.5-5.0) g/dL
[2024-02-10] MEDS: POTASSIUM CHLORIDE ER 20 MEQ TAB.ER PO SCH (18:51)
[2024-02-11] MEDS: POTASSIUM CHLORIDE ER 20 MEQ TAB.ER PO SCH ×2 (02:00→10:38)
[2024-02-11] MEDS: QUEtiapine 25 MG TAB PO PRN (02:00)
[2024-02-11] MEDS: LORazepam 2 MG/ML INJ IV PRN ×2 (03:56→20:23)
[2024-02-11 07:12] LABS: ALT 19 U/L (4-49); AST 45 U/L (17-59); African American GFR (CKD) >90 (>60 ml/min/1.73 sqM); Alkaline Phosphatase 50 U/L (38-126); Anion Gap 8 mmol/L; Blood Urea Nitrogen 19 mg/dL (9-20); Calcium 10.5 mg/dL (8.4-10.2); Carbon Dioxide 15 mmol/L (22-30); Chloride 115 mmol/L (98-107); Glucose 77 mg/dL (74-99); Magnesium 1.6 mg/dL (1.6-2.3); Non-African American GFR(CKD) 88 (>60 ml/min/1.73 sqM); Phosphorus 1.1 mg/dL (2.5-4.5); Potassium 3.5 mmol/L (3.5-5.1); Sodium 138 mmol/L (137-145); Total Bilirubin 1.1 mg/dL (0.2-1.3); Total Protein 6.2 g/dL (6.3-8.2)
[2024-02-11 07:33] LABS: Albumin 3.5 g/dL (3.5-5.0)
[2024-02-11] MEDS ORDERED: hydrALAZINE HCL 20 MG/ML 1 ML VIAL IVP PRN (09:34)
[2024-02-11] MEDS ORDERED: Potassium Replacement Protocol 1 EACH MISC MISCELLANE PRN (10:38)
--- NOTE | 2024-02-11 10:48 | P.CONS ---
History of Present Illness - Reason for Consult Consult date: 02/10/24 Diarrhea Requesting physician: Varsha Choi - Chief Complaint Diarrhea x few weeks - History of Present Illness Patient is a 78-year-old male with a past medical history significant for atrial fibrillation CVA TIA hyperlipidemia hypertension osteoarthritis martita ent presenting to the hospital with diarrhea that has been chronic for him however over the last 5 weeks the patient seem to have more extensive diarrhea has been describing diarrhea to be watery loose no blood or mucus in the stool frequency can be from 5 to 10/day patient did have decreased appetite and episode of vomiting but no significant abdominal pain no fever patient denies having any recent history of antibiotic use patient on presentation to the hospital was afebrile and no fever have been recorded subsequently patient did have a white count of 7.8 no left shift BUN/creatinine was elevated on admission and low potassium that has subsequently improved liver enzymes are normal did goldsmith ve a stool for C. difficile EIA that was negative patient did have a abdominal pelvis CT fluid-filled bowel loops including the colon and rectum correlate for diarrhea has no acute deformity changes severe atherosclerotic changes including mesenteric vasculature, infectious he was consulted for further management of this chronic diarrhea Review of Systems Positive point and negatives has been mentioned in the HPI, complete review of systems was performed and all other systems are negative Past Medical History Past Medical History: Atrial Fibrillation, CVA/TIA, Hyperlipidemia, Hypertension, Osteoarthritis (OA), Vascular Disorder Additional Past Medical History / Comment(s): HEPATITIS UNKNOWN TYPE YEARS AGO. stroke rt eye History of Any Multi-Drug Resistant Organisms: None Reported Past Surgical History: Appendectomy, Back Surgery, Pacemaker Additional Past Surgical History / Comment(s): LEFT LEG- BYPASS, RIGHT LEG B YPASS , left carotid stent, BOWEL SURGERY Past Anesthesia/Blood Transfusion Reactions: No Reported Reaction Type of Cardiac Device: Permanent Pacemaker Device Placement Date:: 09/2018 Past Psychological History: Depression Additional Psychological History / Comment(s): STATES DEPRESSED WITH HEALTH ISSUES Smoking Status: Former smoker Past Alcohol Use History: Daily Additional Past Alcohol Use History / Comment(s): Patient was smoker 2 packs per day since he was 11 years old and quit at age 38. He states he drinks 3-6 beers per day. He lives at home with his . Past Drug Use History: None Reported - Past Family History Mother Family Medical History: No Reported History Additional Family Medical History / Comment(s): Mother at age 88 from septic shock. Father Family Medical History: Coronary Artery Disease (CAD) Additional Family Medical History / Comment(s): Father at age 94, hx triple vessel diseaseCABG and aortic aneurysm. Brother(s) Family Medical History: No Reported History Additional Family Medical History / Comment(s): . Sister(s) Family Medical History: No Reported History Additional Family Medical History / Comment(s): . Son(s) Family Medical History: No Reported History Additional Family Medical History / Comment(s): . Daughter(s) Family Medical History: No Reported History Additional Family Medical History / Comment(s): . Medications and Allergies Home Medications Medication Instructions Recorded Confirmed Type Gabapentin [Neurontin] 300 mg PO BID 02/27/18 02/09/24 History allopurinoL [Zyloprim] 300 mg PO DAILY 02/27/18 02/09/24 History Ascorbic Acid [Vitamin C] 1,000 mg PO DAILY 10/02/18 02/09/24 History Multivitamins, Thera [Multivitamin 1 tab PO DAILY 10/02/18 02/09/24 History (formulary)] Apixaban [Eliquis] 5 mg PO BID 05/29/22 02/09/24 History Fenofibrate Nanocrystallized 145 mg PO DAILY 05/29/22 02/09/24 History [Fenofibrate] Furosemide [Lasix] 20 mg PO BID 08/30/22 02/09/24 History Cholecalciferol [Vitamin D3 (25 50 mcg PO DAILY 02/09/24 02/09/24 History Mcg = 1000 Iu)] Diphenox-Atrop 2.5-0.025 mg 2 tab PO QID PRN 02/09/24 02/09/24 History [Lomotil] Escitalopram [Lexapro] 20 mg PO DAILY 02/09/24 02/09/24 History Immune Support Complex 75mg 2 tab PO DAILY 02/09/24 02/09/24 History Metoprolol Tartrate [Lopressor] 100 mg PO BID 02/09/24 02/09/24 History Pravastatin Sodium [Pravachol] 40 mg PO DAILY 02/09/24 02/09/24 History Allergies Allergy/AdvReac Type Severity Reaction Status Date / Time lisinopril Allergy Swelling Verified 02/09/24 10:31 OF FACE Physical Exam Vitals: Vital Signs Temp Pulse Resp BP BP Pulse Ox 02/10/24 08:19 97.9 F 88 18 104/67 95 02/10/24 04:00 97.9 F 59 L 18 145/48 96 02/10/24 00:00 97.1 F L 63 17 124/96 94 L 02/09/24 20:00 97.8 F 65 18 125/55 94 L 02/09/24 16:00 98.5 F 60 16 138/68 97 Intake and Output 02/09/24 02/10/24 02/10/24 22:59 06:59 14:59 Intake Total 10 10 250 Balance 10 10 250 Intake: IV 10 10 10 Invasive Line 2 10 Invasive Line 3 10 10 Oral 240 Other: Voiding Method Toilet Toilet Toilet Diaper Diaper Diaper # Voids 2 1 # Bowel Movements 1 1 Weight 68.1 kg GENERAL DESCRIPTION: Elderly male lying in bed, no distress. No tachypnea or accessory muscle of respiration use. HEENT: Shows Pallor , no scleral icterus. Oral mucous membrane is dry. No pharyngeal erythema or thrush NECK: Trachea central, no thyromegaly. LUNGS: Unlabored breathing. Clear to auscultation anteriorly. No wheeze or crackle. HEART: S1, S2, regular rate and rhythm. No loud murmur ABDOMEN: Soft, no tenderness , guarding or rigidity, no organomegaly EXTREMITIES: No edema of feet. SKIN: No rash, no masses palpable. NEUROLOGICAL: The patient is awake, alert, mood and affect normal. Results CBC & Chem 7: 02/10/24 09:25 02/11/24 06:44 Labs: Abnormal Lab Results - Last 24 Hours (Table) 02/10/24 02/10/24 Range/Units :25 09:25 RBC 3.25 L (4.30-5.90) m/uL Hgb 11.2 L (13.0-17.5) gm/dL Hct 34.3 L (39.0-53.0) % MCV 105.4 H (80.0-100.0) fL Lymphocytes # 0.5 L (1.0-4.8) k/uL Potassium 2.3 L* (3.5-5.1) mmol/L BUN 24 H (9-20) mg/dL Calcium 10.4 H (8.4-10.2) mg/dL Phosphorus 0.9 L* (2.5-4.5) mg/dL Total Protein 6.2 L (6.3-8.2) g/dL Albumin 3.4 L (3.5-5.0) g/dL Assessment and Plan (1) Diarrhea Current Visit: Yes Status: Acute Code(s): R19.7 - DIARRHEA, UNSPECIFIED SNOMED Code(s): 40479415 Plan: 1patient presented hospital with chronic diarrhea with recent flareup patient did not have any recent antibiotic exposure, stool for C. difficile EIA was negative CT abdominal pelvis did not show any acute inflammatory changes questionably related to ischemic bowel as there was concern for atherosclerotic disease of the mesenteric vasculature 2we will check a stool for C. difficile PCR and also stool culture and stool for Cryptosporidium to complete the workup for infectious etiology 3General Surgery has been consulted for possible colonoscopy and biopsy 4we will add Questran for symptomatic relief Family at the bedside question concern answered We will follow on clinical condition and cultures to further adjust medication if needed Thank you for this consultation we will follow the patient along with you Dictation was produced using [employer] dictation software. please excuse any grammatical, word or spelling errors. Time with Patient: Greater than 30
[2024-02-11] MEDS: POTASSIUM CHLORIDE 10 MEQ in WATER FOR INJECTION 1 100ML.BAG IVPB SCH (12:06)
--- NOTE | 2024-02-11 12:14 | P.PN ---
Subjective Progress Note Date: 02/11/24 Principal diagnosis: Reason for follow-up is chronic diarrhea Patient is a 78-year-old male with a past medical history significant for atrial fibrillation CVA TIA hyperlipidemia hypertension osteoarthritis patient presenting to the hospital with diarrhea that has been chronic for him however over the last 5 weeks the patient seem to have more extensive, patient did have CT abdominal pelvis did not show any acute inflammation there was concern for possible mesenteric ischemia. On today's evaluation 02/11/2024, Patient is afebrile patient is currently on room air and breathing comfortably patient noticed to have mental status changes attributed to possible DTs as the patient to have a history of heavy drinking as reported by the family the bedside patient overall diarrhea has slowed on as only 1 episode last night as reported by the patient nurse. Patient did have a creatinine 0.73 white count was 5.3 yesterday repeat stool studies requested not completed Objective - Vital Signs Vital signs: Vital Signs Temp 98.3 F 02/11/24 09:35 Pulse 70 02/11/24 09:36 Resp 19 02/11/24 09:35 BP 162/61 02/11/24 09:35 Pulse Ox 92 L 02/11/24 09:35 FiO2 Intake & Output 02/10/24 02/11/24 02/11/24 18:59 06:59 18:59 Intake Total 260 10 10 Balance 260 10 10 Weight 71.8 kg Intake: IV 20 10 10 Invasive Line 3 20 10 10 Oral 240 Other: Voiding Method Toilet Toilet Toilet Diaper Diaper Diaper # Voids 6 1 # Bowel Movements 6 1 - Exam GENERAL DESCRIPTION: An elderly male lying in bed in no distress RESPIRATORY SYSTEM: Unlabored breathing , decreased breath sounds at bases HEART: S1 S2 regular rate and rhythm , ABDOMEN: Soft , no tenderness EXTREMITIES: No edema feet - Labs CBC & Chem 7: 02/10/24 09:25 02/11/24 06:44 Labs: Abnormal Lab Results - Last 24 Hours (Table) 02/10/24 02/11/24 02/11/24 Range/Units 16:43 00:36 06:44 Potassium 2.9 L 3.1 L (3.5-5.1) mmol/L Chloride 115 H (98-107) mmol/L Carbon Dioxide 15 L (22-30) mmol/L Calcium 10.5 H (8.4-10.2) mg/dL Phosphorus 1.1 L (2.5-4.5) mg/dL Total Protein 6.2 L (6.3-8.2) g/dL Assessment and Plan (1) Diarrhea Current Visit: Yes Status: Acute Code(s): R19.7 - DIARRHEA, UNSPECIFIED SNOMED Code(s): 54421624 Plan: 1patient presented hospital with chronic diarrhea with recent flareup patient did not have any recent antibiotic exposure, stool for C. difficile EIA was negative CT abdominal pelvis did not show any acute inflammatory changes questionably related to ischemic bowel as there was concern for atherosclerotic disease of the mesenteric vasculature 2we are currently waiting for C. difficile PCR and also stool culture and stool for Cryptosporidium to complete the workup for infectious etiology 3General Surgery has been on the case and the patient benefit from possible colonoscopy and biopsy 4patient to continue with [facility] for symptomatic relief Family at the bedside question concern answered Dictation was produced using [employer] dictation software. please excuse any grammatical, word or spelling errors. Time with Patient: Less than 30
--- NOTE | 2024-02-11 12:28 | P.PN ---
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 Patient reports that it occurred last night where in he "blacked out'. He also reports 3 weeks ago, he began to have diarrhea watery in consistency with a brownish color without any blood occurring once a day for 3 to 5 days. Frequency of diarrheal episodes increased in the coming days. He also reports he started to have vomiting 2 weeks ago that was watery, brownish in color, with no blood and no undigested food. He denies any subjective fevers, cough, abdominal pain, jaundice, headaches, seizures, recent travel, changes in diet, sweats, and weight loss. 02/10. Patient seen and examined. Potassium levels has improved. Phosphorus is still low. Still having diarrhea. General surgery evaluated patient, recommend doing colonoscopy. Patient is confused, family stated that the patient drinks up to 7-8 beers daily, patient could be detoxing at this time. REVIEW OF SYSTEMS: Review of system cannot be obtained as patient is very confused PHYSICAL EXAMINATION: GENERAL: The patient is alert to self, lethargic, not in any acute distress. Well developed, well nourished. HEENT: Pupils are round and equally reacting to light. EOMI. No scleral icterus. No conjunctival pallor. Normocephalic, atraumatic. No pharyngeal erythema. No thyromegaly. CARDIOVASCULAR: S1 and S2 present. No murmurs, rubs, or gallops. PULMONARY: Chest is clear to auscultation, no wheezing or crackles. ABDOMEN: Soft, nontender, nondistended, normoactive bowel sounds. No palpable organomegaly. MUSCULOSKELETAL: No joint swelling or deformity. EXTREMITIES: No cyanosis, clubbing, or pedal edema. NEUROLOGICAL: Gross neurological examination did not reveal any focal deficits. SKIN: No rashes. Assessment and plan Syncope likely orthostatic due to chronic diarrhea, resolving Negative C. difficile PCR results Check orthostatics Acute metabolic encephalopathy Alcohol abuse Alcohol detox Continue CIWA protocol Continue high-dose thiamine and folic acid #. Hypokalemia, due to chronic diarrhea Monitor lites Continue lactobacillus General Surgery eval the patient, recommend doing colonoscopy which scheduled for #. Hypophosphatemia, due to chronic diarrhea Phosphorous replacement ordered #. Macrocytosis likely due to dehydration MCV at 105.4 Serum B12 and folate levels # Hypomagnesemia likely due to diarrhea and vomiting, resolved #. Prerenal azotemia likely due to above, unknown baseline of creatinine Patient is currently asymptomatic and has no history of CKD Will monitor for now #. Elevated troponins, likely due to increased demand (type II), resolved Patient is not symptomatic and stable. troponin trend downward at 0.031 #. CHF, not in exacerbation (EF 45-50% echo in 09/2018) patient is asymptomatic, and actually fluid depleted, pro BNP of 1570 Chronic conditions: Osteoarthritis, hypertension, hyperlipidemia, CVA/TIA, vascular disorder, pacemaker placement, former smoker, A-fib Labs and medication were reviewed.. Continue same treatment. Continue with symptomatic treatment. Resume home medication. Monitor labs and vitals. DVT and GI prophylaxis. Further recommendations as per clinical course of the patient Dictation was produced using [employer] dictation software. please excuse any grammatical, word or spelling errors. Objective - Vital Signs Vital signs: Vital Signs Temp 97.9 F 02/11/24 03:16 Pulse 54 L 02/11/24 03:16 Resp 19 02/11/24 03:16 BP 163/69 02/11/24 03:16 Pulse Ox 99 02/11/24 03:16 FiO2 Intake & Output 02/10/24 02/11/24 02/11/24 18:59 06:59 18:59 Intake Total 260 10 Balance 260 10 Weight 71.8 kg Intake: IV 20 10 Invasive Line 3 20 10 Oral 240 Other: Voiding Method Toilet Toilet Diaper Diaper # Voids 6 1 # Bowel Movements 6 1 - Labs CBC & Chem 7: 02/10/24 09:25 02/11/24 06:44 Labs: Abnormal Lab Results - Last 24 Hours (Table) 02/10/24 02/10/24 02/10/24 Range/Units 09:25 09:25 16:43 RBC 3.25 L (4.30-5.90) m/uL Hgb 11.2 L (13.0-17.5) gm/dL Hct 34.3 L (39.0-53.0) % MCV 105.4 H (80.0-100.0) fL Lymphocytes # 0.5 L (1.0-4.8) k/uL Potassium 2.3 L* 2.9 L (3.5-5.1) mmol/L Chloride (98-107) mmol/L Carbon Dioxide (22-30) mmol/L BUN 24 H (9-20) mg/dL Calcium 10.4 H (8.4-10.2) mg/dL Phosphorus 0.9 L* (2.5-4.5) mg/dL Total Protein 6.2 L (6.3-8.2) g/dL Albumin 3.4 L (3.5-5.0) g/dL 02/11/24 02/11/24 Range/Units 00:36 06:44 RBC (4.30-5.90) m/uL Hgb (13.0-17.5) gm/dL Hct (39.0-53.0) % MCV (80.0-100.0) fL Lymphocytes # (1.0-4.8) k/uL Potassium 3.1 L (3.5-5.1) mmol/L Chloride 115 H (98-107) mmol/L Carbon Dioxide 15 L (22-30) mmol/L BUN (9-20) mg/dL Calcium 10.5 H (8.4-10.2) mg/dL Phosphorus 1.1 L (2.5-4.5) mg/dL Total Protein 6.2 L (6.3-8.2) g/dL Albumin (3.5-5.0) g/dL
--- NOTE | 2024-02-11 12:53 | P.PN ---
Subjective Progress Note Date: 02/11/24 CHIEF COMPLAINT: Chronic diarrhea HISTORY OF PRESENT ILLNESS: Patient initially scheduled for colonoscopy tomorrow. However, patient is very confused today and would have difficulty completing the bowel prep. Also his electrolytes are still being corrected. Potassium 3.5 phosphorus 1.1 and magnesium 1.6. Afebrile. Patient still having diarrhea. Family at bedside reports that it is a little less. PHYSICAL EXAM: VITAL SIGNS: Reviewed. GENERAL: no acute distress. ABDOMEN: Soft. Nondistended. Nontender. NEUROLOGIC: Confused ASSESSMENT: 1. Diarrhea with history of chronic diarrhea 2. Fall with possible syncopal episode 3. Weakness 4. Hypokalemia, hypomagnesemia and hypomagnesemia PLAN: -Will hold off on colonoscopy at this time. Patient is confused and would have difficulty completing the bowel prep. -Awaiting stool cultures -Continue to correct electrolytes -Continue to monitor -Will resume regular diet Physician Facilities Coordinator note has been reviewed by physician. Signing provider agrees with the documented findings, assessment, and plan of care. Objective - Vital Signs Vital signs: Vital Signs Temp 98.5 F 02/11/24 11:59 Pulse 71 02/11/24 11:59 Resp 19 02/11/24 11:59 BP 135/54 02/11/24 11:59 Pulse Ox 92 L 02/11/24 11:59 FiO2 Intake & Output 02/10/24 02/11/24 02/11/24 18:59 06:59 18:59 Intake Total 260 10 10 Balance 260 10 10 Weight 71.8 kg Intake: IV 20 10 10 Invasive Line 3 20 10 10 Oral 240 Other: Voiding Method Toilet Toilet Toilet Diaper Diaper Diaper # Voids 6 1 # Bowel Movements 6 1 - Labs CBC & Chem 7: 02/10/24 09:25 02/11/24 06:44 Labs: Abnormal Lab Results - Last 24 Hours (Table) 02/10/24 02/11/24 02/11/24 Range/Units 16:43 00:36 06:44 Potassium 2.9 L 3.1 L (3.5-5.1) mmol/L Chloride 115 H (98-107) mmol/L Carbon Dioxide 15 L (22-30) mmol/L Calcium 10.5 H (8.4-10.2) mg/dL Phosphorus 1.1 L (2.5-4.5) mg/dL Total Protein 6.2 L (6.3-8.2) g/dL
[2024-02-11] MEDS ORDERED: Phosphorus Replacement Protoco 1 EACH MISC MISCELLANE PRN (14:29)
[2024-02-11] MEDS: POTAS-SOD-PHOS 278-164-250 MG 1 EACH PACKET PO ONE (14:31)
[2024-02-11] MEDS: SODIUM PHOSPHATE 30 MMOL in DEXTROSE 5% IN WATER 250 ML IVPB ONE (15:15)
[2024-02-12 04:13] LABS: Basophils % (A) 0 %; Eosinophils # (A) 0.2 k/uL (0-0.7); Eosinophils % (A) 2 %; HGB 10.4 gm/dL (13.0-17.5); Hypochromasia Moderate; Lymphocytes # (A) 1.1 k/uL (1.0-4.8); Lymphocytes % (A) 11 %; MCH 34.5 pg (25.0-35.0); MCHC 32.7 g/dL (31.0-37.0); MCV 105.5 fL (80.0-100.0); Macrocytosis Moderate; Mean Platelet Volume 7.7; Monocytes # (A) 0.6 k/uL (0-1.0); Monocytes % (A) 6 %; Neutrophils # (A) 7.8 k/uL (1.3-7.7); Neutrophils % (A) 79 %; Platelet Count 221 k/uL (150-450); RBC 3.03 m/uL (4.30-5.90); RDW 15.6 % (11.5-15.5); WBC 9.9 k/uL (3.8-10.6)
[2024-02-12 05:18] LABS: ALT 19 U/L (4-49); AST 36 U/L (17-59); African American GFR (CKD) >90 (>60 ml/min/1.73 sqM); Albumin 2.8 g/dL (3.5-5.0); Alkaline Phosphatase 57 U/L (38-126); Anion Gap 5 mmol/L; Blood Urea Nitrogen 16 mg/dL (9-20); Calcium 9.8 mg/dL (8.4-10.2); Carbon Dioxide 19 mmol/L (22-30); Chloride 114 mmol/L (98-107); Glucose 87 mg/dL (74-99); Non-African American GFR(CKD) 87 (>60 ml/min/1.73 sqM); Potassium 3.4 mmol/L (3.5-5.1); Sodium 138 mmol/L (137-145); Total Bilirubin 1.1 mg/dL (0.2-1.3); Total Protein 5.4 g/dL (6.3-8.2)
--- NOTE | 2024-02-12 13:35 | P.PN ---
Subjective Progress Note Date: 02/12/24 Patient is a 78-year-old male with a history of A-fib, CVA/TIA, former smoker, vascular disorder (with left and right leg vessel bypass) who came in to our ED due to syncope. Patient reports that it occurred last night where in he "blacked out'. He also reports 3 weeks ago, he began to have diarrhea watery in consistency with a brownish color without any blood occurring once a day for 3 to 5 days. Frequency of diarrheal episodes increased in the coming days. He also reports he started to have vomiting 2 weeks ago that was watery, brownish in color, with no blood and no undigested food. He denies any subjective fevers, cough, abdominal pain, jaundice, headaches, seizures, recent travel, changes in diet, sweats, and weight loss. 02/10. Patient seen and examined. Potassium levels has improved. Phosphorus is still low. Still having diarrhea. General surgery evaluated patient, recommend doing colonoscopy. Patient is confused, family stated that the patient drinks up to 7-8 beers daily, patient could be detoxing at this time. 02/11 Patient is seen and examined at bedside. Reported to still have diarrhea overnight that is watery, brown in color but less less volume. Family reports patient is less confused denies any blood in his stool, vomiting, loss of consciousness, seizures, headaches, dizziness. Potassium level at 3.4. Phosphorus at normal level. Review of systems: Pertinent positives and negatives as discussed in HPI, a complete review of systems was performed and all other systems are negative. Physical examination: Vital signs reviewed General: non toxic, not distress, appears at stated age, normal weight Derm: no unusual rashes/lesions, warm Head: atraumatic, normocephalic, symmetric Eyes: EOMI, no lid lag, anicteric sclera, pupils equal round reactive to light ENT: Nose and ears atraumatic Neck: No cervical lymphadenopathy, trachea midline, supple Mouth: no lip lesion, mucus membranes moist Cardiovascular: irregularly irregular, 3/6 murmur loudest at second right ICS Lungs: CTA bilateral, no rhonchi, no rales, no accessory muscle use Abdominal: soft, nontender to palpation, no guarding Ext: muscle strength 5 out of 5 in all 4 extremities grossly, no gross muscle atrophy, no contractures, positive dorsalis pedis pulse bilateral, no edema Neuro: CN II-XI grossly intact, no gross focal neuro deficits Psych: Alert, lethargic, appropriate affect and mood Assessment/Plan: #. Syncope likely orthostatic due to chronic diarrhea, resolving Negative C. difficile PCR results Check orthostatics Stool cultures pending #. Acute metabolic encephalopathy Alcohol abuse Alcohol detox Continue CIWA protocol Continue high-dose thiamine and folic acid #. Hypokalemia, due to chronic diarrhea Monitor lites Continue lactobacillus General Surgery eval the patient, we will hold off on colonoscopy due to patient unable to perform bowel prep properly. Switch to clear liquid diet. #. Hypophosphatemia, due to chronic diarrhea Phosphorous replacement ordered #. Macrocytosis likely due to alcohol abuse MCV at 105.4 Serum B12 and folate levels # Hypomagnesemia likely due to diarrhea and vomiting, resolved #. Prerenal azotemia likely due to above, unknown baseline of creatinine Patient is currently asymptomatic and has no history of CKD Will monitor for now #. Elevated troponins, likely due to increased demand (type II), resolved Patient is not symptomatic and stable. troponin trend downward at 0.031 #. CHF, not in exacerbation (EF 45-50% echo in 09/2018) patient is asymptomatic, and actually fluid depleted, pro BNP of 1570 Chronic conditions: Osteoarthritis, hypertension, hyperlipidemia, CVA/TIA, vascular disorder, pacemaker placement, former smoker, A-fib Attestation I have seen and examined this patient with my resident , discussed the same with the resident/RENÉ, and agree with the dictator's assessment and plan as written GENERAL: The patient is alert and oriented x1-2, not in any acute distress. ill looking HEENT: Pupils are round and equally reacting to light. EOMI. No scleral icterus. No conjunctival pallor. Normocephalic, atraumatic. No pharyngeal erythema. No thyromegaly. CARDIOVASCULAR: S1 and S2 present. No murmurs, rubs, or gallops. PULMONARY: Chest is clear to auscultation, no wheezing or crackles. ABDOMEN: Soft, nontender, nondistended, normoactive bowel sounds. No palpable organomegaly. MUSCULOSKELETAL: No joint swelling or deformity. EXTREMITIES: No cyanosis, clubbing, or pedal edema. NEUROLOGICAL: Moving all extremities SKIN: No rashes. Continue CIWA protocol Continue to replace electrolytes Dr. Srikanth lau Objective - Vital Signs Vital signs: Vital Signs Temp 97.7 F 02/12/24 04:00 Pulse 70 02/12/24 04:00 Resp 18 02/12/24 04:00 BP 127/77 02/12/24 04:00 Pulse Ox 96 02/12/24 04:00 FiO2 Intake & Output 02/11/24 02/12/24 02/12/24 18:59 06:59 18:59 Intake Total 20 720 Balance 20 720 Weight 74.7 kg Intake: IV 20 20 Invasive Line 3 20 20 Intake, IV Titration 700 Amount Lactated Ringers 1,000 ml 500 @ 50 mls/hr IV .Q20H VALERIE Rx#:[id number] Potassium Chloride 10 meq 200 In Water For Injection 1 100ml.bag @ 100 mls/hr IVPB Q1HR VALERIE Rx#: [id number] Other: Voiding Method Toilet Toilet Diaper Diaper # Voids 2 # Bowel Movements 1 - Labs CBC & Chem 7: 02/12/24 03:05 02/12/24 03:05 Labs: Abnormal Lab Results - Last 24 Hours (Table) 02/12/24 02/12/24 Range/Units 03:05 03:05 RBC 3.03 L (4.30-5.90) m/uL Hgb 10.4 L (13.0-17.5) gm/dL Hct 32.0 L (39.0-53.0) % MCV 105.5 H (80.0-100.0) fL RDW 15.6 H (11.5-15.5) % Neutrophils # 7.8 H (1.3-7.7) k/uL Potassium 3.4 L (3.5-5.1) mmol/L Chloride 114 H (98-107) mmol/L Carbon Dioxide 19 L (22-30) mmol/L Total Protein 5.4 L (6.3-8.2) g/dL Albumin 2.8 L (3.5-5.0) g/dL
[2024-02-12] MEDS ORDERED: Magnesium Replacement Protocol 1 EACH MISC MISCELLANE PRN (14:33)
--- NOTE | 2024-02-12 15:04 | P.PN ---
Subjective Progress Note Date: 02/12/24 Principal diagnosis: Reason for follow-up is chronic diarrhea Patient is a 78-year-old male with a past medical history significant for atrial fibrillation CVA TIA hyperlipidemia hypertension osteoarthritis patient presenting to the hospital with diarrhea that has been chronic for him however over the last 5 weeks the patient seem to have more extensive, patient did have CT abdominal pelvis did not show any acute inflammation there was concern for possible mesenteric ischemia. On today's evaluation that is 02/12/2024, patient has been afebrile, patient is breathing comfortably and is currently on room air, patient remains to be lethargic slightly restless and unable to provide any history no vomiting reported and diarrhea slowed down per the at the bedside. Patient white count is 9.8, creatinine 0.74 stool studies are currently pending Objective - Vital Signs Vital signs: Vital Signs Temp 98.5 F 02/12/24 12:50 Pulse 65 02/12/24 12:50 Resp 20 02/12/24 12:50 BP 126/67 02/12/24 12:50 Pulse Ox 94 L 02/12/24 12:50 FiO2 Intake & Output 02/11/24 02/12/24 02/12/24 18:59 06:59 18:59 Intake Total 20 720 0 Balance 20 720 0 Weight 74.7 kg Intake: IV 20 20 Invasive Line 3 20 20 Intake, IV Titration 700 Amount Lactated Ringers 1,000 ml 500 @ 50 mls/hr IV .Q20H VALERIE Rx#:[id number] Potassium Chloride 10 meq 200 In Water For Injection 1 100ml.bag @ 100 mls/hr IVPB Q1HR VALERIE Rx#: [id number] Oral 0 Other: Voiding Method Toilet Toilet Diaper Diaper # Voids 2 1 # Bowel Movements 1 - Exam GENERAL DESCRIPTION: An elderly male lying in bed in no distress RESPIRATORY SYSTEM: Unlabored breathing , decreased breath sounds at bases HEART: S1 S2 regular rate and rhythm , ABDOMEN: Soft , no tenderness EXTREMITIES: No edema feet - Labs CBC & Chem 7: 02/12/24 03:05 02/12/24 03:05 Labs: Abnormal Lab Results - Last 24 Hours (Table) 02/12/24 02/12/24 02/12/24 Range/Units 03:05 03:05 03:05 RBC 3.03 L (4.30-5.90) m/uL Hgb 10.4 L (13.0-17.5) gm/dL Hct 32.0 L (39.0-53.0) % MCV 105.5 H (80.0-100.0) fL RDW 15.6 H (11.5-15.5) % Neutrophils # 7.8 H (1.3-7.7) k/uL Potassium 3.4 L (3.5-5.1) mmol/L Chloride 114 H (98-107) mmol/L Carbon Dioxide 19 L (22-30) mmol/L Magnesium 1.4 L (1.6-2.3) mg/dL Total Protein 5.4 L (6.3-8.2) g/dL Albumin 2.8 L (3.5-5.0) g/dL Assessment and Plan (1) Diarrhea Current Visit: Yes Status: Acute Code(s): R19.7 - DIARRHEA, UNSPECIFIED SNOMED Code(s): 09741146 Plan: 1patient presented hospital with chronic diarrhea with recent flareup patient did not have any recent antibiotic exposure, stool for C. difficile EIA was negative CT abdominal pelvis did not show any acute inflammatory changes questionably related to ischemic bowel as there was concern for atherosclerotic disease of the mesenteric vasculature 2we are currently waiting for C. difficile PCR and also stool culture and stool for Cryptosporidium to complete the workup for infectious etiology 3General Surgery has been on the case and the patient benefit from possible col onoscopy and biopsy once his mentation improves and the patient cooperates with the bowel prep 4patient did have some improvement in diarrhea and [facility] Family at the bedside question concern answered Dictation was produced using [employer] dictation software. please excuse any grammatical, word or spelling errors. Time with Patient: Less than 30
[2024-02-12] MEDS: POTASSIUM CHLORIDE 20 MEQ in WATER FOR INJECTION 1 100ML.BAG IVPB ONE (15:10)
[2024-02-12] MEDS: MAGNESIUM SULFATE-D5W PMX 1 GM in DEXTROSE/WATER 1 100ML.BAG IVPB SCH (15:11)
[2024-02-12] MEDS ORDERED: CIPROFLOXACIN 0.3% OPHTH SOLN 5 ML BTL BOTH EYES SCH (16:00)
--- NOTE | 2024-02-12 16:50 | P.PN ---
Subjective Progress Note Date: 02/12/24 CHIEF COMPLAINT: Chronic diarrhea HISTORY OF PRESENT ILLNESS: patient remains confused. Family at bedside reports that he is having less diarrhea.WBC 9.9 Hgb 10.4 potassium 3.4 magnesium 1.4 PHYSICAL EXAM: VITAL SIGNS: Reviewed. GENERAL: no acute distress. ABDOMEN: Soft. Nondistended. Nontender. NEUROLOGIC: Confused ASSESSMENT: 1. Diarrhea with history of chronic diarrhea 2. Fall with possible syncopal episode 3. Weakness 4. Hypokalemia, hypomagnesemia and hypomagnesemia PLAN: -Will hold off on colonoscopy at this time. Patient is confused and would have difficulty completing the bowel prep. -continue to correct electrolytes -Awaiting stool cultures -Continue to monitor -repeat labs in a.m. Physician Food Service Sales Representatives note has been reviewed by physician. Signing provider agrees with the documented findings, assessment, and plan of care. Objective - Vital Signs Vital signs: Vital Signs Temp 98.4 F 02/12/24 15:09 Pulse 66 02/12/24 15:09 Resp 18 02/12/24 15:09 BP 125/52 02/12/24 15:09 Pulse Ox 92 L 02/12/24 15:09 FiO2 Intake & Output 02/11/24 02/12/24 02/12/24 18:59 06:59 18:59 Intake Total 20 720 0 Balance 20 720 0 Weight 74.7 kg Intake: IV 20 20 Invasive Line 3 20 20 Intake, IV Titration 700 Amount Lactated Ringers 1,000 ml 500 @ 50 mls/hr IV .Q20H VALERIE Rx#:[id number] Potassium Chloride 10 meq 200 In Water For Injection 1 100ml.bag @ 100 mls/hr IVPB Q1HR VALERIE Rx#: [id number] Oral 0 Other: Voiding Method Toilet Toilet Diaper Diaper # Voids 2 1 # Bowel Movements 1 - Labs CBC & Chem 7: 02/12/24 03:05 02/12/24 03:05 Labs: Abnormal Lab Results - Last 24 Hours (Table) 02/12/24 02/12/24 02/12/24 Range/Units 03:05 03:05 03:05 RBC 3.03 L (4.30-5.90) m/uL Hgb 10.4 L (13.0-17.5) gm/dL Hct 32.0 L (39.0-53.0) % MCV 105.5 H (80.0-100.0) fL RDW 15.6 H (11.5-15.5) % Neutrophils # 7.8 H (1.3-7.7) k/uL Potassium 3.4 L (3.5-5.1) mmol/L Chloride 114 H (98-107) mmol/L Carbon Dioxide 19 L (22-30) mmol/L Magnesium 1.4 L (1.6-2.3) mg/dL Total Protein 5.4 L (6.3-8.2) g/dL Albumin 2.8 L (3.5-5.0) g/dL
[2024-02-13] MEDS: LACTATED RINGERS 1,000 ML IV SCH (09:55)
[2024-02-13 10:23] LABS: HCT 33.4 % (39.0-53.0); HGB 10.7 gm/dL (13.0-17.5); Hypochromasia Moderate; MCHC 32.1 g/dL (31.0-37.0); MCV 105.8 fL (80.0-100.0); Macrocytosis Moderate; Mean Platelet Volume 7.6; Platelet Count 229 k/uL (150-450); RBC 3.16 m/uL (4.30-5.90); RDW 15.8 % (11.5-15.5); WBC 6.7 k/uL (3.8-10.6)
[2024-02-13 10:34] LABS: African American GFR (CKD) >90 (>60 ml/min/1.73 sqM); Anion Gap 3 mmol/L; Blood Urea Nitrogen 14 mg/dL (9-20); Calcium 9.6 mg/dL (8.4-10.2); Carbon Dioxide 23 mmol/L (22-30); Chloride 115 mmol/L (98-107); Glucose 84 mg/dL (74-99); Non-African American GFR(CKD) 89 (>60 ml/min/1.73 sqM); Potassium 3.5 mmol/L (3.5-5.1); Sodium 141 mmol/L (137-145)
--- NOTE | 2024-02-13 11:02 | P.PN ---
Subjective Progress Note Date: 02/13/24 Patient is still confused. On exam vital signs appear stable. Abdomen soft. Will remain on standby for possible colonoscopy if his condition improves. Objective - Vital Signs Vital signs: Vital Signs Temp 98.5 F 02/13/24 09:38 Pulse 72 02/13/24 09:38 Resp 16 02/13/24 09:38 BP 132/70 02/13/24 09:38 Pulse Ox 96 02/13/24 09:38 FiO2 Intake & Output 02/12/24 02/13/24 02/13/24 18:59 06:59 18:59 Intake Total 0 236 Output Total 200 350 Balance -200 -114 Weight 72.9 kg Intake: Oral 0 236 Output: Urine 200 350 Other: Voiding Method Toilet Diaper # Voids 1 2 # Bowel Movements 1 - Labs CBC & Chem 7: 02/13/24 09:25 02/13/24 09:25 Labs: Abnormal Lab Results - Last 24 Hours (Table) 02/13/24 02/13/24 Range/Units 09:25 09:25 RBC 3.16 L (4.30-5.90) m/uL Hgb 10.7 L (13.0-17.5) gm/dL Hct 33.4 L (39.0-53.0) % MCV 105.8 H (80.0-100.0) fL RDW 15.8 H (11.5-15.5) % Chloride 115 H (98-107) mmol/L
--- NOTE | 2024-02-13 11:22 | P.PN ---
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 Patient reports that it occurred last night where in he "blacked out'. He also reports 3 weeks ago, he began to have diarrhea watery in consistency with a brownish color without any blood occurring once a day for 3 to 5 days. Frequency of diarrheal episodes increased in the coming days. He also reports he started to have vomiting 2 weeks ago that was watery, brownish in color, with no blood and no undigested food. He denies any subjective fevers, cough, abdominal pain, jaundice, headaches, seizures, recent travel, changes in diet, sweats, and weight loss. 02/10. Patient seen and examined. Potassium levels has improved. Phosphorus is still low. Still having diarrhea. General surgery evaluated patient, recommend doing colonoscopy. Patient is confused, family stated that the patient drinks up to 7-8 beers daily, patient could be detoxing at this time. 02/11 Patient is seen and examined at bedside. Reported to still have diarrhea overnight that is watery, brown in color but less less volume. Family reports patient is less confused denies any blood in his stool, vomiting, loss of consciousness, seizures, headaches, dizziness. Potassium level at 3.4. Phosphorus at normal level. 02/12 Patient is seen and examined at bedside. Reported no episodes of diarrhea overnight. Per family at bedside, mentation improved and more alert. Review of systems: Pertinent positives and negatives as discussed in HPI, a complete review of systems was performed and all other systems are negative. Physical examination: Vital signs reviewed General: non toxic, not distress, appears at stated age, normal weight Derm: no unusual rashes/lesions, warm Head: atraumatic, normocephalic, symmetric Eyes: EOMI, no lid lag, anicteric sclera, pupils equal round reactive to light ENT: Nose and ears atraumatic Neck: No cervical lymphadenopathy, trachea midline, supple Mouth: no lip lesion, mucus membranes moist Cardiovascular: NRRR, 3/6 murmur loudest at second right ICS Lungs: CTA bilateral, wheezing in bilateral lung knutson, no accessory muscle use Abdominal: soft, nontender to palpation, no guarding Ext: muscle strength 5 out of 5 in all 4 extremities grossly, no gross muscle atrophy, no contractures, positive dorsalis pedis pulse bilateral, no edema Neuro: CN II-XI grossly intact, no gross focal neuro deficits Psych: Alert, lethargic, appropriate affect and mood Assessment/Plan: #. Syncope likely orthostatic due to chronic diarrhea, resolved Negative C. difficile PCR results. Patient has not had an episode of syncope. Check orthostatics Stool cultures pending #. Acute metabolic encephalopathy #. Alcohol abuse #. Alcohol detox Continue CIWA protocol Continue high-dose thiamine and folic acid # Atelectasis Patient not SOB and is currently stable. Incentive spirometry #Hypoalbuminemia due to malnutrition 2/2 chronic diarrhea Patient has better mentation and better appetite. Encourage oral intake #. Hypokalemia, due to chronic diarrhea, resolved K now at 3.5 Continue lactobacillus General Surgery eval the patient, we will standby for colonoscopy. On regular diet #. Hypophosphatemia, due to chronic diarrhea, resolved Phos normal at 3.6 #. Macrocytosis likely due to alcohol abuse MCV at 105.4 Follow up serum B12 and folate levels CBC at AM # Hypomagnesemia likely due to diarrhea and vomiting, resolved Mag now at 1.7 #. Prerenal azotemia likely due to above, unknown baseline of creatinine Patient is currently asymptomatic and has no history of CKD Will monitor for now #. Elevated troponins, likely due to increased demand (type II), resolved Patient is not symptomatic and stable. troponin trend downward at 0.031 #. CHF, not in exacerbation (EF 45-50% echo in 09/2018) patient is asymptomatic, and actually fluid depleted, pro BNP of 1570 Chronic conditions: Osteoarthritis, hypertension, hyperlipidemia, CVA/TIA, vascular disorder, pacemaker placement, former smoker, A-fib Attestation I have seen and examined this patient with my resident , discussed the same with the resident/RENÉ, and agree with the dictator's assessment and plan as written Dr. Srikanth lau Objective - Vital Signs Vital signs: Vital Signs Temp 97.7 F 02/13/24 04:00 Pulse 64 02/13/24 04:00 Resp 16 02/13/24 04:00 BP 143/79 02/13/24 04:00 Pulse Ox 95 02/13/24 04:00 FiO2 Intake & Output 02/12/24 02/13/24 02/13/24 18:59 06:59 18:59 Intake Total 0 Output Total 200 Balance -200 Weight 72.9 kg Intake: Oral 0 Output: Urine 200 Other: Voiding Method Toilet Diaper # Voids 1 2 - Labs CBC & Chem 7: 02/18/24 06:53 02/19/24 07:23 Labs: Abnormal Lab Results - Last 24 Hours (Table) 02/12/24 Range/Units 03:05 Magnesium 1.4 L (1.6-2.3) mg/dL
--- NOTE | 2024-02-13 12:15 | P.PN ---
Subjective Progress Note Date: 02/13/24 Principal diagnosis: Reason for follow-up is chronic diarrhea Patient is a 78-year-old male with a past medical history significant for atrial fibrillation CVA TIA hyperlipidemia hypertension osteoarthritis patient presenting to the hospital with diarrhea that has been chronic for him however over the last 5 weeks the patient seem to have more extensive, patient did have CT abdominal pelvis did not show any acute inflammation there was concern for possible mesenteric ischemia. On today's evaluation that is 02/13/2024, Patient is afebrile this morning patient is more awake and alert per the daughter at the bedside and was up to the bathroom to have a bowel movement still having some diarrhea but no vomiting or any other changes were reported. The patient white count 6.7, creatinine 0.71 stool studies requested and interestingly not sent Objective - Vital Signs Vital signs: Vital Signs Temp 98.5 F 02/13/24 09:38 Pulse 72 02/13/24 11:23 Resp 16 02/13/24 11:23 BP 132/70 02/13/24 09:38 Pulse Ox 96 02/13/24 09:38 FiO2 Intake & Output 02/12/24 02/13/24 02/13/24 18:59 06:59 18:59 Intake Total 0 236 Output Total 200 350 Balance -200 -114 Weight 72.9 kg Intake: Oral 0 236 Output: Urine 200 350 Other: Voiding Method Toilet Toilet Diaper Diaper # Voids 1 2 # Bowel Movements 1 - Exam GENERAL DESCRIPTION: An elderly male lying in bed in no distress RESPIRATORY SYSTEM: Unlabored breathing , decreased breath sounds at bases HEART: S1 S2 regular rate and rhythm , ABDOMEN: Soft , no tenderness EXTREMITIES: No edema feet - Labs CBC & Chem 7: 02/13/24 09:25 02/13/24 09:25 Labs: Abnormal Lab Results - Last 24 Hours (Table) 02/13/24 02/13/24 Range/Units 09: 09:25 RBC 3.16 L (4.30-5.90) m/uL Hgb 10.7 L (13.0-17.5) gm/dL Hct 33.4 L (39.0-53.0) % MCV 105.8 H (80.0-100.0) fL RDW 15.8 H (11.5-15.5) % Chloride 115 H (98-107) mmol/L Assessment and Plan (1) Diarrhea Current Visit: Yes Status: Acute Code(s): R19.7 - DIARRHEA, UNSPECIFIED SNOMED Code(s): 54905362 Plan: 1patient presented hospital with chronic diarrhea with recent flareup patient did not have any recent antibiotic exposure, stool for C. difficile EIA was negative CT abdominal pelvis did not show any acute inflammatory changes questionably related to ischemic bowel as there was concern for atherosclerotic disease of the mesenteric vasculature 2nursing staff need to send the sample for for C. difficile PCR and also stool culture and stool for Cryptosporidium to complete the workup for infectious etiology 3General Surgery has been on the case and the patient benefit from possible colonoscopy and biopsy once patient more awake and cooperates with the bowel prep 4patient to continue with [facility] discussed with daughter at the bedside question concern answered Dictation was produced using [employer] dictation software. please excuse any grammatical, word or spelling errors. Time with Patient: Less than 30
--- NOTE | 2024-02-14 08:49 | P.PN ---
Subjective Progress Note Date: 02/14/24 Patient is still confused. He is tolerating her diet. On exam vital signs appear stable. Abdomen is soft. Patient will remain on standby for endoscopy if needed. Objective - Vital Signs Vital signs: Vital Signs Temp 97.9 F 02/14/24 04:00 Pulse 61 02/14/24 04:00 Resp 16 02/14/24 04:00 BP 152/57 02/14/24 04:00 Pulse Ox 97 02/14/24 04:00 FiO2 Intake & Output 02/13/24 02/14/24 02/14/24 18:59 06:59 18:59 Intake Total 236 Output Total 350 Balance -114 Weight 74.9 kg Intake: Oral 236 Output: Urine 350 Other: Voiding Method Toilet Toilet Diaper Diaper # Voids 1 1 # Bowel Movements 1 - Labs CBC & Chem 7: 02/13/24 09:25 02/13/24 09:25 Labs: Abnormal Lab Results - Last 24 Hours (Table) 02/13/24 02/13/24 Range/Units 09:25 09:25 RBC 3.16 L (4.30-5.90) m/uL Hgb 10.7 L (13.0-17.5) gm/dL Hct 33.4 L (39.0-53.0) % MCV 105.8 H (80.0-100.0) fL RDW 15.8 H (11.5-15.5) % Chloride 115 H (98-107) mmol/L
[2024-02-14 09:36] LABS: Anisocytosis Slight; Basophils % (A) 1 %; Eosinophils # (A) 0.2 k/uL (0-0.7); Eosinophils % (A) 5 %; HCT 38.9 % (39.0-53.0); HGB 12.4 gm/dL (13.0-17.5); Hypochromasia Slight; Lymphocytes # (A) 0.7 k/uL (1.0-4.8); Lymphocytes % (A) 14 %; MCH 34.1 pg (25.0-35.0); MCHC 31.8 g/dL (31.0-37.0); MCV 107.3 fL (80.0-100.0); Macrocytosis Marked; Mean Platelet Volume 8.3; Monocytes # (A) 0.3 k/uL (0-1.0); Monocytes % (A) 5 %; Neutrophils # (A) 3.6 k/uL (1.3-7.7); Neutrophils % (A) 73 %; Platelet Count 243 k/uL (150-450); RBC 3.63 m/uL (4.30-5.90); RDW 16.2 % (11.5-15.5)
[2024-02-14 10:01] LABS: ALT 26 U/L (4-49); AST 50 U/L (17-59); African American GFR (CKD) >90 (>60 ml/min/1.73 sqM); Albumin 3.1 g/dL (3.5-5.0); Alkaline Phosphatase 72 U/L (38-126); Anion Gap 7 mmol/L; Blood Urea Nitrogen 11 mg/dL (9-20); Calcium 9.6 mg/dL (8.4-10.2); Carbon Dioxide 21 mmol/L (22-30); Chloride 111 mmol/L (98-107); Glucose 118 mg/dL (74-99); Non-African American GFR(CKD) >90 (>60 ml/min/1.73 sqM); Potassium 3.1 mmol/L (3.5-5.1); Sodium 139 mmol/L (137-145); Total Bilirubin 1.1 mg/dL (0.2-1.3); Total Protein 6.2 g/dL (6.3-8.2)
--- NOTE | 2024-02-14 10:57 | P.PN ---
Subjective Patient is a 78-year-old male with a history of A-fib, CVA/TIA, former smoker, vascular disorder (with left and right leg vessel bypass) who came in to our ED due to syncope. Patient reports that it occurred last night where in he "blacked out'. He also reports 3 weeks ago, he began to have diarrhea watery in consistency with a brownish color without any blood occurring once a day for 3 to 5 days. Frequency of diarrheal episodes increased in the coming days. He also reports he started to have vomiting 2 weeks ago that was watery, brownish in color, with no blood and no undigested food. He denies any subjective fevers, cough, abdominal pain, jaundice, headaches, seizures, recent travel, changes in diet, sweats, and weight loss. 02/10. Patient seen and examined. Potassium levels has improved. Phosphorus is still low. Still having diarrhea. General surgery evaluated patient, recommend doing colonoscopy. Patient is confused, family stated that the patient drinks up to 7-8 beers daily, patient could be detoxing at this time. 02/11 Patient is seen and examined at bedside. Reported to still have diarrhea overnight that is watery, brown in color but less less volume. Family reports patient is less confused denies any blood in his stool, vomiting, loss of consciousness, seizures, headaches, dizziness. Potassium level at 3.4. Phosphorus at normal level. 02/12 Patient is seen and examined at bedside. Reported no episodes of diarrhea overnight. Per family at bedside, mentation improved and more alert. 02/13 patient seen and examined at bedside. Reports 2 episodes of diarrhea overnight with watery stool. Per family at bedside, patient's mentation is improved. He denies any abdominal pain, hematochezia, nausea, vomiting, or hematemesis Review of systems: Pertinent positives and negatives as discussed in HPI, a complete review of systems was performed and all other systems are negative. Physical examination: Vital signs reviewed General: non toxic, not distress, appears at stated age, normal weight Derm: no unusual rashes/lesions, warm Head: atraumatic, normocephalic, symmetric Eyes: EOMI, no lid lag, anicteric sclera, pupils equal round reactive to light ENT: Nose and ears atraumatic Neck: No cervical lymphadenopathy, trachea midline, supple Mouth: no lip lesion, mucus membranes moist Cardiovascular: NRRR, 3/6 murmur loudest at second right ICS Lungs: Wheezing in bilateral lower lung knutson, no accessory muscle use Abdominal: soft, nontender to palpation, no guarding Ext: muscle strength 5 out of 5 in all 4 extremities grossly, no gross muscle atrophy, no contractures, positive dorsalis pedis pulse bilateral, no edema Neuro: CN II-XI grossly intact, no gross focal neuro deficits Psych: Alert, lethargic, appropriate affect and mood Assessment/Plan: #. Syncope likely orthostatic due to chronic diarrhea, resolved Negative C. difficile PCR results. Patient has not had an episode of syncope. Check orthostatics Stool cultures pending #. Acute metabolic encephalopathy, improving #. Alcohol abuse #. Alcohol detox Patient mentation is improved today. Continue CIWA protocol Continue high-dose thiamine and folic acid # Atelectasis, improving Patient not SOB and is currently stable. Incentive spirometry #Hypoalbuminemia due to malnutrition 2/2 chronic diarrhea Patient has better mentation and better appetite. Encourage oral intake CMP at AM #. Hypokalemia, due to chronic diarrhea, improving K now at 3.1 Continue lactobacillus Order potassium 40 mEq p.o. once Continue with potassium replacement per protocol BMP at a.m. General Surgery eval the patient, we will standby for colonoscopy. On regular diet #. Hypophosphatemia, due to chronic diarrhea Phos normal at 3.6 but patient is still having episodes of diarrhea Check phosphorus at AM. Continue with phosphorus replacement per protocol #. Macrocytosis likely due to alcohol abuse MCV at 107.3. On folate intake. Follow up serum B12 and folate levels CBC at AM # Hypomagnesemia likely due to diarrhea and vomiting, resolved Mag now at 1.9 but patient is still having episodes of diarrhea Check Mag at AM #. Prerenal azotemia likely due to above, unknown baseline of creatinine Patient is currently asymptomatic and has no history of CKD Will monitor for now #. Elevated troponins, likely due to increased demand (type II), resolved Patient is not symptomatic and stable. troponin trend downward at 0.031 #. CHF, not in exacerbation (EF 45-50% echo in 09/2018) patient is asymptomatic, and actually fluid depleted, pro BNP of 1570 Chronic conditions: Osteoarthritis, hypertension, hyperlipidemia, CVA/TIA, vascular disorder, pacemaker placement, former smoker, A-fib Attestation: I have personally seen and examined the patient with Resident, reviewed the documentation and participated and agree with the assessment and plan as written. Objective - Vital Signs Vital signs: Vital Signs Temp 97.9 F 02/14/24 04:00 Pulse 61 02/14/24 04:00 Resp 16 02/14/24 04:00 BP 152/57 02/14/24 04:00 Pulse Ox 97 02/14/24 04:00 FiO2 Intake & Output 02/13/24 02/14/24 02/14/24 18:59 06:59 18:59 Intake Total 236 Output Total 350 Balance -114 Weight 74.9 kg Intake: Oral 236 Output: Urine 350 Other: Voiding Method Toilet Toilet Diaper Diaper # Voids 1 1 # Bowel Movements 1 - Labs CBC & Chem 7: 02/14/24 08:55 02/14/24 07:50 Labs: Abnormal Lab Results - Last 24 Hours (Table) 02/13/24 02/13/24 Range/Units 09:25 09:25 RBC 3.16 L (4.30-5.90) m/uL Hgb 10.7 L (13.0-17.5) gm/dL Hct 33.4 L (39.0-53.0) % MCV 105.8 H (80.0-100.0) fL RDW 15.8 H (11.5-15.5) % Chloride 115 H (98-107) mmol/L
[2024-02-14] MEDS: POTASSIUM CHLORIDE ER 20 MEQ TAB.ER PO STA (11:56)
--- NOTE | 2024-02-14 19:08 | P.PN ---
Subjective Progress Note Date: 02/14/24 Principal diagnosis: Reason for follow-up is chronic diarrhea Patient is a 78-year-old male with a past medical history significant for atrial fibrillation CVA TIA hyperlipidemia hypertension osteoarthritis patient presenting to the hospital with diarrhea that has been chronic for him however over the last 5 weeks the patient seem to have more extensive, patient did have CT abdominal pelvis did not show any acute inflammation there was concern for possible mesenteric ischemia. On today's evaluation that is 02/14/2024,the patient denies any fever or any chills, patient is breathing comfortably on room air, the patient denies chest pain shortness of breath and no significant cough, patient denies abdominal pain, no nausea vomiting diarrhea has slowed down but not completely resolved. Patient white count is 5.0, creatinine 0.67 Objective - Vital Signs Vital signs: Vital Signs Temp 97.9 F 02/14/24 04:00 Pulse 61 02/14/24 04:00 Resp 16 02/14/24 04:00 BP 152/57 02/14/24 04:00 Pulse Ox 97 02/14/24 04:00 FiO2 Intake & Output 02/13/24 02/14/24 02/14/24 18:59 06:59 18:59 Intake Total 236 Output Total 350 Balance -114 Weight 74.9 kg Intake: Oral 236 Output: Urine 350 Other: Voiding Method Toilet Toilet Diaper Diaper # Voids 1 1 # Bowel Movements 1 - Exam GENERAL DESCRIPTION: An elderly male lying in bed in no distress RESPIRATORY SYSTEM: Unlabored breathing , decreased breath sounds at bases HEART: S1 S2 regular rate and rhythm , ABDOMEN: Soft , no tenderness EXTREMITIES: No edema feet - Labs CBC & Chem 7: 02/14/24 08:55 02/14/24 07:50 Labs: Abnormal Lab Results - Last 24 Hours (Table) 02/13/24 02/13/24 Range/Units 09:25 09:25 RBC 3.16 L (4.30-5.90) m/uL Hgb 10.7 L (13.0-17.5) gm/dL Hct 33.4 L (39.0-53.0) % MCV 105.8 H (80.0-100.0) fL RDW 15.8 H (11.5-15.5) % Chloride 115 H (98-107) mmol/L Assessment and Plan (1) Diarrhea Current Visit: Yes Status: Acute Code(s): R19.7 - DIARRHEA, UNSPECIFIED SNOMED Code(s): 47943691 Plan: 1patient presented hospital with chronic diarrhea with recent flareup patient did not have any recent antibiotic exposure, stool for C. difficile EIA was negative CT abdominal pelvis did not show any acute inflammatory changes que stionably related to ischemic bowel as there was concern for atherosclerotic disease of the mesenteric vasculature 2General Surgery has been on the case and the patient benefit from possible colonoscopy and biopsy once patient more awake and cooperates with the bowel prep 3for now patient to continue with [facility] and monitor clinical course closely Family at the bedside question concern answered Dictation was produced using [employer] dictation software. please excuse any grammatical, word or spelling errors. Time with Patient: Less than 30
[2024-02-15 08:30] LABS: Anion Gap 2 mmol/L; Carbon Dioxide 23 mmol/L (22-30); Chloride 113 mmol/L (98-107); Glucose 83 mg/dL (74-99); Potassium 3.5 mmol/L (3.5-5.1); Sodium 138 mmol/L (137-145)
[2024-02-15 08:31] LABS: ALT 27 U/L (4-49); AST 47 U/L (17-59); African American GFR (CKD) >90 (>60 ml/min/1.73 sqM); Albumin 2.6 g/dL (3.5-5.0); Alkaline Phosphatase 60 U/L (38-126); Blood Urea Nitrogen 10 mg/dL (9-20); Calcium 9.1 mg/dL (8.4-10.2); Magnesium 1.4 mg/dL (1.6-2.3); Non-African American GFR(CKD) 88 (>60 ml/min/1.73 sqM); Phosphorus 2.9 mg/dL (2.5-4.5); Total Bilirubin 0.7 mg/dL (0.2-1.3); Total Protein 5.3 g/dL (6.3-8.2)
--- NOTE | 2024-02-15 08:36 | P.PN ---
Subjective Progress Note Date: 02/15/24 Patient renea stable. There are no acute changes. Objective - Vital Signs Vital signs: Vital Signs Temp 97.5 F L 02/15/24 04:00 Pulse 66 02/15/24 04:00 Resp 16 02/15/24 04:00 BP 135/58 02/15/24 04:00 Pulse Ox 97 02/15/24 04:00 FiO2 Intake & Output 02/14/24 02/15/24 02/15/24 18:59 06:59 18:59 Intake Total 1600 600 Balance 1600 600 Weight 75.9 kg Intake: Intake, IV Titration 600 Amount Lactated Ringers 1,000 ml 600 @ 50 mls/hr IV .Q20H [facility] Rx#:[id number] Oral 1000 600 Other: Voiding Method Toilet Toilet Diaper Diaper # Voids 1 # Bowel Movements 1 - Labs CBC & Chem 7: 02/14/24 08:55 02/15/24 07:15 Labs: Abnormal Lab Results - Last 24 Hours (Table) 02/14/24 02/14/24 02/15/24 Range/Units 07:50 08:55 07:15 RBC 3.63 L (4.30-5.90) m/uL Hgb 12.4 L (13.0-17.5) gm/dL Hct 38.9 L (39.0-53.0) % MCV 107.3 H (80.0-100.0) fL RDW 16.2 H (11.5-15.5) % Lymphocytes # 0.7 L (1.0-4.8) k/uL Macrocytosis Marked A Potassium 3.1 L (3.5-5.1) mmol/L Chloride 111 H 113 H (98-107) mmol/L Carbon Dioxide 21 L (22-30) mmol/L Glucose 118 H (74-99) mg/dL Magnesium 1.4 L (1.6-2.3) mg/dL Total Protein 6.2 L 5.3 L (6.3-8.2) g/dL Albumin 3.1 L 2.6 L (3.5-5.0) g/dL
[2024-02-15 09:01] LABS: Basophils % (A) 0 %; Eosinophils # (A) 0.2 k/uL (0-0.7); Eosinophils % (A) 3 %; HCT 32.6 % (39.0-53.0); HGB 10.4 gm/dL (13.0-17.5); Hypochromasia Moderate; Lymphocytes # (A) 0.9 k/uL (1.0-4.8); Lymphocytes % (A) 18 %; MCH 33.6 pg (25.0-35.0); MCHC 31.9 g/dL (31.0-37.0); MCV 105.3 fL (80.0-100.0); Macrocytosis Moderate; Mean Platelet Volume 7.8; Monocytes # (A) 0.3 k/uL (0-1.0); Monocytes % (A) 6 %; Neutrophils # (A) 3.3 k/uL (1.3-7.7); Neutrophils % (A) 69 %; Platelet Count 253 k/uL (150-450); RDW 15.5 % (11.5-15.5); WBC 4.8 k/uL (3.8-10.6)
[2024-02-15 14:16] VITALS: BMI 22.6
--- NOTE | 2024-02-15 14:42 | P.PN ---
Subjective Progress Note Date: 02/15/24 Interval History: Patient is a 78-year-old male with a history of A-fib, CVA/TIA, former smoker, vascular disorder (with left and right leg vessel bypass) who came in to our ED due to syncope. Patient reports that it occurred last night where in he "blacked out'. He also reports 3 weeks ago, he began to have diarrhea watery in consistency with a brownish color without any blood occurring once a day for 3 to 5 days. Frequency of diarrheal episodes increased in the coming days. He also reports he started to have vomiting 2 weeks ago that was watery, brownish in color, with no blood and no undigested food. He denies any subjective fevers, cough, abdominal pain, jaundice, headaches, seizures, recent travel, changes in diet, sweats, and weight loss. 02/10. Patient seen and examined. Potassium levels has improved. Phosphorus is still low. Still having diarrhea. General surgery evaluated patient, recommend doing colonoscopy. Patient is confused, family stated that the patient drinks up to 7-8 beers daily, patient could be detoxing at this time. 02/11 Patient is seen and examined at bedside. Reported to still have diarrhea overnight that is watery, brown in color but less less volume. Family reports patient is less confused denies any blood in his stool, vomiting, loss of consciousness, seizures, headaches, dizziness. Potassium level at 3.4. Phosphorus at normal level. 02/12 Patient is seen and examined at bedside. Reported no episodes of diarrhea overnight. Per family at bedside, mentation improved and more alert. 02/13 patient seen and examined at bedside. Reports 2 episodes of diarrhea overnight with watery stool. Per family at bedside, patient's mentation is improved. He denies any abdominal pain, hematochezia, nausea, vomiting, or hematemesis 02/14--patient was seen and examined today. Patient reported loose stools multiple bowel movement today. Family at bedside. General surgery following, plan for potential colonoscopy on Friday. Vitals unremarkable. WBCs 4.8, hemoglobin 10.4, platelets 253 BMP mostly unremarkable, magnesium 1.4, replaced. Assessment and plan: . Syncope likely orthostatic due to chronic diarrhea, resolved Negative C. difficile PCR results. Patient has not had an episode of syncope. Check orthostatics Stool cultures pending #. Acute metabolic encephalopathy, improving #. Alcohol abuse #. Alcohol detox Patient mentation is improved today. Continue CIWA protocol Continue high-dose thiamine and folic acid # Atelectasis, improving Patient not SOB and is currently stable. Incentive spirometry #Hypoalbuminemia due to malnutrition 2/2 chronic diarrhea Patient has better mentation and better appetite. Encourage oral intake CMP at AM #. Hypokalemia, due to chronic diarrhea, improving K now at 3.1 Continue lactobacillus Order potassium 40 mEq p.o. once Continue with potassium replacement per protocol BMP at a.m. General Surgery eval the patient, we will standby for colonoscopy. On regular diet #. Hypophosphatemia, due to chronic diarrhea Phos normal at 3.6 but patient is still having episodes of diarrhea Check phosphorus at AM. Continue with phosphorus replacement per protocol #. Macrocytosis likely due to alcohol abuse MCV at 107.3. On folate intake. Follow up serum B12 and folate levels CBC at AM # Hypomagnesemia likely due to diarrhea and vomiting, resolved Mag now at 1.9 but patient is still having episodes of diarrhea Check Mag at AM #. Prerenal azotemia likely due to above, unknown baseline of creatinine Patient is currently asymptomatic and has no history of CKD Will monitor for now #. Elevated troponins, likely due to increased demand (type II), resolved Patient is not symptomatic and stable. troponin trend downward at 0.031 #. CHF, not in exacerbation (EF 45-50% echo in 09/2018) patient is asymptomatic, and actually fluid depleted, pro BNP of 1570 Chronic conditions: Osteoarthritis, hypertension, hyperlipidemia, CVA/TIA, vascular disorder, pacemaker placement, former smoker, A-fib DVT prophylaxis: SCD PHYSICAL EXAMINATION: GENERAL: The patient is A&O x3, NAD HEENT: EOMI, Sclerae anicteric, Moist Mucous membranes Neck: Supple, Non tender, No JVD PULMONARY: Equal breath souds B/L, No wheezing, No crackles. CARDIOVASCULAR: S1, S2 present. No murmurs, rubs, or gallops. ABDOMEN: Soft, nontender, nondistended, normoactive bowel sounds. No guarding or rebound tenderness. MUSCULOSKELETAL: No edema, No cyanosis. No clubbing. Normal ROM. Intact peripheral pulses. EXTREMITIES: No cyanosis, clubbing, or pedal edema. NEUROLOGICAL: CN 2-12 grossly intact. No FND Skin: No Rash REVIEW OF SYSTEMS: CONSTITUTIONAL: No fever or chills. CARDIOVASCULAR: No chest pain, palpitations or syncope. PULMONARY: No shortness of breath, no cough, sore throat. GASTROINTESTINAL: No nausea, vomiting, diarrhea, abdominal pain. : No Dysuria, urgency, frequency. Extremities: No edema. NEUROLOGICAL: No headaches, no weakness, or numbness Dictation was produced using [employer] dictation software. please excuse any grammatical, word or spelling errors. Objective - Vital Signs Vital signs: Vital Signs Temp 97.5 F L 02/15/24 09:07 Pulse 63 02/15/24 14:26 Resp 18 02/15/24 14:26 BP 138/63 02/15/24 12:04 Pulse Ox 97 02/15/24 12:04 FiO2 Intake & Output 02/14/24 02/15/24 02/15/24 18:59 06:59 18:59 Intake Total 1600 718 Balance 1600 718 Weight 75.9 kg 75.9 kg Intake: Intake, IV Titration 600 Amount Lactated Ringers 1,000 ml 600 @ 50 mls/hr IV .Q20H [facility] Rx#:[id number] Oral 1000 718 Other: Voiding Method Toilet Toilet Toilet Diaper Diaper Diaper # Voids 1 # Bowel Movements 1 - Labs CBC & Chem 7: 02/15/24 07:15 02/15/24 07:15 Labs: Abnormal Lab Results - Last 24 Hours (Table) 02/15/24 02/15/24 02/15/24 Range/Units 07:15 07:15 07:15 RBC 3.10 L (4.30-5.90) m/uL Hgb 10.4 L (13.0-17.5) gm/dL Hct 32.6 L (39.0-53.0) % MCV 105.3 H (80.0-100.0) fL Lymphocytes # 0.9 L (1.0-4.8) k/uL Chloride 113 H (98-107) mmol/L Magnesium 1.4 L (1.6-2.3) mg/dL Total Protein 5.3 L (6.3-8.2) g/dL Albumin 2.6 L (3.5-5.0) g/dL Vitamin B12 1314.0 H (200.0-944.0) pg/mL
[2024-02-15] MEDS: CHOLESTYRAMINE (WITH SUGAR) 4 GM PACKET PO SCH (16:22)
[2024-02-15] MEDS: MAGNESIUM SULFATE-D5W PMX 1 GM in DEXTROSE/WATER 1 100ML.BAG IVPB SCH (16:22)
--- NOTE | 2024-02-15 18:09 | P.PN ---
Subjective Progress Note Date: 02/15/24 Principal diagnosis: Reason for follow-up is chronic diarrhea Patient is a 78-year-old male with a past medical history significant for atrial fibrillation CVA TIA hyperlipidemia hypertension osteoarthritis patient presenting to the hospital with diarrhea that has been chronic for him however over the last 5 weeks the patient seem to have more extensive, patient did have CT abdominal pelvis did not show any acute inflammation there was concern for possible mesenteric ischemia. On today's evaluation that is 02/15/2024,the patient remains to be afebrile, patient is on room air not requiring supplemental oxygen and denies any shortness of breath no chest pain or cough.Patient denies having any nausea or vomiting, no abdominal pain did have recurrence of diarrhea as reported by the daughter. The patient white count is 4.8, creatinine 0.73 Objective - Vital Signs Vital signs: Vital Signs Temp 97.5 F L 02/15/24 09:07 Pulse 60 02/15/24 16:18 Resp 18 02/15/24 16:18 BP 135/64 02/15/24 16:18 Pulse Ox 98 02/15/24 16:18 FiO2 Intake & Output 02/14/24 02/15/24 02/15/24 18:59 06:59 18:59 Intake Total 1600 718 Balance 1600 718 Weight 75.9 kg 75.9 kg Intake: Intake, IV Titration 600 Amount Lactated Ringers 1,000 ml 600 @ 50 mls/hr IV .Q20H [facility] Rx#:[id number] Oral 1000 718 Other: Voiding Method Toilet Toilet Toilet Diaper Diaper Diaper # Voids 1 # Bowel Movements 1 - Exam GENERAL DESCRIPTION: An elderly male lying in bed in no distress RESPIRATORY SYSTEM: Unlabored breathing , decreased breath sounds at bases HEART: S1 S2 regular rate and rhythm , ABDOMEN: Soft , no tenderness EXTREMITIES: No edema feet - Labs CBC & Chem 7: 02/15/24 07:15 02/15/24 07:15 Labs: Abnormal Lab Results - Last 24 Hours (Table) 02/15/24 02/15/24 02/15/24 Range/Units 07:15 07:15 07:15 RBC 3.10 L (4.30-5.90) m/uL Hgb 10.4 L (13.0-17.5) gm/dL Hct 32.6 L (39.0-53.0) % MCV 105.3 H (80.0-100.0) fL Lymphocytes # 0.9 L (1.0-4.8) k/uL Chloride 113 H (98-107) mmol/L Magnesium 1.4 L (1.6-2.3) mg/dL Total Protein 5.3 L (6.3-8.2) g/dL Albumin 2.6 L (3.5-5.0) g/dL Vitamin B12 1314.0 H (200.0-944.0) pg/mL Assessment and Plan (1) Diarrhea Current Visit: Yes Status: Acute Code(s): R19.7 - DIARRHEA, UNSPECIFIED SNOMED Code(s): 12830510 Plan: 1patient presented hospital with chronic diarrhea with recent flareup patient did not have any recent antibiotic exposure, stool for C. difficile EIA was negative CT abdominal pelvis did not show any acute inflammatory changes questionably related to ischemic bowel as there was concern for atherosclerotic disease of the mesenteric vasculature 2General Surgery has been on the case and the patient benefit from possible colonoscopy and biopsy once patient more awake and cooperates with the bowel prep 3patient is currently covered with [facility] stool studies has been collected results will be followed Dictation was produced using [employer] dictation software. please excuse any grammatical, word or spelling errors. Time with Patient: Less than 30
[2024-02-16 08:05] LABS: Anisocytosis Slight; Basophils % (A) 0 %; Eosinophils # (A) 0.2 k/uL (0-0.7); Eosinophils % (A) 3 %; HCT 33.7 % (39.0-53.0); HGB 10.9 gm/dL (13.0-17.5); Hypochromasia Slight; Lymphocytes # (A) 0.8 k/uL (1.0-4.8); Lymphocytes % (A) 14 %; MCH 34.3 pg (25.0-35.0); MCHC 32.4 g/dL (31.0-37.0); Macrocytosis Moderate; Mean Platelet Volume 7.8; Monocytes # (A) 0.4 k/uL (0-1.0); Monocytes % (A) 7 %; Neutrophils % (A) 72 %; Platelet Count 240 k/uL (150-450); RBC 3.18 m/uL (4.30-5.90); RDW 16.1 % (11.5-15.5); WBC 5.6 k/uL (3.8-10.6)
[2024-02-16 08:19] LABS: ALT 29 U/L (4-49); AST 49 U/L (17-59); African American GFR (CKD) >90 (>60 ml/min/1.73 sqM); Albumin 2.8 g/dL (3.5-5.0); Alkaline Phosphatase 70 U/L (38-126); Anion Gap 3 mmol/L; Blood Urea Nitrogen 8 mg/dL (9-20); Calcium 9.1 mg/dL (8.4-10.2); Carbon Dioxide 21 mmol/L (22-30); Chloride 113 mmol/L (98-107); Glucose 96 mg/dL (74-99); Magnesium 1.7 mg/dL (1.6-2.3); Non-African American GFR(CKD) >90 (>60 ml/min/1.73 sqM); Potassium 3.5 mmol/L (3.5-5.1); Sodium 137 mmol/L (137-145); Total Bilirubin 0.6 mg/dL (0.2-1.3); Total Protein 5.4 g/dL (6.3-8.2)
--- NOTE | 2024-02-16 08:36 | P.PN ---
Subjective Progress Note Date: 02/16/24 Patient remains unchanged. Will remain on surgical standby. Objective - Vital Signs Vital signs: Vital Signs Temp 97.8 F 02/16/24 04:00 Pulse 59 L 02/16/24 04:00 Resp 16 02/16/24 04:00 BP 135/45 02/16/24 04:00 Pulse Ox 94 L 02/16/24 04:00 FiO2 Intake & Output 02/15/24 02/16/24 02/16/24 18:59 06:59 18:59 Intake Total 1016 Balance 1016 Weight 75.9 kg 77.6 kg Intake: Oral 1016 Other: Voiding Method Toilet Toilet Diaper Diaper # Voids 1 - Labs CBC & Chem 7: 02/16/24 07:32 02/16/24 07:32 Labs: Abnormal Lab Results - Last 24 Hours (Table) 02/15/24 02/15/24 02/16/24 Range/Units 07:15 07:15 07:32 RBC 3.10 L (4.30-5.90) m/uL Hgb 10.4 L (13.0-17.5) gm/dL Hct 32.6 L (39.0-53.0) % MCV 105.3 H (80.0-100.0) fL RDW (11.5-15.5) % Lymphocytes # 0.9 L (1.0-4.8) k/uL Chloride 113 H (98-107) mmol/L Carbon Dioxide 21 L (22-30) mmol/L BUN 8 L (9-20) mg/dL Total Protein 5.4 L (6.3-8.2) g/dL Albumin 2.8 L (3.5-5.0) g/dL Vitamin B12 1314.0 H (200.0-944.0) pg/mL 02/16/24 Range/Units 07:32 RBC 3.18 L (4.30-5.90) m/uL Hgb 10.9 L (13.0-17.5) gm/dL Hct 33.7 L (39.0-53.0) % MCV 106.0 H (80.0-100.0) fL RDW 16.1 H (11.5-15.5) % Lymphocytes # 0.8 L (1.0-4.8) k/uL Chloride (98-107) mmol/L Carbon Dioxide (22-30) mmol/L BUN (9-20) mg/dL Total Protein (6.3-8.2) g/dL Albumin (3.5-5.0) g/dL Vitamin B12 (200.0-944.0) pg/mL
[2024-02-16] MEDS: PEG 3350 (236 GM/BTL) + LYTES 4,000 ML BOTTLE PO ONE (11:23)
--- NOTE | 2024-02-16 17:55 | P.PN ---
Subjective Patient is a 78-year-old male with a history of A-fib, CVA/TIA, former smoker, vascular disorder (with left and right leg vessel bypass) who came in to our ED due to syncope. Patient reports that it occurred last night where in he "blacked out'. He also reports 3 weeks ago, he began to have diarrhea watery in consistency with a brownish color without any blood occurring once a day for 3 to 5 days. Frequency of diarrheal episodes increased in the coming days. He also reports he started to have vomiting 2 weeks ago that was watery, brownish in color, with no blood and no undigested food. He denies any subjective fevers, cough, abdominal pain, jaundice, headaches, seizures, recent travel, changes in diet, sweats, and weight loss. 02/10. Patient seen and examined. Potassium levels has improved. Phosphorus is still low. Still having diarrhea. General surgery evaluated patient, recommend doing colonoscopy. Patient is confused, family stated that the patient drinks up to 7-8 beers daily, patient could be detoxing at this time. 02/11 Patient is seen and examined at bedside. Reported to still have diarrhea overnight that is watery, brown in color but less less volume. Family reports patient is less confused denies any blood in his stool, vomiting, loss of consciousness, seizures, headaches, dizziness. Potassium level at 3.4. Phosphorus at normal level. 02/12 Patient is seen and examined at bedside. Reported no episodes of diarrhea overnight. Per family at bedside, mentation improved and more alert. 02/13 patient seen and examined at bedside. Reports 2 episodes of diarrhea overnight with watery stool. Per family at bedside, patient's mentation is improved. He denies any abdominal pain, hematochezia, nausea, vomiting, or hematemesis 02/14 02/14--patient was seen and examined today. Patient reported loose stools multiple bowel movement today. Family at bedside. General surgery following, plan for potential colonoscopy on Friday. Vitals unremarkable. WBCs 4.8, hemoglobin 10.4, platelets 253 BMP mostly unremarkable, magnesium 1.4, replaced. 02/15 patient seen and examined at bedside. Patient reports 4 bowel movements the past day with loose semisolid to liquid stools. Family at bedside. Still waiting for colonoscopy for tomorrow. WBC 5.6 MCV 106 magnesium 1.7 total protein 5.4 albumin 2.8 Review of systems: Pertinent positives and negatives as discussed in HPI, a complete review of systems was performed and all other systems are negative. Physical examination: Vital signs reviewed General: non toxic, not distress, appears at stated age, normal weight Derm: no unusual rashes/lesions, warm Head: atraumatic, normocephalic, symmetric Eyes: EOMI, no lid lag, anicteric sclera, pupils equal round reactive to light ENT: Nose and ears atraumatic Neck: No cervical lymphadenopathy, trachea midline, supple Mouth: no lip lesion, mucus membranes moist Cardiovascular: NRRR, 3/6 murmur loudest at second right ICS Lungs: Crackles in bilateral lower lung knutson, no accessory muscle use Abdominal: soft, nontender to palpation, no guarding Ext: muscle strength 5 out of 5 in all 4 extremities grossly, no gross muscle atrophy, no contractures, positive dorsalis pedis pulse bilateral, no edema Neuro: CN II-XI grossly intact, no gross focal neuro deficits Psych: Alert, lethargic, appropriate affect and mood Assessment/Plan: #. Syncope likely orthostatic due to chronic diarrhea, resolved Negative C. difficile PCR results. Patient has not had an episode of syncope. Check orthostatics Stool cultures pending #. Acute metabolic encephalopathy, resolved #. Alcohol abuse #. Alcohol detox Patient mentation is improved today. Patient's last drink was 7 days ago. Continue CIWA protocol # Atelectasis, improving Patient not SOB and is currently stable. Incentive spirometry #Hypoalbuminemia due to malnutrition 2/2 chronic diarrhea Patient has better mentation and better appetite. total protein 5.4 albumin 2.8 Encourage oral intake CMP at AM #. Hypokalemia, due to chronic diarrhea, improving K now at 3.1 Continue lactobacillus Continue with potassium replacement per protocol BMP at a.m. General Surgery eval the patient, for colonoscopy tomorrow. Bowel prep today #. Hypophosphatemia, due to chronic diarrhea, resolved Phos normal at 2.9 on 02/14 but patient is still having episodes of diarrhea #. Macrocytosis likely due to alcohol abuse MCV at 106 on folate intake. B12 1314 Will monitor for now Continue high-dose thiamine and folic acid CBC at AM # Hypomagnesemia likely due to diarrhea and vomiting, resolved Mag now at 1.7 but patient is still having episodes of diarrhea #. Prerenal azotemia likely due to above, unknown baseline of creatinine Patient is currently asymptomatic and has no history of CKD Will monitor for now #. Elevated troponins, likely due to increased demand (type II), resolved Patient is not symptomatic and stable. troponin trend downward at 0.031 #. CHF, not in exacerbation (EF 45-50% echo in 09/2018) patient is asymptomatic, and actually fluid depleted, pro BNP of 1570 Chronic conditions: Osteoarthritis, hypertension, hyperlipidemia, CVA/TIA, vascular disorder, pacemaker placement, former smoker, A-fib Attestation: I have personally seen and examined the patient with Resident, reviewed the documentation and participated and agree with the assessment and plan as written. Objective - Vital Signs Vital signs: Vital Signs Temp 97.8 F 02/16/24 04:00 Pulse 59 L 02/16/24 04:00 Resp 16 02/16/24 04:00 BP 135/45 02/16/24 04:00 Pulse Ox 94 L 02/16/24 04:00 FiO2 Intake & Output 02/15/24 02/16/24 02/16/24 18:59 06:59 18:59 Intake Total 1016 Balance 1016 Weight 75.9 kg 77.6 kg Intake: Oral 1016 Other: Voiding Method Toilet Toilet Diaper Diaper # Voids 1 - Labs CBC & Chem 7: 02/17/24 08:47 02/17/24 08:47 Labs: Abnormal Lab Results - Last 24 Hours (Table) 02/15/24 02/15/24 02/15/24 Range/Units 07:15 07:15 07:15 RBC 3.10 L (4.30-5.90) m/uL Hgb 10.4 L (13.0-17.5) gm/dL Hct 32.6 L (39.0-53.0) % MCV 105.3 H (80.0-100.0) fL Lymphocytes # 0.9 L (1.0-4.8) k/uL Chloride 113 H (98-107) mmol/L Magnesium 1.4 L (1.6-2.3) mg/dL Total Protein 5.3 L (6.3-8.2) g/dL Albumin 2.6 L (3.5-5.0) g/dL Vitamin B12 1314.0 H (200.0-944.0) pg/mL
--- NOTE | 2024-02-16 21:12 | P.PN ---
Subjective Progress Note Date: 02/16/24 Principal diagnosis: Reason for follow-up is chronic diarrhea Patient is a 78-year-old male with a past medical history significant for atrial fibrillation CVA TIA hyperlipidemia hypertension osteoarthritis patient presenting to the hospital with diarrhea that has been chronic for him however over the last 5 weeks the patient seem to have more extensive, patient did have CT abdominal pelvis did not show any acute inflammation there was concern for possible mesenteric ischemia. On today's evaluation that is 02/16/2024, the patient continues to be afebrile, the patient is on room air and breathing comfortably, the Pt denies having any chest pain or cough, the patient denies having any abdominal pain no vomiting patient is currently getting bowel prep for colonoscopy tomorrow and did have some diarrhea. Patient white count is 5.6, creatinine 0.67 stool culture collected currently pending Objective - Vital Signs Vital signs: Vital Signs Temp 97.9 F 02/16/24 09:05 Pulse 64 02/16/24 12:00 Resp 18 02/16/24 12:00 BP 151/65 02/16/24 12:00 Pulse Ox 94 L 02/16/24 12:00 FiO2 Intake & Output 02/15/24 02/16/24 02/16/24 18:59 06:59 18:59 Intake Total 1016 0 Balance 1016 0 Weight 75.9 kg 77.6 kg Intake: Oral 1016 0 Other: Voiding Method Toilet Toilet Toilet Diaper Diaper Diaper # Voids 1 - Exam GENERAL DESCRIPTION: An elderly male lying in bed in no distress RESPIRATORY SYSTEM: Unlabored breathing , decreased breath sounds at bases HEART: S1 S2 regular rate and rhythm , ABDOMEN: Soft , no tenderness EXTREMITIES: No edema feet - Labs CBC & Chem 7: 02/16/24 07:32 02/16/24 07:32 Labs: Abnormal Lab Results - Last 24 Hours (Table) 02/16/24 02/16/24 Range/Units 07:32 07:32 RBC 3.18 L (4.30-5.90) m/uL Hgb 10.9 L (13.0-17.5) gm/dL Hct 33.7 L (39.0-53.0) % MCV 106.0 H (80.0-100.0) fL RDW 16.1 H (11.5-15.5) % Lymphocytes # 0.8 L (1.0-4.8) k/uL Chloride 113 H (98-107) mmol/L Carbon Dioxide 21 L (22-30) mmol/L BUN 8 L (9-20) mg/dL Total Protein 5.4 L (6.3-8.2) g/dL Albumin 2.8 L (3.5-5.0) g/dL Microbiology - Last 24 Hours (Table) 02/14/24 20:25 Stool Culture - Preliminary Stool Assessment and Plan (1) Diarrhea Current Visit: Yes Status: Acute Code(s): R19.7 - DIARRHEA, UNSPECIFIED SNOMED Code(s): 10497318 Plan: 1patient presented hospital with chronic diarrhea with recent flareup patient did not have any recent antibiotic exposure, stool for C. difficile EIA was negative CT abdominal pelvis did not show any acute inflammatory changes questionably related to ischemic bowel as there was concern for atherosclerotic disease of the mesenteric vasculature 2patient is currently getting bowel prep for colonoscopy tomorrow we will follow on the stool culture Dictation was produced using [employer] dictation software. please excuse any grammatical, word or spelling errors. Time with Patient: Less than 30
[2024-02-17 09:31] LABS: Basophils % (A) 0 %; Eosinophils # (A) 0.1 k/uL (0-0.7); Eosinophils % (A) 2 %; HCT 31.9 % (39.0-53.0); HGB 10.3 gm/dL (13.0-17.5); Hypochromasia Moderate; Lymphocytes # (A) 0.8 k/uL (1.0-4.8); Lymphocytes % (A) 13 %; MCH 33.9 pg (25.0-35.0); MCHC 32.2 g/dL (31.0-37.0); MCV 105.1 fL (80.0-100.0); Macrocytosis Moderate; Mean Platelet Volume 7.6; Monocytes # (A) 0.4 k/uL (0-1.0); Monocytes % (A) 6 %; Neutrophils # (A) 4.5 k/uL (1.3-7.7); Neutrophils % (A) 76 %; Platelet Count 249 k/uL (150-450); RBC 3.03 m/uL (4.30-5.90); RDW 15.6 % (11.5-15.5); WBC 5.9 k/uL (3.8-10.6)
[2024-02-17 09:41] LABS: ALT 32 U/L (4-49); AST 47 U/L (17-59); African American GFR (CKD) >90 (>60 ml/min/1.73 sqM); Albumin 2.7 g/dL (3.5-5.0); Alkaline Phosphatase 72 U/L (38-126); Anion Gap 3 mmol/L; Blood Urea Nitrogen 7 mg/dL (9-20); Calcium 8.8 mg/dL (8.4-10.2); Carbon Dioxide 26 mmol/L (22-30); Chloride 110 mmol/L (98-107); Glucose 92 mg/dL (74-99); Non-African American GFR(CKD) >90 (>60 ml/min/1.73 sqM); Potassium 3.4 mmol/L (3.5-5.1); Sodium 139 mmol/L (137-145); Total Bilirubin 0.9 mg/dL (0.2-1.3); Total Protein 5.4 g/dL (6.3-8.2)
[2024-02-17] MEDS ORDERED: PROPOFOL 10 MG/ML 20 ML VIAL IV ONE (10:49)
[2024-02-17] MEDS ORDERED: LIDOCAINE 2% (PF) 20 MG/ML 5 ML VIAL ONE (10:49)
[2024-02-17] MEDS: IV FLUID CONTINUATION 1,000 ML IV ONE (11:03)
--- NOTE | 2024-02-17 11:15 | P.OP ---
Date of Procedure: 02/17/24 Preoperative Diagnosis: Diarrhea Postoperative Diagnosis: Sigmoid diverticulosis Poor colon prep Procedure(s) Performed: Colonoscopy Anesthesia: MAC Surgeon: Mandeep Sarkar Pathology: other (Sigmoid colon) Condition: stable Disposition: PACU Description of Procedure: The patient was placed on the endoscopy table in the lateral position. He received IV sedation. Digital rectal exams performed. This revealed no abnormalities. There is a large amount liquid stool. The flexible colonoscope was then placed patient anus passed throughout the colon. The scope not be passed around the transverse colon secondary to poor colon prep. There was a large amount liquid stool. The mucosa could not be visualized. The scope was withdrawn. The descending colon had a few scattered diverticuli. There was more diverticuli seen the sigmoid colon due to the patient's complaints of diarrhea a biopsy of the sigmoid colon is performed. The rectum appeared normal. Fluid off the patient.
[2024-02-17] MEDS: POTASSIUM CHLORIDE ER 20 MEQ TAB.ER PO SCH (15:50)
--- NOTE | 2024-02-17 15:55 | P.PN ---
Subjective Progress Note Date: 02/17/24 Principal diagnosis: Reason for follow-up is chronic diarrhea Patient is a 78-year-old male with a past medical history significant for atrial fibrillation CVA TIA hyperlipidemia hypertension osteoarthritis patient presenting to the hospital with diarrhea that has been chronic for him however over the last 5 weeks the patient seem to have more extensive, patient did have CT abdominal pelvis did not show any acute inflammation there was concern for possible mesenteric ischemia. On today's evaluation that is 02/17/2024, Patient is afebrile patient is currently on room air and denies having any shortness of breath, the patient denies any chest pain or cough, the patient denies any nausea vomiting did not have any abdominal pain did have another loose stool today. Patient white count is 5.8, creatinine 0.68 stool culture currently pending Objective - Vital Signs Vital signs: Vital Signs Temp 97.4 F L 02/17/24 08:43 Pulse 58 L 02/17/24 14:42 Resp 14 02/17/24 14:42 BP 122/54 02/17/24 11:35 Pulse Ox 92 L 02/17/24 11:35 FiO2 Intake & Output 02/16/24 02/17/24 02/17/24 18:59 06:59 18:59 Intake Total 360 318 Balance 360 318 Intake: IV 200 Oral 360 118 Other: Voiding Method Toilet Toilet Toilet Diaper Diaper Diaper # Voids 4 1 - Exam GENERAL DESCRIPTION: An elderly male lying in bed in no distress RESPIRATORY SYSTEM: Unlabored breathing , decreased breath sounds at bases HEART: S1 S2 regular rate and rhythm , ABDOMEN: Soft , no tenderness EXTREMITIES: No edema feet - Labs CBC & Chem 7: 02/17/24 08:47 02/17/24 08:47 Labs: Abnormal Lab Results - Last 24 Hours (Table) 02/17/24 02/17/24 Range/Units 08:47 08:47 RBC 3.03 L (4.30-5.90) m/uL Hgb 10.3 L (13.0-17.5) gm/dL Hct 31.9 L (39.0-53.0) % MCV 105.1 H (80.0-100.0) fL RDW 15.6 H (11.5-15.5) % Lymphocytes # 0.8 L (1.0-4.8) k/uL Potassium 3.4 L (3.5-5.1) mmol/L Chloride 110 H (98-107) mmol/L BUN 7 L (9-20) mg/dL Total Protein 5.4 L (6.3-8.2) g/dL Albumin 2.7 L (3.5-5.0) g/dL Microbiology - Last 24 Hours (Table) 02/14/24 20:25 Stool Culture - Preliminary Stool Assessment and Plan (1) Diarrhea Current Visit: Yes Status: Acute Code(s): R19.7 - DIARRHEA, UNSPECIFIED SNOMED Code(s): 30196976 Plan: 1patient presented hospital with chronic diarrhea with recent flareup patient did not have any recent antibiotic exposure, stool for C. difficile EIA was negative CT abdominal pelvis did not show any acute inflammatory changes questionably related to ischemic bowel as there was concern for atherosclerotic disease of the mesenteric vasculature 2patient is status post colonoscopy operative report mention poor bowel prep biopsies has been obtained results will be followed [facility] Family the bedside questions were answered Dictation was produced using [employer] dictation software. please excuse any grammatical, word or spelling errors. Time with Patient: Less than 30
[2024-02-17] MEDS: PANTOPRAZOLE 40 MG TABLET PO SCH (18:28)
[2024-02-17] MEDS: ACETAMINOPHEN TAB 500 MG TAB PO PRN (18:28)
--- NOTE | 2024-02-17 21:34 | CT ---
EXAMINATION TYPE: CT abdomen pelvis without IV contrast. CT angiogram abdomen and pelvis with IV contrast. CT DLP: 1972 mGycm, Automated exposure control for dose reduction was used. DATE OF EXAM: 02/17/2024 9:11 PM COMPARISON: . . CLINICAL INDICATION: Male, 78 years old with history of Ischemic Bowel; PHH, ischemic bowel, right si ded abdominal pain. hx appy, pacemaker, bypas bilateral leg TECHNIQUE: Multiple thin slice sub-millimeter images were obtained after administration of contrast. 3-D reconstructed images and maximum intensity projection images were obtained. CT angio abdomen pel vis CT Contrast: Contrast used:100 mL of Isovue 370 with IV Contrast, Oral contrast used: without Oral Contrast None FINDINGS: CTA Abdomen and pelvis: No intramural hematoma on noncontrast imaging. * There is severe atherosclerosis of the arterial vasculature. The origin of the celiac axis is jaramillo nt. * The superior mesenteric artery and straight severe atherosclerotic plaque. There is poor visualiza tion of the lumen through this severe calcified plaque without definite reconstitution 3 cm from its origin. * Inferior mesenteric artery is patent. * The common femoral artery on the left appears occluded extending from its origin with reconstituti on at the superficial femoral artery. * The left internal iliac artery may also be occluded. * The right common iliac artery demonstrates at least 50% stenosis at its origin. * The external iliac artery on the right appears patent severe atherosclerotic plaque. * The visualized portions of the superficial femoral arteries bilaterally are patent. No bowel wall thickening to suggest ischemic bowel. LOWER CHEST: Small bilateral pleural effusions with associated atelectasis. Mitral valve annular calc ifications, aortic valve calcifications. Cardiac conduction leads terminating in right ventricle and right atrium. LIVER: Unremarkable GALLBLADDER AND BILE DUCTS: Unremarkable. PANCREAS: Unremarkable. SPLEEN: Unremarkable. ADRENAL GLANDS: Unremarkable. KIDNEYS AND URETERS: No evidence of hydronephrosis or renal calculus. The ureters are unremarkable. PELVIS BLADDER: Unremarkable REPRODUCTIVE: Unremarkable. ABDOMEN & PELVIS STOMACH AND BOWEL: No evidence of bowel obstruction. Scattered colonic diverticula. PERITONEUM: No evidence of pneumoperitoneum or free fluid. MUSCULOSKELETAL: Severe degeneration changes of the spine with vertebroplasty changes of L1. Vertebra l plasty cement at the L1-L2 disc space. Fixation hardware all 4 appears intact to pedicle screws at L5 which are short and caliber. The left pedicle screw neural foramen. LYMPH NODES: No gross evidence for lymphadenopathy. SOFT TISSUE/ABDOMINAL WALL: Fat-containing inguinal hernias bilaterally. IMPRESSION 1. No bowel wall thickening to suggest ischemic bowel. 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 2. Occlusion of the left common iliac artery with reconstitution of the superficial femoral artery. 3. At least 50% stenosis of the right common iliac artery secondary to severe atherosclerotic plaque . 4. No evidence of aneurysm. 5. Severe atherosclerosis of the arterial vascular. 6. Bilateral small pleural effusions. 7. Colonic diverticulosis. 8. Postsurgical changes of the spine appear intact.
[2024-02-17] MEDS: MAGNESIUM SULFATE-D5W PMX 1 GM in DEXTROSE/WATER 1 100ML.BAG IVPB SCH (23:15)
--- NOTE | 2024-02-17 23:40 | P.PN ---
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 He denies any fever cough recurrent abdominal pain jaundice headache or seizure. Has been in the hospital seen infectious disease, General surgery apparently scheduled for colonoscopy this morning and has been doing the prep. Still seen infectious disease C. difficile was negative abdominal CAT scan still showing slight inflammation might be consistent with ischemic bowel with concern of atherosclerotic change in the mesenteric vasculature. Restarted all apparently patient has chronic history of alcoholism with acute metabolic encephalopathy along with slight concern for detox to withdrawal. With the current status has been having more trouble with his nutrition status. Developed to have acute kidney injury with no history of chronic kidney disease also was having slight elevated troponin mostly type II with no MRI patient had congestive heart failure systolic dysfunction with ejection fraction last major at 45-50 percentile still on medical management. 02/17/2024: Is going for colonoscopy today still having slight diarrhea he had a prep for colonoscopy last 24 hours Overall he is doing better than before no further nausea or vomiting lab value is not showing any worsening anemia hemoglobin still at 10.3 with white blood cells 5.9 electrolyte panel with better balance so far kidney function has improved. Following his colonoscopy and biopsy will decide on further management whether he can benefit from any surgical intervention the fact that patient has been having diarrhea for the last 3 months according to him and his family with the current complaint has not been in the emergency room more than 1 time this year been in the office only once or twice with complaint not related in general to diarrhea or abdominal pain. REVIEW OF SYSTEMS: CONSTITUTIONAL: Well-developed no acute respiratory distress. EYES: No icterus sclerae, no conjunctivitis. EARS, NOSE, MOUTH, THROAT, and FACE: No sore throat, lymphadenopathy, carotid bruits or deformity. RESPIRATORY: No SOB cough or wheezes. CARDIOVASCULAR: No CP, Palpitation, PND, Orthopnea, or angina. GASTROINTESTINAL: No Abd pain, Nausea or vomiting, no Diarrhea or constipation, No GI Bleed, no distention or masses. GENITOURINARY: Negative for Hematuria or UTI, no kidney stones. INTEGUMENT/BREAST: Negative for any muscular injury with mild osteoarthritis.. HEMATOLOGIC/LYMPHATIC: Negative for bleed or purpura. MUSCULOSKELTAL: Negative for Myalgia or arthralgia. NEURLOGICAL: No LOC, Sz or syncope, blurred vision dizziness or abnormality.. BEHAVIORAL/PSYCH: Negative. ENDOCRINE: Negative. PHYSICAL EXAMINATION: General Appearance: Alert, cooperative, no distress, appears stated age. Neck HEENT: Supple, no lymphadenopathy, no thyroid enlargement, no carotid bruits. Lungs: Clear to auscultation without crackles or wheezes no rhonchi, no deformity. Chest Wall: Chest wall normal expansion with deep inspiration no tenderness and no deformity was found on exam, no costochondral pain or discomfort. Heart: Regular rate and rhythm, S1, S2 normal, no murmur, rub or gallop. Back: Symmetric, no curvature, ROM normal, no CVA tenderness. Abdomen: Soft, non-tender, bowel sounds active all four quadrants, slight discomfort in the mid abdominal region area and left lower quadrant. Extremities: Extremities normal, atraumatic, no cyanosis or edema. Pulses: 2+ and symmetric. Skin: Skin color, texture, tugor normal, no rashes or lesions. Neurologic: Alert oriented x3 cranial nerves II through XII intact, no motor deficit, no abnormal balance or gait. ASSESSMENT AND PLAN: _Syncope: Secondary to acute diarrhea along with nausea and vomiting symptoms a re better so far. _Abdominal pain with nausea vomiting and diarrhea: Still seen general surgery going for colonoscopy patient on his CAT scan still might be consistent with ischemic bowel. _Severe diarrhea according to his family has been on for the last 3 months not a clear etiology had further testing his original CAT scan failed to show any major abnormality. _Possible ischemic bowel affecting the mesenteric artery further testing after his colonoscopy he might go for CTA of the abdomen and pelvis. _Encephalopathy: Combination of dehydration, hypertension, possible infectious process and possible alcohol and withdrawal symptoms. _Electrolyte imbalance: Combination of hypomagnesemia along with hypophosphatemia secondary to diarrhea and intractable nausea and vomiting continue supportive care and replacement. _Macrocytosis: Hemoglobin still stable MCV was 106 with RDW slightly bit low continue folic acid and thiamine. _CHF, systolic dysfunction and chronic: _Elevated troponin: Mostly type II VT with no chest pain or angina. _Acute kidney injury: Continue hydration continue to watch kidney function carefully. _Mild hypoxia with atelectasis: Mostly improved _Peripheral vascular disease with chronic risk factor for vascular occlusive disease can be causing ischemic bowel. _Previous history of CVA/TIA with no residual. _Permanent pacemaker secondary to sick sinus syndrome and severe bradycardia: Still stable. _GI prophylaxis: Continue pantoprazole IV. Discharge planning will depend on the current testing and improvement over the next day or 2 we have to talk to him and the family for any further management and testing if needed. Objective - Vital Signs Vital signs: Vital Signs Temp 97.9 F 02/17/24 04:00 Pulse 60 02/17/24 04:00 Resp 14 02/17/24 04:00 BP 125/68 02/17/24 04:00 Pulse Ox 96 02/17/24 04:00 FiO2 Intake & Output 02/16/24 02/16/24 02/17/24 06:59 18:59 06:59 Intake Total 360 Balance 360 Weight 77.6 kg Intake: Oral 360 Other: Voiding Method Toilet Toilet Toilet Diaper Diaper Diaper # Voids 1 4 1 - Labs CBC & Chem 7: 02/17/24 08:47 02/17/24 08:47 Labs: Abnormal Lab Results - Last 24 Hours (Table) 02/16/24 02/16/24 Range/Units 07:32 07:32 RBC 3.18 L (4.30-5.90) m/uL Hgb 10.9 L (13.0-17.5) gm/dL Hct 33.7 L (39.0-53.0) % MCV 106.0 H (80.0-100.0) fL RDW 16.1 H (11.5-15.5) % Lymphocytes # 0.8 L (1.0-4.8) k/uL Chloride 113 H (98-107) mmol/L Carbon Dioxide 21 L (22-30) mmol/L BUN 8 L (9-20) mg/dL Total Protein 5.4 L (6.3-8.2) g/dL Albumin 2.8 L (3.5-5.0) g/dL Microbiology - Last 24 Hours (Table) 02/14/24 20:25 Stool Culture - Preliminary Stool
[2024-02-18] MEDS ORDERED: IPRATROPIUM-ALBUTEROL 3 ML NEB INHALATION PRN (03:48)
[2024-02-18 08:13] LABS: Basophils % (A) 0 %; Eosinophils # (A) 0.1 k/uL (0-0.7); Eosinophils % (A) 1 %; HCT 34.4 % (39.0-53.0); Hypochromasia Marked; Lymphocytes # (A) 1.1 k/uL (1.0-4.8); Lymphocytes % (A) 14 %; MCH 33.9 pg (25.0-35.0); MCV 106.1 fL (80.0-100.0); Macrocytosis Moderate; Mean Platelet Volume 7.7; Monocytes # (A) 0.5 k/uL (0-1.0); Monocytes % (A) 6 %; Neutrophils % (A) 77 %; Platelet Count 292 k/uL (150-450); RBC 3.24 m/uL (4.30-5.90); RDW 15.4 % (11.5-15.5); WBC 7.9 k/uL (3.8-10.6)
[2024-02-18] MEDS: FUROSEMIDE 10 MG/ML 2 ML VIAL IV SCH (08:27)
[2024-02-18] MEDS: ISOSORBIDE MONONITRATE ER 30 MG TAB.ER.24H PO SCH (08:27)
[2024-02-18 08:30] LABS: ALT 32 U/L (4-49); AST 45 U/L (17-59); African American GFR (CKD) >90 (>60 ml/min/1.73 sqM); Albumin 3.3 g/dL (3.5-5.0); Alkaline Phosphatase 79 U/L (38-126); Anion Gap 7 mmol/L; Blood Urea Nitrogen 7 mg/dL (9-20); Calcium 9.4 mg/dL (8.4-10.2); Carbon Dioxide 24 mmol/L (22-30); Chloride 108 mmol/L (98-107); Glucose 101 mg/dL (74-99); Magnesium 1.9 mg/dL (1.6-2.3); Non-African American GFR(CKD) 88 (>60 ml/min/1.73 sqM); Potassium 3.7 mmol/L (3.5-5.1); Sodium 139 mmol/L (137-145); Total Bilirubin 0.9 mg/dL (0.2-1.3); Total Protein 6.1 g/dL (6.3-8.2)
--- NOTE | 2024-02-18 09:12 | XR ---
EXAMINATION TYPE: XR chest 1V portable DATE OF EXAM: 02/18/2024 9:04 AM CLINICAL INDICATION: Male, 78 years old with history of SOB; PHH COMPARISON: Chest radiographs from 08/27/2022 TECHNIQUE: XR chest 1V portable Frontal view of the chest. FINDINGS: Lungs/Pleura: No evidence of focal consolidation or pneumothorax. Blunting of the costophrenic angles is present. Pulmonary vascularity: Pulmonary vascular congestion. Heart/mediastinum: Cardiomediastinal silhouette is enlarged. Two lead cardiac conduction device overl aaron the left hemithorax with lead tips projecting over the right ventricle and right atrium. Musculoskeletal: No acute osseous pathology. IMPRESSION: Cardiomegaly, pulmonary vascular congestion and bilateral pleural effusions. Correlate with BNP for c ongestive heart failure.
--- NOTE | 2024-02-18 10:47 | P.PN ---
Subjective Progress Note Date: 02/18/24 CHIEF COMPLAINT: Chronic diarrhea HISTORY OF PRESENT ILLNESS: Patient status post colonoscopy yesterday. Results showed sigmoid diverticulosis. Patient had a poor colon prep. Biopsies completed. Patient reports his diarrhea is less. He is tolerating diet. Denies any nausea or vomiting. Denies abdominal pain. WBC 7.9 Hgb 11.0. CTA reports No bowel wall thickening to suggest ischemic bowel. 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 occlusion of left common iliac artery. Medicine service consulted Dr. Gómez. PHYSICAL EXAM: VITAL SIGNS: Reviewed. GENERAL: no acute distress. ABDOMEN: Soft. Nondistended. Nontender. ASSESSMENT: 1. Diarrhea with history of chronic diarrhea 2. Status post colonoscopy with evidence of sigmoid diverticulosis and poor colon prep PLAN: -Continue regular diet -Okay to resume Eliquis Physician Policy Change Clerk note has been reviewed by physician. Signing provider agrees with the documented findings, assessment, and plan of care. Objective - Vital Signs Vital signs: Vital Signs Temp 97.4 F L 02/18/24 08:25 Pulse 65 02/18/24 08:25 Resp 16 02/18/24 08:25 BP 140/65 02/18/24 08:25 Pulse Ox 99 02/18/24 08:25 FiO2 Intake & Output 02/17/24 02/18/24 02/18/24 18:59 06:59 18:59 Intake Total 436 0 Balance 436 0 Weight 78 kg Intake: IV 200 Oral 236 0 Other: Voiding Method Toilet Toilet Toilet Diaper Diaper Diaper # Voids 1 1 1 # Bowel Movements 1 1 1 - Labs CBC & Chem 7: 02/18/24 06:53 02/18/24 06:53 Labs: Abnormal Lab Results - Last 24 Hours (Table) 02/17/24 02/18/24 02/18/24 Range/Units 18:43 06:53 06:53 RBC 3.24 L (4.30-5.90) m/uL Hgb 11.0 L (13.0-17.5) gm/dL Hct 34.4 L (39.0-53.0) % MCV 106.1 H (80.0-100.0) fL Chloride 108 H (98-107) mmol/L BUN 7 L (9-20) mg/dL Glucose 101 H (74-99) mg/dL Magnesium 1.5 L (1.6-2.3) mg/dL Troponin I (0.000-0.034) ng/mL Total Protein 6.1 L (6.3-8.2) g/dL Albumin 3.3 L (3.5-5.0) g/dL 02/18/24 Range/Units 06:53 RBC (4.30-5.90) m/uL Hgb (13.0-17.5) gm/dL Hct (39.0-53.0) % MCV (80.0-100.0) fL Chloride (98-107) mmol/L BUN (9-20) mg/dL Glucose (74-99) mg/dL Magnesium (1.6-2.3) mg/dL Troponin I 0.069 H* (0.000-0.034) ng/mL Total Protein (6.3-8.2) g/dL Albumin (3.5-5.0) g/dL Microbiology - Last 24 Hours (Table) 02/14/24 20:25 Stool Culture - Final Stool
[2024-02-18] MEDS: FUROSEMIDE 10 MG/ML 2 ML VIAL IV STA (11:10)
[2024-02-18] MEDS: APIXABAN 5 MG TAB PO SCH (11:11)
--- NOTE | 2024-02-18 11:27 | CA ---
Transthoracic Echo Report Name: Abiel oSmers Age: 78 Gender: M : 1945 Exam Date: 02/18/2024 09:41 Exam Location: [facility] Ht (in): 72 Wt (lb): 171 Ordering Physician: Terry Sloan MD Attending/Referring Phys: [employer] Commissioner Agnes Willard RDCS Procedure CPT: Indications: lvfunction Cardiac Hx: Technical Quality: Technically difficult study Contrast 1: Total Dose (mL): Contrast 2: Total Dose (mL): MEASUREMENTS (Male / Female) Normal Values 2D ECHO LV Diastolic Diameter PLAX 5.7 cm 4.2 - 5.9 / 3.9 - 5.3 cm LV Systolic Diameter PLAX 4.9 cm IVS Diastolic Thickness 1.2 cm 0.6 - 1.0 / 0.6 - 0.9 cm LVPW Diastolic Thickness 1.1 cm 0.6 - 1.0 / 0.6 - 0.9 cm LV Relative Wall Thickness 0.4 RV Internal Dim ED PLAX 3.5 cm LVOT Diameter 2.5 cm LA Systolic Diameter LX 4.4 cm 3.0 - 4.0 / 2.7 - 3.8 cm LV Diastolic Volume MOD BP 133.7 cm??? 67 - 155 / 56 - 104 cm??? LV Systolic Volume MOD BP 64.8 cm??? - 58 / 19 - 49 cm??? LV Ejection Fraction MOD BP 51.5 % >= 55 % LV Cardiac Index MOD BP 1942.3 cm???/min???m??? LV Diastolic Volume MOD 4C 125.2 cm??? LV Systolic Volume MOD 4C 67.2 cm??? LV Ejection Fraction MOD 4C 46.3 % LV Cardiac Index MOD 4C 1635.3 cm???/min???m??? LV Diastolic Length 4C 7.7 cm LV Systolic Length 4C 7.1 cm LV Diastolic Volume MOD 2C 137.7 cm??? LV Systolic Volume MOD 2C 68.6 cm??? LV Ejection Fraction MOD 2C 50.2 % LV Cardiac Index MOD 2C 1947.3 cm???/min???m??? LV Diastolic Length 2C 8.1 cm LV Systolic Length 2C 7.3 cm LA Volume 70.9 cm??? 18 - 58 / 22 - 52 cm??? LA Volume Index 35.7 cm???/m??? 16 - 28 cm???/m??? M-MODE Aortic Root Diameter MM 3.8 cm AV Cusp Separation MM 1.2 cm DOPPLER AV Peak Velocity 302.0 cm/s AV Peak Gradient 36.5 mmHg AV Mean Velocity 216.1 cm/s AV Mean Gradient 21.1 mmHg AV Velocity Time Integral 93.7 cm AI Peak Velocity 313.8 cm/s AI Peak Gradient 39.4 mmHg AI Pressure Half Time 745.8 ms MV Area PHT 3.1 cm??? Mitral E Point Velocity 95.1 cm/s Mitral A Point Velocity 111.9 cm/s Mitral E to A Ratio 0.9 MV Deceleration Time 244.8 ms TR Peak Velocity 319.5 cm/s TR Peak Gradient 40.8 mmHg Right Ventricular Systolic Press 45.1 mmHg FINDINGS Left Ventricle Left ventricular ejection fraction is estimated at 45 %. Left ventricular cavity size normal. Mildly increased septal wall thickness. Mildly increased left ventricular systolic volume. Mildly decreased left ventricular ejection fraction. There is hypokinesia involving the mid and distal inferior apical portion of the left ventricle. Right Ventricle Mild right ventricular dilatation. Moderate pulmonary hypertension. Right Atrium Normal right atrial size. No right atrial thrombus or mass seen. Left Atrium Mildly increased left atrial diameter. Moderately increased left atrial volume. Mildly increased left atrial area. Mitral Valve Mild thickening/calcification of the anterior mitral valve leaflet. Moderate thickening/calcification of the posterior mitral valve leaflet. Mild-to- moderate mitral regurgitation. Aortic Valve Trileaflet aortic valve. Aortic valve sclerosis. Moderate aortic stenosis with a peak gradient of 37 mmHg and a mean gradient of 21 mmHg. Mild aortic regurgitation. Tricuspid Valve Structurally normal tricuspid valve. Mild tricuspid regurgitation. Pulmonic Valve Structurally normal pulmonic valve. Mild pulmonic regurgitation. Pericardium No pericardial effusion. Aorta Mild aortic dilatation at the level of the sinuses of valsalva 38 mm CONCLUSIONS LV size is normal with ejection fraction of about 45% with inferior wall hypokinesia. Calcification of mitral valve leaflets with mitral annular calcification mild to moderate mitral regurgitation. Aortic valve calcification with stenosis peak gradient of 37 and a mean gradient of 21 mmHg. There is mild aortic regurgitation no pericardial effusion. Mild to moderate pulmonary hypertension Previewed by: Dr. Jose Cruz MD (Electronically Signed) Final Date: 18 February 2024 11:26
--- NOTE | 2024-02-18 11:33 | P.GSCN ---
History of Present Illness Consult date: 02/18/24 Reason for Consult: SMA occlusion Requesting physician: Terry Sloan History of present illness: This a pleasant 78-year-old male with a history of vascular disorder known to Dr. Moore with previous carotid endarterectomy in 2018, left distal femoral popliteal bypass in 2016, atherectomy of lower extremities and right common femoral artery endarterectomy in 2016. His past medical history also includes atrial fibrillation, CVA/TIA, hyperlipidemia, hypertension, and osteoarthritis who presented to the emergency department with complaints of syncope and acute on chronic diarrhea nausea and vomiting. Patient was admitted 9 days ago with complaints of nausea vomiting and diarrhea. Patient apparently has a history of chronic diarrhea however 5 days prior to admission was having increased diarrhea associated with nausea and vomiting. States that every time he ate he would have diarrhea. He denied any associated abdominal pain with the diarrhea or with eating. He denied any blood in his stool. He underwent a colonoscopy with Dr. Marv Painter with a poor prep with noted diverticulosis. He currently denies any abdominal pain, back pain, chest pain, shortness of breath, nausea or vomiting. States diarrhea is improving. He has been on Questran. He had a CT angiogram of the abdomen and pelvis which reported occlusion of the SMA origin with reconstitution. 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 Patient and his report he has not seen Dr. Moore in some time, they follow with Dr. Mcpherson his tariff counsel who also monitors his lower extremity blood flow. Review of Systems A 14 point review systems was completed all pertinent positives and negatives as stated in the HPI. Past Medical History Past Medical History: Atrial Fibrillation, CVA/TIA, Hyperlipidemia, Hypertension, Osteoarthritis (OA), Vascular Disorder Additional Past Medical History / Comment(s): HEPATITIS UNKNOWN TYPE YEARS AGO. stroke rt eye History of Any Multi-Drug Resistant Organisms: None Reported Past Surgical History: Appendectomy, Back Surgery, Pacemaker Additional Past Surgical History / Comment(s): LEFT LEG- BYPASS, RIGHT LEG BYPASS , left carotid stent, BOWEL SURGERY Past Anesthesia/Blood Transfusion Reactions: No Reported Reaction Type of Cardiac Device: Permanent Pacemaker Device Placement Date:: 09/2018 Past Psychological History: Depression Additional Psychological History / Comment(s): STATES DEPRESSED WITH HEALTH ISSUES Smoking Status: Former smoker Past Alcohol Use History: Daily Additional Past Alcohol Use History / Comment(s): Patient was smoker 2 packs per day since he was 11 years old and quit at age 38. He states he drinks 3-6 beers per day. He lives at home with his . Past Drug Use History: None Reported - Past Family History Mother Family Medical History: No Reported History Additional Family Medical History / Comment(s): Mother at age 88 from septic shock. Father Family Medical History: Coronary Artery Disease (CAD) Additional Family Medical History / Comment(s): Father at age 94, hx triple vessel diseaseCABG and aortic aneurysm. Brother(s) Family Medical History: No Reported History Additional Family Medical History / Comment(s): . Sister(s) Family Medical History: No Reported History Additional Family Medical History / Comment(s): . Son(s) Family Medical History: No Reported History Additional Family Medical History / Comment(s): . Daughter(s) Family Medical History: No Reported History Additional Family Medical History / Comment(s): . Medications and Allergies Home Medications Medication Instructions Recorded Confirmed Type Gabapentin [Neurontin] 300 mg PO BID 02/27/18 02/09/24 History allopurinoL [Zyloprim] 300 mg PO DAILY 02/27/18 02/09/24 History Ascorbic Acid [Vitamin C] 1,000 mg PO DAILY 10/02/18 02/09/24 History Multivitamins, Thera [Multivitamin 1 tab PO DAILY 10/02/18 02/09/24 History (formulary)] Apixaban [Eliquis] 5 mg PO BID 05/29/22 02/09/24 History Fenofibrate Nanocrystallized 145 mg PO DAILY 05/29/22 02/09/24 History [Fenofibrate] Furosemide [Lasix] 20 mg PO BID 08/30/22 02/09/24 History Cholecalciferol [Vitamin D3 (25 50 mcg PO DAILY 02/09/24 02/09/24 History Mcg = 1000 Iu)] Diphenox-Atrop 2.5-0.025 mg 2 tab PO QID PRN 02/09/24 02/09/24 History [Lomotil] Escitalopram [Lexapro] 20 mg PO DAILY 02/09/24 02/09/24 History Immune Support Complex 75mg 2 tab PO DAILY 02/09/24 02/09/24 History Metoprolol Tartrate [Lopressor] 100 mg PO BID 02/09/24 02/09/24 History Pravastatin Sodium [Pravachol] 40 mg PO DAILY 02/09/24 02/09/24 History Allergies Allergy/AdvReac Type Severity Reaction Status Date / Time lisinopril Allergy Swelling Verified 02/09/24 10:31 OF FACE Surgical - Exam Vital Signs Temp Pulse Resp BP Pulse Ox 97.8 F 60 16 115/48 97 02/08/24 22:56 02/08/24 22:56 02/08/24 22:56 02/08/24 22:56 02/08/24 22:56 General appearance: The patient is alert, oriented, appears in no acute distress. HET: Head is normocephalic and atraumatic. Pupils are equal and reactive. Neck: Supple. Heart: Regular. Lungs: Equal expansion, normal respiratory effort. Abdomen: Soft, nontender, nondistended. Extremities: Normal skin color and turgor. No lower extremity edema. Bilateral lower extremities warm to the touch with good capillary refill. Neurological: No focal deficits. Results - Labs 02/18/24 06:53 02/18/24 06:53 Abnormal Lab Results - Last 24 Hours (Table) 02/17/24 02/17/24 02/17/24 Range/Units 08:47 08:47 18:43 RBC 3.03 L (4.30-5.90) m/uL Hgb 10.3 L (13.0-17.5) gm/dL Hct 31.9 L (39.0-53.0) % MCV 105.1 H (80.0-100.0) fL RDW 15.6 H (11.5-15.5) % Lymphocytes # 0.8 L (1.0-4.8) k/uL Potassium 3.4 L (3.5-5.1) mmol/L Chloride 110 H (98-107) mmol/L BUN 7 L (9-20) mg/dL Glucose (74-99) mg/dL Magnesium 1.5 L (1.6-2.3) mg/dL Total Protein 5.4 L (6.3-8.2) g/dL Albumin 2.7 L (3.5-5.0) g/dL 02/18/24 02/18/24 Range/Units 06:53 06:53 RBC 3.24 L (4.30-5.90) m/uL Hgb 11.0 L (13.0-17.5) gm/dL Hct 34.4 L (39.0-53.0) % MCV 106.1 H (80.0-100.0) fL RDW (11.5-15.5) % Lymphocytes # (1.0-4.8) k/uL Potassium (3.5-5.1) mmol/L Chloride 108 H (98-107) mmol/L BUN 7 L (9-20) mg/dL Glucose 101 H (74-99) mg/dL Magnesium (1.6-2.3) mg/dL Total Protein 6.1 L (6.3-8.2) g/dL Albumin 3.3 L (3.5-5.0) g/dL Microbiology - Last 24 Hours (Table) 02/14/24 20:25 Stool Culture - Final Stool Diabetes panel 02/17/24 02/18/24 Range/Units 08:47 06:53 Sodium 139 139 (137-145) mmol/L Potassium 3.4 L 3.7 (3.5-5.1) mmol/L Chloride 110 H 108 H (98-107) mmol/L Carbon Dioxide 26 24 (22-30) mmol/L BUN 7 L 7 L (9-20) mg/dL Creatinine 0.68 0.72 (0.66-1.25) mg/dL Glucose 92 101 H (74-99) mg/dL Calcium 8.8 9.4 (8.4-10.2) mg/dL AST 47 45 (17-59) U/L ALT 32 32 (4-49) U/L Alkaline Phosphatase 72 79 (38-126) U/L Total Protein 5.4 L 6.1 L (6.3-8.2) g/dL Albumin 2.7 L 3.3 L (3.5-5.0) g/dL Calcium panel 02/17/24 02/18/24 Range/Units 08:47 06:53 Calcium 8.8 9.4 (8.4-10.2) mg/dL Albumin 2.7 L 3.3 L (3.5-5.0) g/dL Pituitary panel 02/17/24 02/18/24 Range/Units 08:47 06:53 Sodium 139 139 (137-145) mmol/L Potassium 3.4 L 3.7 (3.5-5.1) mmol/L Chloride 110 H 108 H (98-107) mmol/L Carbon Dioxide 26 24 (22-30) mmol/L BUN 7 L 7 L (9-20) mg/dL Creatinine 0.68 0.72 (0.66-1.25) mg/dL Glucose 92 101 H (74-99) mg/dL Calcium 8.8 9.4 (8.4-10.2) mg/dL Adrenal panel 02/17/24 02/18/24 Range/Units 08:47 06:53 Sodium 139 139 (137-145) mmol/L Potassium 3.4 L 3.7 (3.5-5.1) mmol/L Chloride 110 H 108 H (98-107) mmol/L Carbon Dioxide 26 24 (22-30) mmol/L BUN 7 L 7 L (9-20) mg/dL Creatinine 0.68 0.72 (0.66-1.25) mg/dL Glucose 92 101 H (74-99) mg/dL Calcium 8.8 9.4 (8.4-10.2) mg/dL Total Bilirubin 0.9 0.9 (0.2-1.3) mg/dL AST 47 45 (17-59) U/L ALT 32 32 (4-49) U/L Alkaline Phosphatase 72 79 (38-126) U/L Total Protein 5.4 L 6.1 L (6.3-8.2) g/dL Albumin 2.7 L 3.3 L (3.5-5.0) g/dL - Imaging Comments: CT angiogram abdomen and pelvis reports no bowel wall thickening to suggest ischemic bowel. Likely occlusion of the superior mesenteric artery origin due to calcified plaque with reconstitution 3 cm from its origin. Correlate with lactic acid. Occlusion of the left common iliac artery with reconstitution of the SFA. At least 50% stenosis of the right common iliac artery secondary to severe arthrosclerotic plaque. No evidence of aneurysm. Severe arthrosclerosis of the arterial vascular. Bilateral small pleural effusions. Colonic diverticulosis. Postsurgical changes of the spine appear intact. Assessment and Plan Assessment: 1. 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 History of peripheral arterial disease with revascularization 3. Elevated troponin 5. Acute nausea, vomiting and diarrhea, improving 6. Chronic diarrhea 7. History of CVA/TIA 8. Former smoker 9. History of atrial fibrillation Plan: Patient's history reviewed including previous vascular surgical intervention and imaging. Patient has history of chronic SMA occlusion since 2016. There is no indication for any vascular surgical intervention. Continue with medical management. Thank you for this consultation, patient is cleared from vascular surgery for discharge. Discussed with patient and to follow-up may follow with Dr. Moore due to vascular history or continue follow-up with Dr. Mcpherson. Thank you for this consultation, we will sign off at this time. The impression and plan of care has been dictated as directed. I performed a history and examination of this patient, discussed the same with the dictator. I agree with the dictator's note ,documented as a scribe. Any additional findings or plans will be noted.
--- NOTE | 2024-02-18 12:12 | P.CRDCN ---
History of Present Illness History of present illness: HISTORY OF PRESENT ILLNESS: This is a 78-year-old male with a past medical history significant for peripheral arterial disease, atrial fibrillation, permanent pacemaker, hyperlipidemia, and congestive heart failure. Patient follows in the office with Dr. Mcpherson. We have been asked to see the patient in consultation for shortness of breath. Patient examined at the bedside. Patient is admitted to the hospital secondary to diarrhea. Patient states he has been having diarrhea for the past several months. He underwent colonoscopy yesterday however patient had poor bowel prep. Patient has been receiving IV fluids since coming to the hospital. He usually takes oral Lasix at home which he has not been receiving. The patient states he started feeling short of breath yesterday which has gotten worse today. He denies any shortness of breath prior to coming to the hospital. He currently denies any chest pain or pressure. DIAGNOSTICS: - EKG reveals ventricular paced rhythm - Chest xray cardiomegaly, pulmonary vascular congestion and bilateral pleural effusions - Laboratory data: WBC 7.9. Hemoglobin 11.0. Platelet count 292. Sodium 139. Potassium 3.7. BUN 7. Creatinine 0.72. Troponin 0.069. proBNP 22,000 - Current home cardiac medications include Eliquis 5 mg twice a day, Lasix 20 mg twice a day, fenofibrate 145 mg daily, metoprolol tartrate 100 mg twice a day, a nd Pravachol 40 mg daily -Echocardiogram completed revealing ejection fraction 45% with inferior wall hypokinesis, moderate pulmonary hypertension, mild to moderate mitral regurgitation, moderate aortic stenosis, mild tricuspid regurgitation REVIEW OF SYSTEMS: At the time of my exam: CONSTITUTIONAL: Denies fever or chills. HEENT: Denies blurred vision, vision changes, or eye pain. Denies hemoptysis CARDIOVASCULAR: Denies chest pain. Denies orthopnea. Denies PND. Denies palpitations RESPIRATORY: Denies shortness of breath. GASTROINTESTINAL: Denies abdominal pain. Denies nausea or vomiting. HEMATOLOGIC: Denies bleeding disorders. GENITOURINARY: Denies any blood in urine. SKIN: Denies pruitis. Denies rash. PHYSICAL EXAM: VITAL SIGNS: Reviewed. GENERAL: Well-developed in no acute distress. HEENT: Head is normocephalic. Pupils are equal, round. Sclerae anicteric. Mucous membranes of the mouth are moist. Neck supple. No JVD or thyromegaly LUNGS: Respirations even and unlabored. Lungs essentially clear to auscultation bilaterally. HEART: Regular rate and rhythm. S1 and S2 heard. ABDOMEN: Soft. Nondistended. Nontender. EXTREMITIES: Normal range of motion. No clubbing or cyanosis. Peripheral pulses intact. Trace bilateral lower extremity edema NEUROLOGIC: Awake and alert. Oriented x 3. ASSESSMENT: Chronic diarrhea, status post colonoscopy with poor bowel prep Volume overload secondary to IVF Acute on chronic heart failure with mildly reduced EF secondary to IV fluid ad ministration Elevated troponin, secondary to type II WA secondary to oxygen supply/demand mismatch Paroxysmal atrial fibrillation History of dual-chamber permanent pacemaker implantation, [facility], 2019 Peripheral arterial disease Hyperlipidemia PLAN: Patient denies having any CP during or prior to examination Discontinue IV fluids Begin IV Lasix 40 mg daily Daily weights, accurate intake and output, and monitoring of kidney function Resume Eliquis Further recommendations pending patient course Nurse practitioner note has been reviewed by physician. Signing provider agrees with the documented findings, assessment, and plan of care documented by [employer] as a scribe. Past Medical History Past Medical History: Atrial Fibrillation, CVA/TIA, Hyperlipidemia, Hypertension, Osteoarthritis (OA), Vascular Disorder Additional Past Medical History / Comment(s): HEPATITIS UNKNOWN TYPE YEARS AGO. stroke rt eye History of Any Multi-Drug Resistant Organisms: None Reported Past Surgical History: Appendectomy, Back Surgery, Pacemaker Additional Past Surgical History / Comment(s): LEFT LEG- BYPASS, RIGHT LEG BYPASS , left carotid stent, BOWEL SURGERY Past Anesthesia/Blood Transfusion Reactions: No Reported Reaction Type of Cardiac Device: Permanent Pacemaker Device Placement Date:: 09/2018 Past Psychological History: Depression Additional Psychological History / Comment(s): STATES DEPRESSED WITH HEALTH ISSUES Smoking Status: Former smoker Past Alcohol Use History: Daily Additional Past Alcohol Use History / Comment(s): Patient was smoker 2 packs per day since he was 11 years old and quit at age 38. He states he drinks 3-6 beers per day. He lives at home with his . Past Drug Use History: None Reported - Past Family History Mother Family Medical History: No Reported History Additional Family Medical History / Comment(s): Mother at age 88 from septic shock. Father Family Medical History: Coronary Artery Disease (CAD) Additional Family Medical History / Comment(s): Father at age 94, hx triple vessel diseaseCABG and aortic aneurysm. Brother(s) Family Medical History: No Reported History Additional Family Medical History / Comment(s): . Sister(s) Family Medical History: No Reported History Additional Family Medical History / Comment(s): . Son(s) Family Medical History: No Reported History Additional Family Medical History / Comment(s): . Daughter(s) Family Medical History: No Reported History Additional Family Medical History / Comment(s): . Medications and Allergies Home Medications Medication Instructions Recorded Confirmed Type Gabapentin [Neurontin] 300 mg PO BID 02/27/18 02/09/24 History allopurinoL [Zyloprim] 300 mg PO DAILY 02/27/18 02/09/24 History Ascorbic Acid [Vitamin C] 1,000 mg PO DAILY 10/02/18 02/09/24 History Multivitamins, Thera [Multivitamin 1 tab PO DAILY 10/02/18 02/09/24 History (formulary)] Apixaban [Eliquis] 5 mg PO BID 05/29/22 02/09/24 History Fenofibrate Nanocrystallized 145 mg PO DAILY 05/29/22 02/09/24 History [Fenofibrate] Furosemide [Lasix] 20 mg PO BID 08/30/22 02/09/24 History Cholecalciferol [Vitamin D3 (25 50 mcg PO DAILY 02/09/24 02/09/24 History Mcg = 1000 Iu)] Diphenox-Atrop 2.5-0.025 mg 2 tab PO QID PRN 02/09/24 02/09/24 History [Lomotil] Escitalopram [Lexapro] 20 mg PO DAILY 02/09/24 02/09/24 History Immune Support Complex 75mg 2 tab PO DAILY 02/09/24 02/09/24 History Metoprolol Tartrate [Lopressor] 100 mg PO BID 02/09/24 02/09/24 History Pravastatin Sodium [Pravachol] 40 mg PO DAILY 02/09/24 02/09/24 History Allergies Allergy/AdvReac Type Severity Reaction Status Date / Time lisinopril Allergy Swelling Verified 02/09/24 10:31 OF FACE Physical Exam Vitals: Vital Signs Temp Pulse Pulse Resp BP Pulse Ox 02/18/24 11:10 97.4 F L 65 18 132/48 100 02/18/24 08:25 97.4 F L 65 65 16 140/65 99 02/18/24 03:44 97.8 F 58 L 16 137/66 96 02/18/24 00:00 97.5 F L 66 18 153/67 98 02/17/24 20:00 97.4 F L 66 16 155/72 96 02/17/24 18:00 66 18 151/66 97 02/17/24 14:42 58 L 14 Intake and Output 02/17/24 02/18/24 02/18/24 22:59 06:59 14:59 Intake Total 118 0 Balance 118 0 Intake: Oral 118 0 Other: Voiding Method Toilet Toilet Toilet Diaper Diaper Diaper # Voids 1 1 1 # Bowel Movements 1 1 1 Weight 78 kg Results 02/18/24 06:53 02/18/24 06:53 Cardiac Enzymes 02/18/24 02/18/24 Range/Units 06:53 06:53 AST 45 (17-59) U/L Troponin I 0.069 H* (0.000-0.034) ng/mL CBC 02/18/24 Range/Units 06:53 WBC 7.9 (3.8-10.6) k/uL RBC 3.24 L (4.30-5.90) m/uL Hgb 11.0 L (13.0-17.5) gm/dL Hct 34.4 L (39.0-53.0) % Plt Count 292 (150-450) k/uL Comprehensive Metabolic Panel 02/18/24 Range/Units 06:53 Sodium 139 (137-145) mmol/L Potassium 3.7 (3.5-5.1) mmol/L Chloride 108 H (98-107) mmol/L Carbon Dioxide 24 (22-30) mmol/L BUN 7 L (9-20) mg/dL Creatinine 0.72 (0.66-1.25) mg/dL Glucose 101 H (74-99) mg/dL Calcium 9.4 (8.4-10.2) mg/dL AST 45 (17-59) U/L ALT 32 (4-49) U/L Alkaline Phosphatase 79 (38-126) U/L Total Protein 6.1 L (6.3-8.2) g/dL Albumin 3.3 L (3.5-5.0) g/dL Current Medications Generic Name Dose Route Start Last Admin Trade Name Freq PRN Reason Stop Dose Admin Acetaminophen 500 mg 02/17/24 18:11 02/17/24 18:28 Acetaminophen Tab 500 Mg Tab PO 500 mg Q6HR PRN Administration Fever and/ or Pain Albuterol/Ipratropium 3 ml 02/18/24 03:48 Ipratropium-Albuterol 3 Ml Neb INHALATION RT-Q6H PRN Wheezing Allopurinol 300 mg 02/10/24 09:00 02/18/24 08:27 Allopurinol 300 Mg Tab PO 300 mg DAILY VALERIE Administration Apixaban 5 mg 02/18/24 09:15 02/18/24 11:11 Apixaban 5 Mg Tab PO 5 mg BID VALERIE Administration Protocol Ascorbic Acid 1,000 mg 02/10/24 09:00 02/18/24 08:27 Ascorbic Acid 500 Mg Tab PO 1,000 mg DAILY VALERIE Administration Aspirin 325 mg 02/09/24 10:08 Aspirin 325 Mg Tab PO TID PRN Pain Cholecalciferol 50 mcg 02/10/24 09:00 02/18/24 08:24 Cholecalciferol 25 Mcg (1000 Iu) Tablet PO 50 mcg DAILY VALERIE Administration Cholestyramine Resin 4 gm 02/15/24 15:00 02/18/24 08:28 Cholestyramine (With Sugar) 4 Gm Packet PO 4 gm TID BETWEEN MEALS VALERIE Administration Escitalopram Oxalate 20 mg 02/10/24 09:00 02/18/24 08:27 Escitalopram 20 Mg Tab PO 20 mg DAILY VALERIE Administration Famotidine 20 mg 02/10/24 09:00 02/18/24 08:27 Famotidine 20 Mg Tab PO 20 mg DAILY VALERIE Administration Fenofibrate 160 mg 02/10/24 09:00 02/18/24 08:27 Fenofibrate 160 Mg Tab PO 160 mg DAILY VALERIE Administration Folic Acid 1 mg 02/09/24 09:00 02/18/24 08:27 Folic Acid 1 Mg Tab PO 1 mg DAILY VALERIE Administration Furosemide 40 mg 02/19/24 09:00 Furosemide 10 Mg/Ml 4 Ml Vial IV DAILY VALERIE Gabapentin 100 mg 02/09/24 21:00 02/18/24 08:27 Gabapentin 100 Mg Cap PO 100 mg BID VALERIE Administration Isosorbide Mononitrate 30 mg 02/18/24 09:00 02/18/24 08:27 Isosorbide Mononitrate Er 30 Mg Tab.Er.24h PO 30 mg DAILY VALERIE Administration Lactobacillus Acidophilus 1 each 02/10/24 12:00 02/18/24 08:27 Lactobacillus Acidophilus/Pect 1 Each Capsule PO 1 each TID VALERIE Administration Lorazepam 0.5 mg 02/09/24 02:53 Lorazepam 0.5 Mg Tab PO Q4HR PRN Ci[place] 4 To 5 Lorazepam 1 mg 02/09/24 02:53 Lorazepam 1 Mg Tab PO Q4HR PRN [place] 6 To 7 Lorazepam 2 mg 02/09/24 02:53 Lorazepam 1 Mg Tab PO Q3HR PRN [place] 8 To 9 Lorazepam 2 mg 02/09/24 02:53 Lorazepam 1 Mg Tab PO Q2HR PRN [place] 10 or greater Lorazepam 1 mg 02/09/24 02:53 02/11/24 20:23 Lorazepam 2 Mg/Ml Inj IV 1 mg Q2HR PRN Administration CIWA 8 or 9 Lorazepam 1 mg 02/09/24 02:53 02/11/24 09:56 Lorazepam 2 Mg/Ml Inj IV 1 mg Q1HR PRN Administration CIWA 10 to 15 Lorazepam 1 mg 02/09/24 02:53 Lorazepam 1 Mg Tab PO Q1HR PRN Alcohol Withdrawal Metoprolol Tartrate 100 mg 02/10/24 09:00 02/18/24 08:27 Metoprolol Tartrate 50 Mg Tab PO 100 mg BID VALERIE Administration Miscellaneous Information 1 each 02/10/24 11:51 Phosphorus Replacement Protoco 1 Each Misc MISCELLANE DAILY PRN Per Protocol Protocol Miscellaneous Information 1 each 02/11/24 10:38 Potassium Replacement Protocol 1 Each Misc MISCELLANE DAILY PRN Per Protocol Protocol Miscellaneous Information 1 each 02/12/24 14:33 Magnesium Replacement Protocol 1 Each Misc MISCELLANE DAILY PRN Per Protocol Protocol Multivitamins 1 each 02/10/24 09:00 02/18/24 08:27 Multivitamins, Thera 1 Each Tab PO 1 each DAILY VALERIE Administration Naloxone HCl 0.2 mg 02/09/24 02:53 Naloxone 0.4 Mg/Ml 1 Ml Vial IV Q2M PRN Opioid Reversal Ondansetron HCl 4 mg 02/09/24 02:53 Ondansetron 4 Mg/2 Ml Vial IVP Q8HR PRN Nausea And Vomiting Pantoprazole Sodium 40 mg 02/17/24 18:15 02/18/24 06:17 Pantoprazole 40 Mg Tablet PO 40 mg [id number] VALERIE Administration Pravastatin Sodium 40 mg 02/10/24 09:00 02/18/24 08:27 Pravastatin Sodium 40 Mg Tab PO 40 mg DAILY VALERIE Administration Quetiapine Fumarate 12.5 mg 02/11/24 01:49 02/11/24 02:00 Quetiapine 25 Mg Tab PO 12.5 mg HS PRN Administration Insomnia Thiamine HCl 100 mg 02/10/24 09:00 02/18/24 08:27 Thiamine 100 Mg Tab PO 100 mg DAILY VALERIE Administration Intake and Output 02/17/24 02/18/24 02/18/24 22:59 06:59 14:59 Intake Total 118 0 Balance 118 0 Intake: Oral 118 0 Other: Voiding Method Toilet Toilet Toilet Diaper Diaper Diaper # Voids 1 1 1 # Bowel Movements 1 1 1 Weight 78 kg 02/18/24 06:53 02/18/24 06:53
--- NOTE | 2024-02-19 06:37 | P.PN ---
Subjective Progress Note Date: 02/18/24 HISTORY OF PRESENT ILLNESS: 78-year-old office patient with active medical history of A-fib with RVR, CVA/TIA, valvular heart disease, mild vascular obstructive disease with left and right leg bypass surgery, former smoker with mild COPD who apparently admitted to the hospital on February 09, 2024 with syncopal episode occurred at nighttime apparently has been having diarrhea for the last 3 weeks with no description of any bloody diarrhea or tarry stool reported that he started to vomit 2 weeks ago and digested food. He denies any fever cough recurrent abdominal pain jaundice headache or seizure. Has been in the hospital seen infectious disease, General surgery apparently scheduled for colonoscopy this morning and has been doing the prep. Still seen infectious disease C. difficile was negative abdominal CAT scan still showing slight inflammation might be consistent with ischemic bowel with concern of atherosclerotic change in the mesenteric vasculature. Restarted all apparently patient has chronic history of alcoholism with acute metabolic encephalopathy along with slight concern for detox to withdrawal. With the current status has been having more trouble with his nutrition status. Developed to have acute kidney injury with no history of chronic kidney disease also was having slight elevated troponin mostly type II with no MRI patient had congestive heart failure systolic dysfunction with ejection fraction last major at 45-50 percentile still on medical management. 02/17/2024: Is going for colonoscopy today still having slight diarrhea he had a prep for colonoscopy last 24 hours Overall he is doing better than before no further nausea or vomiting lab value is not showing any worsening anemia hemoglobin still at 10.3 with white blood cells 5.9 electrolyte panel with better balance so far kidney function has improved. Following his colonoscopy and biopsy will decide on further management whether he can benefit from any surgical intervention the fact that patient has been having diarrhea for the last 3 months according to him and his family with the current complaint has not been in the emergency room more than 1 time this year been in the office only once or twice with complaint not related in general to diarrhea or abdominal pain. 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 With his current finding patient most likely been dealing with severe quality of ischemic symptoms causing his diarrhea biopsy were done from his colonoscopy expect to be completed probably before the end of the week. Had discussion with the family and update with the current finding of for colonoscopy along with testing before the CTA was done. Patient updated on the CTA and might consult vascular for an opinion on possibility of superior mesenteric arteries blockage and stenosis. REVIEW OF SYSTEMS: CONSTITUTIONAL: Well-developed no acute respiratory distress. EYES: No icterus sclerae, no conjunctivitis. EARS, NOSE, MOUTH, THROAT, and FACE: No sore throat, lymphadenopathy, carotid bruits or deformity. RESPIRATORY: No SOB cough or wheezes. CARDIOVASCULAR: No CP, Palpitation, PND, Orthopnea, or angina. GASTROINTESTINAL: No Abd pain, Nausea or vomiting, no Diarrhea or constipation, No GI Bleed, no distention or masses. GENITOURINARY: Negative for Hematuria or UTI, no kidney stones. INTEGUMENT/BREAST: Negative for any muscular injury with mild osteoarthritis.. HEMATOLOGIC/LYMPHATIC: Negative for bleed or purpura. MUSCULOSKELTAL: Negative for Myalgia or arthralgia. NEURLOGICAL: No LOC, Sz or syncope, blurred vision dizziness or abnormality.. BEHAVIORAL/PSYCH: Negative. ENDOCRINE: Negative. PHYSICAL EXAMINATION: General Appearance: Alert, cooperative, no distress, appears stated age. Neck HEENT: Supple, no lymphadenopathy, no thyroid enlargement, no carotid bruits. Lungs: Clear to auscultation without crackles or wheezes no rhonchi, no deformity. Chest Wall: Chest wall normal expansion with deep inspiration no tenderness and no deformity was found on exam, no costochondral pain or discomfort. Heart: Regular rate and rhythm, S1, S2 normal, no murmur, rub or gallop. Back: Symmetric, no curvature, ROM normal, no CVA tenderness. Abdomen: Soft, non-tender, bowel sounds active all four quadrants, slight discomfort in the mid abdominal region area and left lower quadrant. Extremities: Extremities normal, atraumatic, no cyanosis or edema. Pulses: 2+ and symmetric. Skin: Skin color, texture, tugor normal, no rashes or lesions. Neurologic: Alert oriented x3 cranial nerves II through XII intact, no motor deficit, no abnormal balance or gait. ASSESSMENT AND PLAN: _Syncope: Secondary to acute diarrhea along with nausea and vomiting symptoms are better so far. _Abdominal pain with nausea vomiting and diarrhea: Still seen general surgery going for colonoscopy patient on his CAT scan still might be consistent with ischemic bowel. _Severe diarrhea according to his family has been on for the last 3 months not a clear etiology had further testing his original CAT scan failed to show any major abnormality. 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 _Encephalopathy: Combination of dehydration, hypertension, possible infectious process and possible alcohol and withdrawal symptoms. _Electrolyte imbalance: Combination of hypomagnesemia along with hypophosphatemia secondary to diarrhea and intractable nausea and vomiting continue supportive care and replacement. _Macrocytosis: Hemoglobin still stable MCV was 106 with RDW slightly bit low continue folic acid and thiamine. _CHF, systolic dysfunction and chronic: _Elevated troponin: Mostly type II CT with no chest pain or angina. _Acute kidney injury: Continue hydration continue to watch kidney function carefully. _Mild hypoxia with atelectasis: Mostly improved _Peripheral vascular disease with chronic risk factor for vascular occlusive disease can be causing ischemic bowel. _Previous history of CVA/TIA with no residual. _Permanent pacemaker secondary to sick sinus syndrome and severe bradycardia: Still stable. _GI prophylaxis: Continue pantoprazole IV. Discharge planning will depend on the current testing and improvement over the next day or 2 we have to talk to him and the family for any further management and testing if needed. Will consult vascular for an opinion in the meanwhile titrate patient's diet see if He is able to tolerate his diet well with no more diarrhea. Objective - Vital Signs Vital signs: Vital Signs Temp 97.8 F 02/18/24 03:44 Pulse 58 L 02/18/24 03:44 Resp 16 02/18/24 03:44 BP 137/66 02/18/24 03:44 Pulse Ox 96 02/18/24 03:44 FiO2 Intake & Output 02/17/24 02/17/24 02/18/24 06:59 18:59 06:59 Intake Total 436 Balance 436 Weight 78 kg Intake: IV 200 Oral 236 Other: Voiding Method Toilet Toilet Toilet Diaper Diaper Diaper # Voids 1 1 1 # Bowel Movements 1 1 - Labs CBC & Chem 7: 02/18/24 06:53 02/18/24 06:53 Labs: Abnormal Lab Results - Last 24 Hours (Table) 02/17/24 02/17/24 02/17/24 Range/Units 08:47 08:47 18:43 RBC 3.03 L (4.30-5.90) m/uL Hgb 10.3 L (13.0-17.5) gm/dL Hct 31.9 L (39.0-53.0) % MCV 105.1 H (80.0-100.0) fL RDW 15.6 H (11.5-15.5) % Lymphocytes # 0.8 L (1.0-4.8) k/uL Potassium 3.4 L (3.5-5.1) mmol/L Chloride 110 H (98-107) mmol/L BUN 7 L (9-20) mg/dL Magnesium 1.5 L (1.6-2.3) mg/dL Total Protein 5.4 L (6.3-8.2) g/dL Albumin 2.7 L (3.5-5.0) g/dL Microbiology - Last 24 Hours (Table) 02/14/24 20:25 Stool Culture - Preliminary Stool
[2024-02-19 07:56] LABS: African American GFR (CKD) >90 (>60 ml/min/1.73 sqM); Anion Gap 5 mmol/L; Blood Urea Nitrogen 8 mg/dL (9-20); Carbon Dioxide 27 mmol/L (22-30); Chloride 106 mmol/L (98-107); Glucose 94 mg/dL (74-99); Non-African American GFR(CKD) 85 (>60 ml/min/1.73 sqM); Potassium 3.6 mmol/L (3.5-5.1); Sodium 138 mmol/L (137-145)
[2024-02-19 08:33] VITALS: BP 123/59; PULSE 64; RESP 18; TEMP 97.5
[2024-02-19] MEDS: FUROSEMIDE 10 MG/ML 4 ML VIAL IV SCH (08:39)
--- NOTE | 2024-02-19 11:54 | P.PN ---
Subjective HISTORY OF PRESENT ILLNESS: This is a 78-year-old male with a past medical history significant for peripheral arterial disease, atrial fibrillation, permanent pacemaker, hyperlipidemia, and congestive heart failure. Patient follows in the office with Dr. Mcpherson. We have been asked to see the patient in consultation for shortness of breath. Patient examined at the bedside. Patient is admitted to the hospital secondary to diarrhea. Patient states he has been having diarrhea for the past several months. He underwent colonoscopy yesterday however patient had poor bowel prep. Patient has been receiving IV fluids since coming to the hospital. He usually takes oral Lasix at home which he has not been receiving. The patient states he started feeling short of breath yesterday which has gotten worse today. He denies any shortness of breath prior to coming to the hospital. He currently denies any chest pain or pressure. DIAGNOSTICS: - EKG reveals ventricular paced rhythm - Chest xray cardiomegaly, pulmonary vascular congestion and bilateral pleural effusions - Laboratory data: WBC 7.9. Hemoglobin 11.0. Platelet count 292. Sodium 139. Potassium 3.7. BUN 7. Creatinine 0.72. Troponin 0.069. proBNP 22,000 - Current home cardiac medications include Eliquis 5 mg twice a day, Lasix 20 mg twice a day, fenofibrate 145 mg daily, metoprolol tartrate 100 mg twice a day, and Pravachol 40 mg daily -Echocardiogram completed revealing ejection fraction 45% with inferior wall hypokinesis, moderate pulmonary hypertension, mild to moderate mitral regurgitation, moderate aortic stenosis, mild tricuspid regurgitation 02/19/2024 Patient examined this morning at the bedside. Patient currently denies chest pain or pressure. He continues to report shortness of breath with exertion although improved from yesterday. PHYSICAL EXAM: VITAL SIGNS: Reviewed. GENERAL: Well-developed in no acute distress. HEENT: Head is normocephalic. Pupils are equal, round. Sclerae anicteric. Mucous membranes of the mouth are moist. Neck supple. No JVD or thyromegaly LUNGS: Respirations even and unlabored. Lungs essentially clear to auscultation bilaterally. HEART: Regular rate and rhythm. S1 and S2 heard. ABDOMEN: Soft. Nondistended. Nontender. EXTREMITIES: Normal range of motion. No clubbing or cyanosis. Peripheral pulses intact. Trace bilateral lower extremity edema NEUROLOGIC: Awake and alert. Oriented x 3. ASSESSMENT: Chronic diarrhea, status post colonoscopy with poor bowel prep Volume overload secondary to IVF Acute on chronic heart failure with mildly reduced EF secondary to IV fluid administration Elevated troponin, secondary to type II ME secondary to oxygen supply/demand mismatch Paroxysmal atrial fibrillation History of dual-chamber permanent pacemaker implantation, [facility], 2019 Peripheral arterial disease Hyperlipidemia PLAN: Continue current medications Patient is stable for discharge home today from a cardiac standpoint Patient instructed to take 40 mg of Lasix twice a day for 3 days and then decrease his dosage back down to 20 mg twice a day Further recommendations pending patient course Nurse practitioner note has been reviewed by physician. Signing provider agrees with the documented findings, assessment, and plan of care documented by [employer]TER as a scribe. Objective - Vital Signs Vital signs: Vital Signs Temp 97.5 F L 02/19/24 08:00 Pulse 64 02/19/24 08:00 Resp 18 02/19/24 08:00 BP 123/59 02/19/24 08:00 Pulse Ox 96 02/19/24 08:00 FiO2 Intake & Output 02/18/24 02/19/24 02/19/24 18:59 06:59 18:59 Intake Total 236 Output Total 750 Balance -514 Weight 75.5 kg 75.5 kg Intake: Oral 236 Output: Urine 750 Other: Voiding Method Toilet Toilet Diaper Diaper # Voids 1 # Bowel Movements 1 - Labs CBC & Chem 7: 02/18/24 06:53 02/19/24 07:23 Labs: Abnormal Lab Results - Last 24 Hours (Table) 02/19/24 Range/Units 07:23 BUN 8 L (9-20) mg/dL
--- NOTE | 2024-02-19 14:35 | P.PN ---
Subjective Progress Note Date: 02/18/24 Principal diagnosis: Reason for follow-up is chronic diarrhea Patient is a 78-year-old male with a past medical history significant for atrial fibrillation CVA TIA hyperlipidemia hypertension osteoarthritis patient presenting to the hospital with diarrhea that has been chronic for him however over the last 5 weeks the patient seem to have more extensive, patient did have CT abdominal pelvis did not show any acute inflammation there was concern for possible mesenteric ischemia. On today's evaluation that is 02/18/2024, patient has been afebrile, patient is breathing comfortably and is currently on room air, patient denies having any significant cough no chest pain shortness of breath, patient denies nausea vomiting or abdominal pain and diarrhea has improved. Patient did have a white count of 7.9, creatinine 0.72 stool culture reported negative Objective - Vital Signs Vital signs: Vital Signs Temp 97.4 F L 02/18/24 11:10 Pulse 65 02/18/24 11:10 Resp 18 02/18/24 11:10 BP 132/48 02/18/24 11:10 Pulse Ox 100 02/18/24 11:10 FiO2 Intake & Output 02/17/24 02/18/24 02/18/24 18:59 06:59 18:59 Intake Total 436 0 Balance 436 0 Weight 78 kg Intake: IV 200 Oral 236 0 Other: Voiding Method Toilet Toilet Toilet Diaper Diaper Diaper # Voids 1 1 1 # Bowel Movements 1 1 1 - Exam GENERAL DESCRIPTION: An elderly male lying in bed in no distress RESPIRATORY SYSTEM: Unlabored breathing , decreased breath sounds at bases HEART: S1 S2 regular rate and rhythm , ABDOMEN: Soft , no tenderness EXTREMITIES: No edema feet - Labs CBC & Chem 7: 02/18/24 06:53 02/19/24 07:23 Labs: Abnormal Lab Results - Last 24 Hours (Table) 02/17/24 02/18/24 02/18/24 Range/Units 18:43 06:53 06:53 RBC 3.24 L (4.30-5.90) m/uL Hgb 11.0 L (13.0-17.5) gm/dL Hct 34.4 L (39.0-53.0) % MCV 106.1 H (80.0-100.0) fL Chloride 108 H (98-107) mmol/L BUN 7 L (9-20) mg/dL Glucose 101 H (74-99) mg/dL Magnesium 1.5 L (1.6-2.3) mg/dL Troponin I (0.000-0.034) ng/mL Total Protein 6.1 L (6.3-8.2) g/dL Albumin 3.3 L (3.5-5.0) g/dL 02/18/24 Range/Units 06:53 RBC (4.30-5.90) m/uL Hgb (13.0-17.5) gm/dL Hct (39.0-53.0) % MCV (80.0-100.0) fL Chloride (98-107) mmol/L BUN (9-20) mg/dL Glucose (74-99) mg/dL Magnesium (1.6-2.3) mg/dL Troponin I 0.069 H* (0.000-0.034) ng/mL Total Protein (6.3-8.2) g/dL Albumin (3.5-5.0) g/dL Microbiology - Last 24 Hours (Table) 02/14/24 20:25 Stool Culture - Final Stool Assessment and Plan (1) Diarrhea Status: Acute Code(s): R19.7 - DIARRHEA, UNSPECIFIED SNOMED Code(s): 07864443 Plan: 1patient presented hospital with chronic diarrhea with recent flareup patient did not have any recent antibiotic exposure, stool for C. difficile EIA was negative CT abdominal pelvis did not show any acute inflammatory changes questionably related to ischemic bowel as there was concern for atherosclerotic disease of the mesenteric vasculature 2patient is status post colonoscopy operative report mention poor bowel prep biopsies has been obtained results are currently pending patient [facility] no need for antibiotics as the cultures has been negative Dictation was produced using [employer] dictation software. please excuse any grammatical, word or spelling errors. Time with Patient: Less than 30
== END 2024-02-19 10:08 | disposition home health service (06) | DRG 391 ==
LOC: EC 22:56 → 3SCARD 02-09 02:53
PROVIDERS: ADMIT Internal Medicine Geriatric Medicine; ATTEND Internal Medicine Geriatric Medicine
PROC: 0DBN8ZX Excision of Sigmoid Colon, Via Natural or Artificial Opening Endoscopic, Diagnostic (ICD-10-PCS; principal; 2024-02-17 08:25)
DX: K52.9 Noninfective gastroenteritis and colitis, unspecified (principal); G93.41 Metabolic encephalopathy; I21.A1 Myocardial infarction type 2; I50.23 Acute on chronic systolic (congestive) heart failure; N17.9 Acute kidney failure, unspecified; E46 Unspecified protein-calorie malnutrition; J98.11 Atelectasis; K55.1 Chronic vascular disorders of intestine; I49.5 Sick sinus syndrome; E88.09 Other disorders of plasma-protein metabolism, not elsewhere classified; E83.39 Other disorders of phosphorus metabolism; I11.0 Hypertensive heart disease with heart failure; I73.9 Peripheral vascular disease, unspecified; J44.9 Chronic obstructive pulmonary disease, unspecified; F10.10 Alcohol abuse, uncomplicated; F32.A Depression, unspecified; I48.0 Paroxysmal atrial fibrillation; E86.0 Dehydration; R09.02 Hypoxemia; E87.70 Fluid overload, unspecified; E87.6 Hypokalemia; E83.42 Hypomagnesemia; E78.5 Hyperlipidemia, unspecified; K57.30 Diverticulosis of large intestine without perforation or abscess without bleeding; M19.90 Unspecified osteoarthritis, unspecified site; D75.89 Other specified diseases of blood and blood-forming organs; Z68.22 Body mass index [BMI] 22.0-22.9, adult; Z79.01 Long term (current) use of anticoagulants; Z95.0 Presence of cardiac pacemaker; Z79.899 Other long term (current) drug therapy; Z86.73 Personal history of transient ischemic attack (TIA), and cerebral infarction without residual deficits; Z87.891 Personal history of nicotine dependence; Z88.8 Allergy status to other drugs, medicaments and biological substances; Z82.49 Family history of ischemic heart disease and other diseases of the circulatory system
CPT/HCPCS: 36415; 45380; 71045; 74174; 74176; 80048; 80053; 82607; 82747; 83605; 83735; 83880; 84100; 84132; 84443; 84484; 85025; 85027; 85610; 85730; 87045; 87046; 87324; 88305; 93005; 93306; 94760; 96361; 96365; 96368; 99291

== ENCOUNTER → 2024-10-26 | Outpatient (CLI) | payer MEDICARE ==
[2024-10-26 08:20] VITALS: BP 148/66; PULSE 51; RESP 16; TEMP 97.1
--- NOTE | 2024-10-26 09:06 | XR ---
EXAMINATION TYPE: XR lumbar spine 3V DATE OF EXAM: 10/26/2024 8:53 AM COMPARISON: 05/07/2022 CLINICAL INDICATION: Male, 79 years old with history of RADICULOPATHY, LUMBAR REGION; PHH, pain FINDINGS: Prominent atherosclerotic calcifications abdominal aorta and iliac arteries. Redemonstrated posterior and interbody lumbar fusion L4-L5. Moderate to severe degenerative disc dise ase both above and below the fusion at L3-L4 L5-S1. Moderate facet arthropathy above the fusion is we ll in severe below the fusion. Degenerative grade 1 retrolisthesis L1-L2, L2-L3, L3-L4 appears simila r. Interval placement of vertebroplasty cement within the collapsed L1 vertebral body. No new vertebr al compression collapse. Osteopenia. IMPRESSION: 1. Interval placement of vertebroplasty cement within the compressed L1 vertebral body. 2. Redemonstrated posterior and interbody lumbar fusion L4-L5. 3. Redemonstrated moderate to advanced spondylotic changes both above and below the fusion. 4. Additional similar degenerative grade 1 retrolistheses L1-L4 levels. [facility], , 10/26/2024 9:04 AM
--- NOTE | 2024-10-26 15:08 | P.PAINPG ---
PQRS Measure Charge Sheet Comment: HISTORY OF PRESENT ILLNESS: A 79 yr old male w at side as a referral from Dr Sloan presents today w severe and chronic > 1 yr secondary to L4-L5 PLIF, L1-L4 retrolisthesis for evaluation. Pt states pain level is provoked at 4-8 /10 in intensity, constant, localized in the lower lumbar spine, predominantly axial, throbbing in character w occasional shooting pain towards the buttocks, hips and LEs. Pain is provoked by standing/ walking for periods > 10 min. Pain is alleviated by PT x 6 wks which ended in Apr 2024, physician guided home stretches daily since Apr 2024, medications, repositioning and rest . Oswestry axial pain score at 38. PMH: OA, aFib, CVA, R Eye Stroke, Hyperlipidemia, HTN, PVD, MDD PSH: L4-L5 PLIF, L1-L4 retrolisthesis, Appendectomy, Back Surgery, Pacemaker (2019), LLE Bypass, RLE Bypass, L Carotid Stent, Bowel Surgery SH: 60 pack/ yr former tobacco user, Daily ETOH use, No illicit drug use FH: Mo- Septic Shock, at age 86. Fa- CAD/ AA/ CABG, at age 89. Bro- No Reported History. Sis- No Reported History. Son- No Reported History. Jc- No Reported History All: See list Medications include Tyl, Ibu, Eliquis REVIEW OF ORGAN SYSTEMS: CONSTITUTIONAL: No fevers or chills. No recent weight loss. NEUROLOGICAL: + numbness and tingling along the distal extremities. No seizure disorders or headaches. MUSCULOSKELETAL: + pain PSYCHIATRIC: Denies current depression or suicidal thoughts. Physical Examinations : Constitutional : Cooperative , not in acute distress . Neurologic : Cranial nerve II to XII intact. No focal neurological deficits. Psychiatric : alert & oriented x 3. Matching mood & appropriate affect. Judgment & insight intact. Musculoskeletal : Cervical Spine Motor strength in the deltoid and biceps: Normal right side. Normal Left side Motor strength biceps and the wrist extensors: Normal right side . Normal left side Motor strength in the triceps muscle: Normal right side. Normal left side Deep tendon reflexes: Normal at the biceps. Normal at Brachioradialis. Normal at triceps Vertebral body tenderness to deep palpation over Cervical facet loading test: positive bilaterally Spurling test: positive bilaterally Neck distraction test: positive bilaterally Heber sign: positive bilaterally Lumbar spine +Incisional scars intact Motor strength lower extremities ,thigh and legs 5/5 Right side , 5/5 Left side Deep tendon reflexes : Normal Knee Jerk. Normal Ankle Jerk Vertebral body tenderness over Goode Test positive Lumbar facet Loading Test: positive Right / positive Left Range of motion of the lumbar spine Flexion 30 degrees, extension 10 degrees Straight Leg Raise test: Left/ Right positive at degrees Rita test: positive right / positive left. Severe tenderness over the Sacroiliac joint on the Right / Left sides Gaenslen test: positive bilaterally Seated flexion test: positive bilaterally. Sacral spine : Severe tenderness over the Sacroiliac joint: right side / left side Range of motion: Flexion of the lumbar spine <60 degrees Range of motion: Extension of the lumbar spine <20 degrees Gaenslen's Test positive Rita test: positive right side / left side Thigh Thrust Test Sacral Thrust Test Imaging: CT non contrast of Brain/ Cervical from 10/20/[address] non contrast Abd/ Pelvis from 02/17/24 reviewed X ray lumbar spine from 05/07/22 reviewed Assessment/ Plan : C4-C7 spondylosis, L4-L5 PLIF, L1-L4 retrolisthesis Recommendation of x ray Lumbar spine M 54.16. Would benefit from a Caudal PB w Lysis. All questions answered. I have spent greater than 30 minutes on patient care today. Dr Moreno was available by phone for the evaluation of this patient. The time was used to review the medical records including relevant urine studies and Prescription history (MAPs), review of the available imaging, evaluation and examination of the patient, coordination of care with the medical staff and if applicable referring physicians, as well as creation of the medical record PQRS Narrative: Smoking Status Former smoker Home Medications: Ambulatory Orders Gabapentin [Neurontin] 300 mg PO BID 02/27/18 allopurinoL [Zyloprim] 300 mg PO DAILY 02/27/18 Ascorbic Acid [Vitamin C] 1,000 mg PO DAILY 10/02/18 Multivitamins, Thera [Multivitamin (formulary)] 1 tab PO DAILY 10/02/18 Apixaban [Eliquis] 5 mg PO BID 05/29/22 Fenofibrate Nanocrystallized [Fenofibrate] 145 mg PO DAILY 05/29/22 Furosemide [Lasix] 20 mg PO BID 08/30/22 Cholecalciferol [Vitamin D3 (25 Mcg = 1000 Iu)] 50 mcg PO DAILY 02/09/24 Escitalopram [Lexapro] 20 mg PO DAILY 02/09/24 Immune Support Complex 75mg 2 tab PO DAILY 02/09/24 Metoprolol Tartrate [Lopressor] 100 mg PO BID 02/09/24 Pravastatin Sodium [Pravachol] 40 mg PO DAILY 02/09/24 Folic Acid 1 mg PO DAILY #60 tab 02/19/24 Ipratropium-Albuterol Nebulize [Duoneb 0.5 mg-3 mg/3 ml Soln] 3 ml INHALATION RT-Q6H PRN #120 each 02/19/24 Isosorbide Mononitrate ER [Imdur] 30 mg PO DAILY #30 tab 02/19/24 Pantoprazole [Protonix] 40 mg PO AC-BRKFST #60 tab 02/19/24 QUEtiapine [SEROquel] 12.5 mg PO HS PRN #30 tab 02/19/24 Thiamine [Vitamin B-1] 100 mg PO DAILY #60 tab 02/19/24 Controlled Substance Measures - Controlled Substance Measures Is patient prescribed a controlled substance at discharge?: No
== END ==
LOC: PNWHC3 07:41
PROVIDERS: ATTEND Specialist
DX: M47.812 Spondylosis without myelopathy or radiculopathy, cervical region (principal); M43.16 Spondylolisthesis, lumbar region; M43.26 Fusion of spine, lumbar region; Z87.891 Personal history of nicotine dependence; Z88.8 Allergy status to other drugs, medicaments and biological substances
CPT/HCPCS: 72100; 99211

== ENCOUNTER → 2024-12-06 | Outpatient (CLI) | payer MEDICARE ==
[2024-12-06 09:57] VITALS: BP 119/71; PULSE 75; RESP 18; TEMP 96.8
--- NOTE | 2024-12-06 15:59 | P.PAINPG ---
Objective - Vital Signs Vital signs: Intake & Output 12/05/24 12/06/24 12/06/24 18:59 06:59 18:59 Weight 72.575 kg PQRS Measure Charge Sheet Comment: HISTORY OF PRESENT ILLNESS: A 79 yr old male w at side presents today w severe and chronic > 1 yr secondary to L4-L5 PLIF, L1-L4 retrolisthesis for evaluation. Pt states pain level is provoked at 4-8 /10 in intensity, constant, localized in the lower lumbar spine, predominantly axial, throbbing in character w occasional shooting pain towards the buttocks, hips and LEs. Pain is provoked by standing/ walking for periods > 10 min. Pain is alleviated by PT x 6 wks which ended in Apr 2024, physician guided home stretches daily since Apr 2024, medications, repositioning and rest . Oswestry axial pain score at 38. Interventional procedures include L4-L5 PLIF, L1-L4 retrolisthesis Medications include Tyl, Ibu, Eliquis REVIEW OF ORGAN SYSTEMS: CONSTITUTIONAL: No fevers or chills. No recent weight loss. NEUROLOGICAL: + numbness and tingling along the distal extremities. No seizure disorders or headaches. MUSCULOSKELETAL: + pain PSYCHIATRIC: Denies current depression or suicidal thoughts. Physical Examinations : Constitutional : Cooperative , not in acute distress . Neurologic : Cranial nerve II to XII intact. No focal neurological deficits. Psychiatric : alert & oriented x 3. Matching mood & appropriate affect. Judgment & insight intact. Musculoskeletal : Cervical Spine Motor strength in the deltoid and emma ps: Normal right side. Normal Left side Motor strength biceps and the wrist extensors: Normal right side . Normal left side Motor strength in the triceps muscle: Normal right side. Normal left side Deep tendon reflexes: Normal at the biceps. Normal at Brachioradialis. Normal at triceps Vertebral body tenderness to deep palpation over Cervical facet loading test: positive bilaterally Spurling test: positive bilaterally Neck distraction test: positive bilaterally Heber sign: positive bilaterally Lumbar spine +Incisional scars intact Motor strength lower extremities ,thigh and legs 5/5 Right side , 5/5 Left side Deep tendon reflexes : Normal Knee Jerk. Normal Ankle Jerk Vertebral body tenderness over L5 Goode Test positive BL L5-S1 Lumbar facet Loading Test: positive Right / positive Left Range of motion of the lumbar spine Flexion 30 degrees, extension 10 degrees Straight Leg Raise test: Left/ Right positive at degrees Rita test: positive right / positive left. Severe tenderness over the Sacroiliac joint on the Right / Left sides Gaenslen test: positive bilaterally Seated flexion test: positive bilaterally. Sacral spine : Severe tenderness over the Sacroiliac joint: right side / left side Range of motion: Flexion of the lumbar spine <60 degrees Range of motion: Extension of the lumbar spine <20 degrees Gaenslen's Test positive Rita test: positive right side / left side Thigh Thrust Test Sacral Thrust Test Imaging: CT non contrast of Brain/ Cervical from 10/20/[address] non contrast Abd/ Pelvis from 02/17/24 reviewed X ray lumbar spine from 05/07/[address] non contrast lumbar spine from 11/11/24 reviewed Assessment/ Plan : C4-C7 spondylosis, L1-L2 vertebroplasty, L4-L5 PLIF, L5-S1 laminectomy, L1-L4 retrolisthesis Recommendation of Caudal PB #1. Risks, benefits of procedure discussed and patient verbalized understanding. Protocol for discontinuation/continuation of medication surrounding procedure discussed. All questions answered. I have spent greater than 30 minutes on patient care today. Dr Moreno was available by phone for the evaluation of this patient. The time was used to review the medical records including relevant urine studies and Prescription history (MAPs), review of the available imaging, evaluation and examination of the patient, coordination of care with the medical staff and if applicable referring physicians, as well as creation of the medical record - Pain Location Bilateral Lower Back Non-Pharmacological Interventions: Physical Therapy Pharmacological Interventions: PRN Medication, Scheduled Medication, Topical Medication PQRS Narrative: Smoking Status Former smoker Home Medications: Ambulatory Orders Gabapentin [Neurontin] 300 mg PO BID 02/27/18 allopurinoL [Zyloprim] 300 mg PO DAILY 02/27/18 Ascorbic Acid [Vitamin C] 1,000 mg PO DAILY 10/02/18 Multivitamins, Thera [Multivitamin (formulary)] 1 tab PO DAILY 10/02/18 Apixaban [Eliquis] 5 mg PO BID 05/29/22 Cholecalciferol [Vitamin D3 (25 Mcg = 1000 Iu)] 50 mcg PO DAILY 02/09/24 Folic Acid 1 mg PO DAILY #60 tab 02/19/24 Thiamine [Vitamin B-1] 100 mg PO DAILY #60 tab 09/05/24 Cholestyramine (with Sugar) [Cholestyramine Packet] 4 gm PO TID 10/29/24 HYDROcodone/APAP 7.5-325MG [[place] 7.5-325] 1 tab PO Q6H PRN 10/29/24 Pantoprazole [Protonix] 40 mg PO DAILY 10/29/24 QUEtiapine [SEROquel] 12.5 mg PO HS 10/29/24 Albuterol Inhaler [Ventolin Hfa Inhaler] 2 puff INHALATION Q6H PRN #1 each 11/04/24 Aspirin 81 mg PO DAILY 30 Days #30 tab 11/04/24 Atorvastatin [Lipitor] 20 mg PO DAILY 30 Days #30 tab 11/04/24 Dapagliflozin Propanediol [Farxiga] 10 mg PO DAILY #30 tab 11/04/24 Furosemide [Lasix] 20 mg PO DAILY #30 11/04/24 Metoprolol Succinate (ER) [Toprol XL] 25 mg PO DAILY 30 Days #30 tab 11/04/24 Spironolactone [Aldactone] 25 mg PO DAILY 30 Days #30 tab 11/04/24 predniSONE 10 mg PO DAILY 8 Days #20 tab 11/04/24 Apixaban [Eliquis] 5 mg PO BID 12/06/24 Escitalopram Oxalate [Lexapro] 20 mg PO DAILY 12/06/24 HYDROcodone/APAP 5-325MG [[place] 5-325] 1 tab PO Q4HR PRN 3 Days #18 tab 12/06/24 diazePAM [Valium] 10 mg PO DAILY 1 Days #1 tab 12/06/24 Controlled Substance Measures - Controlled Substance Measures Is patient prescribed a controlled substance at discharge?: Yes When asked, does pt state using other controlled substances?: No If prescribed controlled substance>3 days was MAPS reviewed?: Prescribed <3 Days
== END ==
LOC: PNWHC3 09:34
PROVIDERS: ATTEND Specialist
DX: M47.812 Spondylosis without myelopathy or radiculopathy, cervical region (principal); M47.817 Spondylosis without myelopathy or radiculopathy, lumbosacral region; M43.17 Spondylolisthesis, lumbosacral region; Z98.890 Other specified postprocedural states; Z88.8 Allergy status to other drugs, medicaments and biological substances; Z87.891 Personal history of nicotine dependence
CPT/HCPCS: 99211

== ENCOUNTER 2024-12-30 09:21 | Day surgery (SDC) | payer MEDICARE ==
[2024-12-28 13:21] VITALS: BMI 22.4
[~2024-12-30 09:21] MED LIST changes: -HYDROmorphone 0.5 MG/0.5 ML SYRINGE IVP PRN; -LIDOCAINE 1% (10MG/ML) FOR IV START INTRADERMA PRN; -ONDANSETRON 4 MG/2 ML VIAL IVP ONE; -ceFAZolin 1,000 MG in SODIUM CHLORIDE 0.9% IRRIGATIO 1,000 ML IRRIGATION PRN
[2024-12-30 10:38] VITALS: TEMP 97.1
[2024-12-30] MEDS ORDERED: IOPAMIDOL M300 15ML VIAL ONE (11:36)
[2024-12-30] MEDS ORDERED: methylPREDNISolone ACETATE 80 MG/ML 1 ML VIAL ONE (11:36)
--- NOTE | 2024-12-30 11:47 | P.PCN ---
Description of Procedure: Preprocedure diagnosis. Post laminectomy syndrome. Lumbar radiculopathy. Postprocedure diagnosis. As above. Procedure done. Injection of radio contrast material into the caudal epidural space. Caudal epidurogram, interpretation of caudal epidurogram, caudal epidural steroid injection under fluoroscopic guidance. Anesthesia. Local infiltration with local anesthetics. In OR, continuous pulse ox, EKG, blood pressure and verbal communication was maintained. Blood loss. None. Indication. Discussed with the patient procedure, alternatives, complications which may including infection bleeding and nerve damage aggravation of pain all of which could be permanent. Patient understands and questions were answered. Procedure note. After getting consent patient in OR in prone position. Back prepped with chlorhexidine 3 times and draped in sterile fashions. 10 mL of 1% lidocaine injected subcutaneously. Under AP and crosstable lateral view of the fluoroscope, 20-gauge Tuohy needle was introduced through the sacral hiatus into caudal epidural space. After needle position confirmation by AP and crosstable lateral view, 5 mL of Omnipaque 200 radiocontrast material injected which was noted into the caudal epidural space. No contrast was noted into the intrathecal or intravascular space. After repeat negative aspiration 10 mL of solution injected which consists of 9 mL of preservative-free normal saline mixed with 1 mL of 80 mg Depo-Medrol. Tuohy needle was taken out and bandages applied. Disposition. Patient tolerated the procedure well. No complication. Discharged home in stable condition.
[2024-12-30 12:10] VITALS: BP 151/63; PULSE 60; RESP 16
--- NOTE | 2024-12-30 12:18 | FL ---
EXAMINATION TYPE: FL guided pain mgmt statistic DATE OF EXAM: 12/30/2024 FLUOROSCOPY caudal epidural steroid inj in OR fl time 17.6 secs dap [id number] 3 images are submitted. [facility], , 12/30/2024 12:15 PM
== END 2024-12-30 12:30 | disposition home or self-care (01) ==
LOC: ORPAIN 09:21
PROVIDERS: ATTEND Pain Medicine Interventional Pain Medicine
DX: M96.1 Postlaminectomy syndrome, not elsewhere classified (principal); M54.16 Radiculopathy, lumbar region
CPT/HCPCS: 62323; Q9967; J1010